=== PATIENT | male | born 1975 | race Caucasian/White ===

== ENCOUNTER → 2022-11-02 08:35 | Outpatient (BNVA) | payer OTHER, SELFPAY | PROVIDERS: PCP Internal Medicine; Referring Provider Internal Medicine; Visit Provider Physician Assistant | DX: Z13.89 Encounter for screening for other disorder (principal) ==

== ENCOUNTER → 2022-11-10 08:25 | Outpatient (BNVA) | payer OTHER, SELFPAY | PROVIDERS: PCP Internal Medicine; Visit Provider Physician Assistant Surgical | DX: E66.9 Obesity, unspecified (principal); D68.2 Hereditary deficiency of other clotting factors; I47.1 Supraventricular tachycardia; Z68.37 Body mass index [BMI] 37.0-37.9, adult | CPT/HCPCS: 99202 ==

== ENCOUNTER 2022-11-12 08:02 | Outpatient (REF) | payer OTHER, SELFPAY ==
--- NOTE | ~2022-11-12 | XR_ITS ---
EXAMINATION: XR CHEST CLINICAL INFORMATION: Obesity. COMPARISON: None TECHNIQUE: 2 views of the chest were obtained. FINDINGS: No significant cardiomediastinal contour abnormality. Atrial loop recorder noted projecting over the left lower cardiomediastinal silhouette. No focal airspace opacity, pleural effusion or pneumothorax. Partially imaged cervical spine fusion hardware. No acute osseous abnormalities. The visualized upper abdomen is within normal limits. XR/XR chest 2V IMPRESSION: 1. No acute cardiopulmonary findings. 2. Atrial loop recorder noted.
--- NOTE | 2022-11-12 08:08 | ECG_ITS ---
Test Reason : obs Blood Pressure : / mmHG Vent. Rate : 059 BPM Atrial Rate : 059 BPM P-R Int : 162 ms QRS Dur : 078 ms QT Int : 396 ms P-R-T Axes : 059 022 043 degrees QTc Int : 392 ms Sinus bradycardia with sinus arrhythmia with occasional Premature ventricular complexes Otherwise normal ECG No previous ECGs available Referred By: Balta Bose Electronically Signed By:Azar Bacon
[2022-11-12 08:20] LABS: MANUAL DIFF FLAG NO
[2022-11-12 08:55] LABS: Basophils Percent Auto 0.6 % (0-2); Eosinophils Absolute Auto 0.2 X10*3/uL (0.0-0.4); Eosinophils Percent Auto 2.6 % (0-4); Hematocrit 44.2 % (42.0-52.0); Hemoglobin 15.1 g/dl (14.0-18.0); Imm Gran Abs Auto 0.02 X10*3/uL (0.00-0.03); Imm Gran Pct Auto 0.3 % (0.0-0.4); Lymphocytes Absolute Auto 2.5 X10*3/uL (1.2-4.9); Lymphocytes Percent Auto 38.1 % (20-40); Mean Corpuscular HGB Conc 34.2 g/dl (31.0-36.0); Mean Corpuscular Hemoglobin 29.3 pg (27.0-33.0); Mean Corpuscular Volume 85.8 fL (80.0-98.0); Mean Platelet Volume 11.3 fL (9.4-12.4); Monocytes Absolute Auto 0.6 X10*3/uL (0.1-1.2); Monocytes Percent Auto 9.8 % (2-11); Neutrophils Absolute Auto 3.2 x10*3/uL (2.0-8.3); Neutrophils Percent Auto 48.6 % (45-73); Platelet Count 256 X10*3/uL (160-400); Red Blood Count 5.15 X10*6/uL (4.60-5.80); Red Cell Distribution Width 11.9 % (11.0-16.0); White Blood Count 6.5 X10*3/uL (4.8-10.8)
[2022-11-12 09:29] LABS: Alanine Aminotransferase 40 U/L (0-40); Albumin Level 4.1 g/dL (3.5-5.0); Alkaline Phosphatase 64 U/L (39-117); Anion Gap 13 (12-20); Aspartate Amino Transferase 35 U/L (5-37); Bilirubin Total 1.1 mg/dL (0.0-1.0); Blood Urea Nitrogen 17 mg/dL (9-16); C Reactive Protein < 0.10 mg/dL (< or = 0.50); Calcium 9.4 mg/dL (8.4-10.2); Carbon Dioxide 25 mmol/L (22-29); Chloride 107 mmol/L (96-108); Cholesterol 228 mg/dL; Estimated Glomerular Filt Rate > 60; Glucose Random 114 mg/dL (60-115); HDL Cholesterol 38 mg/dL; Iron 170 mcg/dL (45-160); LDL Cholesterol Calculated 156 mg/dl; Percent Iron Saturation 58 % (15-50); Potassium 4.1 mmol/L (3.3-5.1); Sodium 141 mmol/L (135-145); Total Iron Binding Capacity 293 mcg/dL (228-428); Total Protein 6.9 g/dL (6.5-8.0); Triglycerides 171 mg/dL; Unsaturated Iron Binding 123 ug/dL
[2022-11-12 10:01] LABS: Ferritin 384 ng/mL (20-250); Folate 11.1 ng/mL (> or = 4.0); Insulin 23 uU/mL (2-29); TSH reflex Free T4 1.49 uIU/mL (0.32-4.0); Vitamin B12 454 pg/mL (200-900)
[2022-11-12 12:02] LABS: Estimated Average Glucose 108 mg/dL; Hemoglobin A1c % 5.4 %
[2022-11-16 14:14] LABS: Calcium (PTHI) 9.1 mg/dL (8.6-10.3); PTHI 41 pg/mL (16-77)
[2022-11-17 00:13] LABS: Zinc 79 mcg/dL (60-130)
[2022-11-18 10:13] LABS: Vitamin A 51 mcg/dL (38-98)
[2022-11-21 17:49] LABS: Vitamin B1 7 nmol/L (8-30)
== END 2022-11-12 08:03 | disposition home or self-care (01) ==
LOC: HO.LAB 08:02
PROVIDERS: PCP Internal Medicine; Visit Provider Physician Assistant Surgical
DX: E66.9 Obesity, unspecified (principal); I10 Essential (primary) hypertension
CPT/HCPCS: 36415; 71046; 80053; 80061; 82306; 82607; 82728; 82746; 83036; 83525; 83540; 83970; 84425; 84443; 84590; 84630; 85025; 86140; 93005

== ENCOUNTER → 2022-11-25 08:47 | Outpatient (BNVA) | payer OTHER, SELFPAY | PROVIDERS: PCP Internal Medicine; Visit Provider Dietitian, Registered | DX: E66.9 Obesity, unspecified (principal); Z68.35 Body mass index [BMI] 35.0-35.9, adult | CPT/HCPCS: 97802 ==

== ENCOUNTER 2022-11-30 13:56 | Outpatient (REF) | payer OTHER, SELFPAY ==
[2022-12-06 12:08] LABS: H Pylori Breath Test Negative (Negative)
== END 2022-11-30 13:57 | disposition home or self-care (01) ==
LOC: HO.LNP 13:56
PROVIDERS: PCP Internal Medicine; Referring Provider Internal Medicine; Visit Provider Physician Assistant Surgical
DX: E66.9 Obesity, unspecified (principal); Z79.01 Long term (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; Z68.37 Body mass index [BMI] 37.0-37.9, adult; Z71.3 Dietary counseling and surveillance; Z79.899 Other long term (current) drug therapy
CPT/HCPCS: 83013; 99211; 99212

== ENCOUNTER → 2022-12-08 11:54 | Outpatient (BNVA) | payer OTHER, SELFPAY | PROVIDERS: PCP Internal Medicine; Referring Provider Physician Assistant Surgical; Visit Provider Counselor Mental Health | DX: F41.0 Panic disorder [episodic paroxysmal anxiety] (principal); I47.1 Supraventricular tachycardia; E66.9 Obesity, unspecified | CPT/HCPCS: 90791 ==

== ENCOUNTER → 2022-12-30 08:22 | Outpatient (BNVA) | payer OTHER, SELFPAY | PROVIDERS: PCP Internal Medicine; Visit Provider Physician Assistant Surgical | DX: E66.9 Obesity, unspecified (principal); Z68.32 Body mass index [BMI] 32.0-32.9, adult | CPT/HCPCS: 99212 ==

== ENCOUNTER → 2023-01-06 14:46 | Outpatient (BNVA) | payer OTHER, SELFPAY | PROVIDERS: PCP Internal Medicine; Visit Provider Counselor Mental Health | DX: E66.9 Obesity, unspecified (principal); F41.0 Panic disorder [episodic paroxysmal anxiety]; I47.1 Supraventricular tachycardia; G47.33 Obstructive sleep apnea (adult) (pediatric); I10 Essential (primary) hypertension; D68.51 Activated protein C resistance; I26.99 Other pulmonary embolism without acute cor pulmonale; Z95.9 Presence of cardiac and vascular implant and graft, unspecified; Z68.32 Body mass index [BMI] 32.0-32.9, adult | CPT/HCPCS: 99212 ==

== ENCOUNTER 2023-01-27 08:59 | Outpatient (REF) | payer OTHER, SELFPAY ==
--- NOTE | ~2023-01-27 | FL_ITS ---
EXAMINATION: XR FLUOROSCOPY UPPER GI WITH AIR CLINICAL INFORMATION: Obesity. COMPARISON: None available. TECHNIQUE: Air-contrast upper GI examination. FINDINGS: Patient swallowed thin and thick barium and half-inch diameter barium tablet without difficulty. There is no evidence of nasopharyngeal reflux or tracheal aspiration. There is normal esophageal motility. No hiatal hernia is identified. No persistent esophageal stricture. No esophageal ulcerations seen. There was spontaneous gastroesophageal reflux to the level of the thoracic inlet, which cleared rapidly. The stomach demonstrates normal distensibility without abnormal mass or ulceration. There was no delay in gastric emptying. The duodenal bulb and sweep appeared unremarkable other than for a small duodenal diverticulum off the third portion of the duodenum. Status post previous cervical spine surgery with hardware present. FLUOROSCOPY TIME: 1.9 minutes. DOSE AREA PRODUCT: 27.480 Gy-cm2 (simental-centimeter squared). FL/FL upper GI w air IMPRESSION: Spontaneous transient and rapidly clearing gastroesophageal reflux to the level of the thoracic inlet without esophageal ulceration identified. Small duodenal diverticulum. Otherwise unremarkable upper GI examination.
== END 2023-01-27 09:00 | disposition home or self-care (01) ==
LOC: HO.XRAY 08:59
PROVIDERS: PCP Internal Medicine; Visit Provider Physician Assistant Surgical
DX: E66.9 Obesity, unspecified (principal); I10 Essential (primary) hypertension
CPT/HCPCS: 74246

== ENCOUNTER 2023-01-28 08:23 | Outpatient (REF) | payer OTHER, SELFPAY ==
--- NOTE | ~2023-01-28 | US_ITS ---
EXAMINATION: US COMPLETE ABDOMEN WITH LIVER ELASTOGRAPHY CLINICAL INFORMATION: Obesity. COMPARISON: None available. TECHNIQUE: Real-time imaging of the abdominal viscera. Noninvasive ultrasound liver fibrosis assessment is performed using Mark ElastPQ point quantification shear wave elastography (2D-SWE) with a C5-2 MHz transducer. Multiple elastography samples are obtained. FINDINGS: PANCREAS: Normal. The visualized pancreatic head and body are normal in appearance. The remainder of the pancreas is obscured from visualization by the overlying bowel gas. ABDOMINAL AORTA: The middle, and distal aortic segments are normal in caliber. INFERIOR VENA CAVA: Visualized portions are normal. LIVER: Normal. The liver demonstrates normal size, contour and echogenicity. No focal lesion or intrahepatic biliary duct dilatation. The right lobe measures 15.6 cm in length. The left lobe measures 7.7 cm in length. Portal flow is hepatopetal. Shear wave liver elastography median stiffness is 1.94 m/s (reference: normal median stiffness is 1.3 m/s or less). IQR/median stiffness to assess sampling precision is 0.15 (reference: good quality data set is IQR/median stiffness of 0.15 or less). GALLBLADDER: Gallbladder wall thickness is 0.2 cm. The gallbladder is physiologically distended without evidence of stones, sludge, polyps, wall thickening or pericholecystic fluid. COMMON BILE DUCT: Normal in caliber measuring 0.5 cm in diameter. RIGHT KIDNEY: Normal. No hydronephrosis. No renal calculi or focal parenchymal lesions. The kidney measures 12.1 cm in maximum dimension. LEFT KIDNEY: There is an anechoic cyst in the midpole measuring 0.7 x 0.5 x 0.7 cm. No hydronephrosis. No renal calculi or focal parenchymal lesions. The kidney measures 12.4 cm in maximum dimension. SPLEEN: Normal. The spleen measures 10.4 cm in maximum dimension. FREE FLUID: None. US/US abdomen comp w elastography IMPRESSION: 1. Anechoic cyst midpole left kidney. Rest of the abdominal ultrasound is unremarkable. 2. Liver elastography: Median liver stiffness measures 1.94 m/s corresponding to cACLD (suggestive). REFERENCE: Society of Radiologists in Ultrasound Liver Stiffness Thresholds (2020): LIVER STIFFNESS THRESHOLDS: *Liver Stiffness equal or less than 1.3 m/s: High probability of being normal. *Liver Stiffness less than 1.7 m/s: In the absence of other known clinical signs, rules out compensated advanced chronic liver disease. *Liver Stiffness 1.7-2.1 m/s: Suggestive of compensated advanced chronic liver disease but need further test for confirmation. *Liver Stiffness over 2.1 m/s: Rules in compensated advanced chronic liver disease. *Liver Stiffness over 2.4 m/s: Suggestive of clinically significant portal hypertension. QUALITY OF DATA SET: *IQR/Median value equal or less than 0.15 implies a quality data set. *IQR/Median value over 0.15 implies a poor quality data set. SIGNIFICANT CHANGE FROM PRIOR EXAM: Significant change if liver stiffness measurement is 10% or greater from prior exam. OTHER CONSIDERATIONS: The stage of liver fibrosis may be overestimated in the setting of acute hepatitis, liver inflammation, elevated liver function tests, hepatic vascular congestion, obstructive cholestasis, non-fasting state, and infiltrative diseases such as amyloidosis and lymphoma. In some patients with NAFLD, the liver stiffness thresholds for compensated advanced chronic liver disease may be lower. In causes other than viral hepatitis and NAFLD, liver stiffness thresholds are not well established.
== END 2023-01-28 08:24 | disposition home or self-care (01) ==
LOC: HO.US 08:23
PROVIDERS: PCP Internal Medicine; Visit Provider Physician Assistant Surgical
DX: Z01.818 Encounter for other preprocedural examination (principal); E66.9 Obesity, unspecified; K21.9 Gastro-esophageal reflux disease without esophagitis; I10 Essential (primary) hypertension
CPT/HCPCS: 76705; 76981

== ENCOUNTER → 2023-02-02 09:48 | Outpatient (BNVA) | payer OTHER, SELFPAY | PROVIDERS: PCP Internal Medicine; Visit Provider Physician Assistant Surgical ==

== ENCOUNTER 2023-02-05 | Outpatient (REF) | payer OTHER, SELFPAY ==
[2023-02-04 11:14] VITALS: BMI 31.3
== END 2023-02-05 00:01 ==
LOC: HO.PAT
PROVIDERS: PCP Internal Medicine; Visit Provider Surgery
DX: Z01.818 Encounter for other preprocedural examination (principal); E66.9 Obesity, unspecified
CPT/HCPCS: 86850; 86900; 86901

== ENCOUNTER 2023-02-05 08:15 | Outpatient (REF) | payer OTHER, SELFPAY ==
[2023-02-05 08:48] LABS: MANUAL DIFF FLAG NO
[2023-02-05 09:19] LABS: Basophils Percent Auto 0.7 % (0-2); Eosinophils Absolute Auto 0.2 X10*3/uL (0.0-0.4); Eosinophils Percent Auto 3.9 % (0-4); Hematocrit 42.3 % (42.0-52.0); Hemoglobin 14.6 g/dl (14.0-18.0); Imm Gran Abs Auto 0.01 X10*3/uL (0.00-0.03); Imm Gran Pct Auto 0.2 % (0.0-0.4); Lymphocytes Absolute Auto 2.1 X10*3/uL (1.2-4.9); Lymphocytes Percent Auto 34.6 % (20-40); Mean Corpuscular HGB Conc 34.5 g/dl (31.0-36.0); Mean Corpuscular Volume 86.9 fL (80.0-98.0); Mean Platelet Volume 11.4 fL (9.4-12.4); Monocytes Absolute Auto 0.7 X10*3/uL (0.1-1.2); Monocytes Percent Auto 11.5 % (2-11); Neutrophils Absolute Auto 2.9 x10*3/uL (2.0-8.3); Neutrophils Percent Auto 49.1 % (45-73); Platelet Count 218 X10*3/uL (160-400); Red Blood Count 4.87 X10*6/uL (4.60-5.80); Red Cell Distribution Width 12.6 % (11.0-16.0); White Blood Count 5.9 X10*3/uL (4.8-10.8)
[2023-02-05 09:27] LABS: INTERNATIONAL NORM RATIO 2.5 (0.9-1.1); Prothrombin Time 30.1 SEC (10.0-13.1)
[2023-02-05 09:30] LABS: Partial Thromboplastin Time 45.7 SEC (26.0-36.4)
[2023-02-05 09:57] LABS: Alanine Aminotransferase 23 U/L (0-40); Albumin Level 4.1 g/dL (3.5-5.0); Alkaline Phosphatase 61 U/L (39-117); Anion Gap 11 (12-20); Aspartate Amino Transferase 27 U/L (5-37); Bilirubin Total 0.8 mg/dL (0.0-1.0); Blood Urea Nitrogen 17 mg/dL (9-16); C Reactive Protein < 0.10 mg/dL (< or = 0.50); Calcium 9.8 mg/dL (8.4-10.2); Carbon Dioxide 30 mmol/L (22-29); Chloride 106 mmol/L (96-108); Cholesterol 170 mg/dL; Estimated Glomerular Filt Rate > 60; Glucose Random 92 mg/dL (60-115); HDL Cholesterol 43 mg/dL; Iron 141 mcg/dL (45-160); LDL Cholesterol Calculated 115 mg/dl; Percent Iron Saturation 51 % (15-50); Potassium 4.6 mmol/L (3.3-5.1); Sodium 142 mmol/L (135-145); Total Iron Binding Capacity 278 mcg/dL (228-428); Total Protein 6.7 g/dL (6.5-8.0); Triglycerides 62 mg/dL; Unsaturated Iron Binding 137 ug/dL
[2023-02-05 10:06] LABS: Estimated Average Glucose 97 mg/dL; Hemoglobin A1C 122.9263 umol/L
[2023-02-05 10:11] LABS: Ferritin 270 ng/mL (20-250); TSH reflex Free T4 1.53 uIU/mL (0.32-4.0); Vitamin B12 476 pg/mL (200-900); Vitamin D 25-OH Total 54.4 ng/mL (>30)
[2023-02-08 11:03] LABS: Calcium (PTHI) 9.6 mg/dL (8.6-10.3); PTHI 28 pg/mL (16-77)
[2023-02-10 16:19] LABS: Zinc 80 mcg/dL (60-130)
[2023-02-11 23:39] LABS: Vitamin A 35 mcg/dL (38-98)
[2023-02-12 13:03] LABS: Vitamin B1 76 nmol/L (8-30)
== END 2023-02-05 08:16 | disposition home or self-care (01) ==
LOC: HO.LAB 08:15
PROVIDERS: PCP Internal Medicine; Visit Provider Surgery
DX: E66.9 Obesity, unspecified (principal); G47.33 Obstructive sleep apnea (adult) (pediatric); I10 Essential (primary) hypertension; I47.1 Supraventricular tachycardia; I26.99 Other pulmonary embolism without acute cor pulmonale; D68.51 Activated protein C resistance; Z98.84 Bariatric surgery status; Z79.899 Other long term (current) drug therapy; Z79.01 Long term (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; Z95.9 Presence of cardiac and vascular implant and graft, unspecified
CPT/HCPCS: 36415; 80053; 80061; 82306; 82607; 82728; 83036; 83540; 83970; 84425; 84443; 84590; 84630; 85025; 85610; 85730; 86140; 99212

== ENCOUNTER → 2023-02-17 14:12 | Outpatient (BNVA) | payer OTHER, SELFPAY | PROVIDERS: PCP Internal Medicine; Referring Provider Internal Medicine; Visit Provider Internal Medicine | DX: Z01.810 Encounter for preprocedural cardiovascular examination (principal); I47.1 Supraventricular tachycardia; R07.2 Precordial pain | CPT/HCPCS: 99202 ==

== ENCOUNTER → 2023-03-17 07:49 | Outpatient (REF) | payer OTHER, SELFPAY ==
--- NOTE | 2023-03-17 07:53 | CA_ITS ---
Transthoracic Echocardiogram Patient (Last, First, Middle): Abdoulaye Suarez, Gender: Male Date of : 1975 Age: 47 Procedure Date: 03/17/2023 Procedure Type: Transthoracic Echocardiogram Location: OP Height: 185.42 cm Weight: 102.97 kg BSA: 2.27 m2 Heart Rate: bpm BP: 124 / 78 mmHg [employer]: Referring MD: Juan Daniel Quijano MD Symptoms: I47.1 - Supraventricular tachycardia Study Quality: Adequate ECG Rhythm: Sinus Conclusions: - The left ventricular systolic function is normal. The calculated ejection fraction is 61% by biplane method. - No obvious valvular pathology seen on this study. Findings Left Ventricle Normal left ventricular cavity size. There is normal left ventricular wall thickness. The left ventricular systolic function is normal. The calculated ejection fraction is 61% by biplane method. There is no evidence of regional wall motion abnormalities. Diastolic function is normal for age. Right Ventricle Normal right ventricular cavity size and systolic function. Atria Both atria are normal in size. Aortic Valve There is a normal trileaflet aortic valve. There is no aortic valve stenosis. There is no aortic valve regurgitation. Mitral Valve The mitral valve appears normal. There is no mitral valve regurgitation. There is no mitral valve stenosis. Pulmonic Valve The pulmonic valve is likely normal. Tricuspid Valve Normal tricuspid valve structure. There is mild tricuspid valve regurgitation. There is no evidence of pulmonary hypertension. Great Vessels The asc aorta is normal in size. Venous The inferior vena cava is normal in size and collapses greater than 50% with inspiration. There is evidence of a dilated coronary sinus. Pericardium/Pleural There is no evidence of pericardial effusion. Prior Study Comparison No prior study available for comparison. Recommendations, Care & Conclusions No obvious valvular pathology seen on this study. Measurements 2D Linear Measurements IVSd: 1.03 0.6-0.9/0.6-1.0 cm LVIDd: 5.12 3.9-5.3/4.2-5.9 cm LVIDd Index: 2.26 2.4-3.2/2.2-3.1 cm/m2 LVIDs: 2.96 2.0-3.6 cm LVPWd: 1.01 0.7-1.1 cm Ao Root: 3.50 2.1-3.5 cm LA Diam: 4.10 2.7-3.8/3.0-4.0 cm LAIDs Index: 1.81 1.5-2.3 cm/m2 LV Mass: 242.16 67-162/88-224 g LV Mass Index: 106.68 43-95/49-115 g/m2 LVOT Diam: 2.40 3.0+(-)1.3 cm 2D Systolic Function EF 4C: 55.80 >55% EF 2C: 65.80 >55% EF BiP: 60.90 >55% Mitral Valve MV Pk E: 0.75 MV PK A: 0.54 MV Decel Time: 196.00 E/A: 1.40 E'Lateral: 14.10 E'Medial: 10.00 E/E' Med: 7.50 E/E' Lat: 5.30 PHT: 58.00 MVA PHT: 3.79 Decel [place]: 3.84 Aortic Valve AoV Pk Micky: 1.39 AoV Mn Micky: 0.99 AoV VTI: 0.41 AoV Pk Grad: 8.00 Aov Mn Grad: 5.00 NED Cont.VTI: 2.54 LVOT LVOT Pk Micky: 1.07 LVOT Mn Micky: 0.67 LVOT VTI: 0.23 LVOT Pk Grad: 5.00 LVOT Mn Grad: 2.00 LVOT Diam: 2.40 LVOT Area: 4.52 Diastolic Function MV Pk E: 0.75 MV Pk A: 0.54 E/A: 1.40 E'Medial: 10.00 E/E' Med: 7.50 E' Laterial: 14.10 E/E' Lat: 5.30 Right Ventricle TAPSE (mm): 25.90 TVS' Micky: 12.30 Tricuspid Valve TR Pk Micky: 2.25 TR Pk Grad: 20.00 RA Press: 3.00 Great Vessels Aorta Ao Root-2D: 3.50 2.0-3.7 cm Ao Asc: 3.20 2.1-3.4 cm Pulmonary Valve PV Pk Micky: 1.05 Peak PV Grad: 4.00 [place] Pk Micky: 1.02 Updated in Other Vendor System with Status of Final Juan Daniel Quijano MD electronically signed on 03/19/2023 2:10:30 PM with status of Final
== END ==
LOC: HO.CARD 07:49
PROVIDERS: PCP Internal Medicine; Visit Provider Internal Medicine
DX: I47.1 Supraventricular tachycardia (principal)
CPT/HCPCS: 93306

== ENCOUNTER 2023-04-04 16:56 | Emergency (ER) | payer OTHER, SELFPAY ==
[2023-04-04 17:46] VITALS: BP 117/66; PULSE 55; RESP 18; TEMP 36.5; O2SAT 98; BMI 29.0
--- NOTE | 2023-04-04 17:56 | ED_ITS ---
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 Pain started after patient was swimming and did exert pain increases on palpation and movement of the right shoulder and taking a deep breath no cough no shortness of breath patient INR was 2.8, 3 days ago saturating 98% at room no fever no chills no cough Related Data Home Medications Medication Instructions Recorded Confirmed CPAP (CPAP Machine/Device) 11/02/22 04/07/23 warfarin 10 mg tablet 10 mg PO DAILY 11/02/22 04/07/23 hydroxyzine HCl 10 mg tablet 10 mg PO Q8-10H PRN Anxiety 02/04/23 04/07/23 lorazepam 1 mg tablet 1 mg PO BEDTIME PRN Sleep 02/04/23 04/07/23 thiamine HCl (vitamin B1) 100 mg 100 mg PO DAILY 04/07/23 04/07/23 tablet Previous Rx's Medication Instructions Recorded polyethylene glycol 3350 17 gram See Rx Instructions PO DAILY #14 02/04/23 oral powder packet (Miralax) packets cholecalciferol (vitamin D3) 125 125 mcg PO DAILY #30 caps 02/15/23 mcg (5,000 unit) capsule rosuvastatin 10 mg tablet 10 mg PO DAILY #90 tabs 04/07/23 Allergies Allergy/AdvReac Type Severity Reaction Status Date / Time codeine Allergy Nausea Verified 04/07/23 08:54 STATINS Allergy Mild HEART Uncoded 04/07/23 08:54 PALPITATIONS Review of Systems Review of Systems: Yes all other systems are reviewed and are negative [facility] Past Medical History Medical History Anxiety Depression Factor V Leiden GERD (gastroesophageal reflux disease) Hereditary deficiency of other clotting factors Hyperlipidemia Obesity Pulmonary embolism Sleep apnea Surgical History History of cardiac radiofrequency ablation Hx of cardiac cath Hx of knee surgery Hx of neck surgery Presence of cardiac and vascular implant and graft Family History Family History Mother Cancer Father Diabetes Hypertension Heart disease Heart attack Sister No problems noted. Brother No problems noted. Sister Factor 5 Leiden mutation, heterozygous Son Factor 5 Leiden mutation, heterozygous Daughter No problems noted. Daughter No problems noted. 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 Oriented X3. No acute distress. Eyes: PERRLA, No Nystagmus ENT: Pharynx normal. Oral Mucosa moist Neck: Normal inspection. Neck supple. CVS: Normal heart rate and rhythm. Pulses normal. Respiratory: No respiratory distress. Equal air entry bilateral, no wheezing/rales/rhonchi, right chest wall tenderness Abdomen: Soft and nontender. Bowel sounds are present, no mass palpable, no CVA tenderness Skin: Skin warm and dry. Normal skin color. Normal skin turgor. Extremities: No lower extremity edema. No calf tenderness Neuro: Oriented X 3. No motor deficit. Course Course Course Narrative: RmE: 47 yold male with pmh of Factor V defiency and PE presents to the ED for right sided chest pain/shoulder pain.He was swimming and starting having pain. patinet states slight pleurisy. patient on coumadin. Sent from urgent Care due to risk of PE. EKG, chest xray, and labs ordered Medications Administered Discontinued Medications Generic Name Dose Route Start Last Admin Trade Name Freq PRN Reason Stop Dose Admin Iohexol 100 ml 04/04/23 21:10 04/04/23 21:10 Iohexol 350 Mg/Ml 100 Ml Infus..Btl IV 04/04/23 21:11 65 ml ONCE ONE Administration Medical Decision Making Medical Decision Making MDM Narrative: Patient's CTA chest negative for PE ,pain is muscular Lab Data [facility] Lab Attestation statement: I reviewed the patient's lab results. 04/04/23 19:01 04/04/23 19:01 Labs: Lab Results 04/04/23 04/04/23 04/04/23 Range/Units 19:01 19:01 19:01 WBC 6.9 (4.8-10.8) X10*3/uL RBC 5.14 (4.60-5.80) X10*6/uL Hgb 15.0 (14.0-18.0) g/dl Hct 45.6 (42.0-52.0) % MCV 88.7 (80.0-98.0) fL MCH 29.2 (27.0-33.0) pg MCHC 32.9 (31.0-36.0) g/dl RDW 12.5 (11.0-16.0) % Plt Count 235 (160-400) X10*3/uL MPV 11.0 (9.4-12.4) fL Immature Gran % (Auto) 0.3 (0.0-0.4) % Neut % (Auto) 51.0 (45-73) % Lymph % (Auto) 36.7 (20-40) % Bladen % (Auto) 9.7 (2-11) % Eos % (Auto) 1.9 (0-4) % Baso % (Auto) 0.4 (0-2) % Lymph # (Auto) 2.5 (1.2-4.9) X10*3/uL Bladen # (Auto) 0.7 (0.1-1.2) X10*3/uL Eos # (Auto) 0.1 (0.0-0.4) X10*3/uL Baso # (Auto) 0.0 (0.0-0.2) X10*3/uL Abs Immat Gran (auto) 0.02 (0.00-0.03) X10*3/uL Absolute Neuts (auto) 3.5 (2.0-8.3) x10*3/uL Absolute Nucleated RBC 0.000 (0.0-0.012) X10*3/uL Nucleated RBC % (auto) 0.0 (0.0-0.2) /100WBC PT (10.0-13.1) SEC INR (0.9-1.1) APTT (26.0-36.4) SEC D-Dimer High Sensitivty < 150 NG/ML Sodium 142 (135-145) mmol/L Potassium 4.9 (3.3-5.1) mmol/L Chloride 105 (96-108) mmol/L Carbon Dioxide 29 (22-29) mmol/L Anion Gap 13 (12-20) BUN 18 H (9-16) mg/dL Creatinine 0.84 (0.5-1.4) mg/dL Estim Creat Clear Calc 132.1 Estimated GFR > 60 Random Glucose 95 (60-115) mg/dL Calcium 10.1 (8.4-10.2) mg/dL Total Bilirubin 0.4 (0.0-1.0) mg/dL AST 25 (5-37) U/L ALT 22 (0-40) U/L Alkaline Phosphatase 61 (39-117) U/L Troponin I High Sens (<3.5-35.0) ng/L Total Protein 7.5 (6.5-8.0) g/dL Albumin 4.2 (3.5-5.0) g/dL Lipase 15 (8-78) U/L 04/04/23 04/04/23 Range/Units 19:01 19:01 WBC (4.8-10.8) X10*3/uL RBC (4.60-5.80) X10*6/uL Hgb (14.0-18.0) g/dl Hct (42.0-52.0) % MCV (80.0-98.0) fL MCH (27.0-33.0) pg MCHC (31.0-36.0) g/dl RDW (11.0-16.0) % Plt Count (160-400) X10*3/uL MPV (9.4-12.4) fL Immature Gran % (Auto) (0.0-0.4) % Neut % (Auto) (45-73) % Lymph % (Auto) (20-40) % Bladen % (Auto) (2-11) % Eos % (Auto) (0-4) % Baso % (Auto) (0-2) % Lymph # (Auto) (1.2-4.9) X10*3/uL Bladen # (Auto) (0.1-1.2) X10*3/uL Eos # (Auto) (0.0-0.4) X10*3/uL Baso # (Auto) (0.0-0.2) X10*3/uL Abs Immat Gran (auto) (0.00-0.03) X10*3/uL Absolute Neuts (auto) (2.0-8.3) x10*3/uL Absolute Nucleated RBC (0.0-0.012) X10*3/uL Nucleated RBC % (auto) (0.0-0.2) /100WBC PT 23.6 H (10.0-13.1) SEC INR 2.0 H (0.9-1.1) APTT 42.5 H (26.0-36.4) SEC D-Dimer High Sensitivty NG/ML Sodium (135-145) mmol/L Potassium (3.3-5.1) mmol/L Chloride (96-108) mmol/L Carbon Dioxide (22-29) mmol/L Anion Gap (12-20) BUN (9-16) mg/dL Creatinine (0.5-1.4) mg/dL Estim Creat Clear Calc Estimated GFR Random Glucose (60-115) mg/dL Calcium (8.4-10.2) mg/dL Total Bilirubin (0.0-1.0) mg/dL AST (5-37) U/L ALT (0-40) U/L Alkaline Phosphatase (39-117) U/L Troponin I High Sens < 2.7 (<3.5-35.0) ng/L Total Protein (6.5-8.0) g/dL Albumin (3.5-5.0) g/dL Lipase (8-78) U/L Discharge Plan Discharge Clinical Impression: Acute chest wall pain Patient Disposition: Home, Self-Care Instructions: Chest Wall Pain (ED) Additional Instructions: The chest pain is likely musculoskeletal take Tylenol for pain No blood clot or internal injury seen Prescriptions: No Action cholecalciferol (vitamin D3) 125 mcg (5,000 unit) capsule 125 mcg PO DAILY Qty: 30 2RF hydroxyzine HCl 10 mg Tablet 10 mg PO Q8-10H PRN (Reason: Anxiety) lorazepam 1 mg Tablet 1 mg PO BEDTIME PRN (Reason: Sleep) (DME) CPAP Machine/Device Device See Rx Instructions .Route Rx Instructions: As directed warfarin 10 mg tablet 10 mg PO DAILY polyethylene glycol 3350 [Miralax] 17 gram powder in packet See Rx Instructions PO DAILY Qty: 14 0RF Rx Instructions: Take 7 packets 2 days before surgery and 7 packets 1 day before surgery. Mix each packet with 8 oz's of water before surgery. thiamine HCl (vitamin B1) 100 mg tablet 100 mg PO DAILY rosuvastatin 10 mg tablet 10 mg PO DAILY Qty: 90 3RF Interventions: ED Discharge Assessment Last Done: 04/04/23 23:55 Discharge Date/Time: 04/04/23 23:55
[2023-04-04 19:45] VITALS: BP 120/69; PULSE 49; RESP 16; TEMP 36.9; O2SAT 97
--- NOTE | 2023-04-04 20:00 | PC.NURSE ---
Pt A&Ox4, reports right sided, dull, non radiating, chest pressure. Denies SOB, palpitations. States it worsens with deep breathing weird feeling . IV line placed, Pt placed on bedside monitor. HR noted to be in the low 40s on EKG, provider Dr. Mcgraw aware.
[2023-04-04 23:01] VITALS: BP 105/62; PULSE 52; RESP 16; O2SAT 98
== END 2023-04-04 23:55 | disposition home or self-care (01) ==
PROVIDERS: Emergency Provider Internal Medicine; PCP Internal Medicine
DX: R07.89 Other chest pain (principal); Z79.899 Other long term (current) drug therapy
CPT/HCPCS: 36415; 71046; 71275; 80053; 83690; 84484; 85025; 85379; 85610; 85730; 93005; 99284; 99285; Q9967

== ENCOUNTER → 2023-04-04 17:53 | Outpatient (BNV) | payer OTHER, SELFPAY | PROVIDERS: Emergency Provider Internal Medicine; PCP Internal Medicine; Visit Provider Internal Medicine Cardiovascular Disease | DX: R07.9 Chest pain, unspecified (principal) | CPT/HCPCS: 93010 ==

== ENCOUNTER → 2023-04-05 23:59 | Outpatient (BNV) | payer OTHER, SELFPAY ==
--- NOTE | 2023-04-06 11:47 | MHC.OFFVIS ---
Intake Intake Visit Reasons: Remote ILR Check- [employer] Allergies codeine Allergy (Verified 04/04/23 17:45) Nausea STATINS Allergy (Mild, Uncoded 02/17/23 14:32) HEART PALPITATIONS PFSH Medical History Anxiety Depression Factor V Leiden GERD (gastroesophageal reflux disease) Hereditary deficiency of other clotting factors Hyperlipidemia Obesity Pulmonary embolism Sleep apnea Surgical History History of cardiac radiofrequency ablation Hx of cardiac cath Hx of knee surgery Hx of neck surgery Presence of cardiac and vascular implant and graft Family History Mother Cancer Father Diabetes Hypertension Heart disease Heart attack Sister No problems noted. Brother No problems noted. Sister Factor 5 Leiden mutation, heterozygous Son Factor 5 Leiden mutation, heterozygous Daughter No problems noted. Daughter No problems noted. Daughter Multiple sclerosis Social History Are you a primary pharmacy care coordinator to a significant other at home: Yes Do you presently have visiting nurse or other home services: No Alcohol intake: never Patient Tobacco Use Status: Never used Tobacco Office Procedures Cardiac Device Check Cardiac Device Check Details: Date of service 04/05/2023; in the current monitoring period, there is no evidence of atrial fibrillation. No atrial fibrilllation during lifetime. No significant bradycardia or pauses. [id number] Cardiac Interrogation, subcut cardiac rhythm monitor Procedure code (CPT) selection complete Assessment & Plan Assessment & Plan (1) SVT (supraventricular tachycardia): Code(s): I47.1 - Supraventricular tachycardia Coding Level of Care Code Procedure Only Diagnoses SVT (supraventricular tachycardia) I47.1 CPT Codes Cardiac Device Check - Cardiac Device 16: [id number] Cardiac Interrogation, subcut cardiac rhythm monitor ([id number])
== END ==
PROVIDERS: PCP Internal Medicine; Visit Provider Internal Medicine
DX: I47.1 Supraventricular tachycardia (principal); Z95.818 Presence of other cardiac implants and grafts
CPT/HCPCS: 93298

== ENCOUNTER 2023-04-07 08:53 | Outpatient (AMB) | payer OTHER, SELFPAY ==
--- NOTE | 2023-04-07 08:53 | MHC.OFFVIS ---
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 Mix each packet with 8 oz's of water before surgery. thiamine HCl (vitamin B1) 100 mg PO DAILY warfarin 10 mg PO DAILY HPI HPI Comments History of Present Illness Details Abdoulaye returns for follow-up. Recently seen in consultation regarding preoperative risk stratification for bariatric surgery. He generally goes to [facility], but would like to switch his cardiac care to us. It seems that he has had a long history of palpitations. It has been previously attributed to anxiety, as he does have significant anxiety as well. Subsequently, it appears that he underwent implantable loop recorder placement. 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 After that, his palpitations are significantly less. Main issue seems to be extreme degrees of anxiety. He states he also goes psychiatric. No specific cardiac symptoms overall. Recently had some musculoskeletal type chest pain, for which he was seen in the ER. Otherwise, he has completed an echocardiogram and coronary CTA. [facility] Medical History Anxiety Depression Factor V Leiden GERD (gastroesophageal reflux disease) Hereditary deficiency of other clotting factors Hyperlipidemia Obesity Pulmonary embolism Sleep apnea Surgical History History of cardiac radiofrequency ablation Hx of cardiac cath Hx of knee surgery Hx of neck surgery Presence of cardiac and vascular implant and graft Family History Mother Cancer Father Diabetes Hypertension Heart disease Heart attack Sister No problems noted. Brother No problems noted. Sister Factor 5 Leiden mutation, heterozygous Son Factor 5 Leiden mutation, heterozygous Daughter No problems noted. Daughter No problems noted. Daughter Multiple sclerosis Social History Are you a primary neonatal intensive care nurse to a significant other at home: Yes Do you presently have visiting nurse or other home services: No Alcohol intake: never Patient Tobacco Use Status: Never used Tobacco Review of Systems Const Denies weakness ENT Denies dizziness Card Denies chest pain, Denies chest pain with activity, Denies syncope, Denies rapid heart rate, Denies pedal edema, Denies edema, Denies leg edema, Denies lightheadedness, Denies palpitations, Denies dyspnea, Denies dyspnea on exertion and Denies orthopnea Resp Denies cough, Denies dyspnea and Denies dyspnea on exertion GI Denies hematochezia and Denies change in stool character Musc Denies abnormal gait, Denies muscle cramps, Denies muscle weakness, Denies numbness, Denies radiating pain into limb and Denies tingling Neuro Denies abnormal gait, Denies dizziness, Denies syncope, Denies numbness, Denies tingling and Denies weakness Endo Denies palpitations Physical Exam Vital Signs: Last Vital Signs Pulse 49 L 04/07/23 08:54 BP 90/62 04/07/23 08:54 BMI result Body Mass Index 30.1 Const General: comfortable and no acute distress Orientation/consciousness: patient oriented x3 HEENT Other: Unremarkable Head: Yes normal to inspection Neck Neck: Yes normal visual inspection Chest Chest palpation & inspection: normal inspection of the chest Resp Auscultation: clear to auscultation bilaterally Cardio Palpation: normal PMI Heart sounds: S1 normal heart sound present, S2 normal heart sound present, no gallops, no murmurs and no rubs GI Palpation (GI): Soft to palpation Back/Spine/Pelvis Other: unremarkable Skin General skin exam: no rashes or lesions noted Neuro General: patient oriented x3 Extrem General: Yes normal to inspection Psych Mental Status: mental status grossly normal Assessment & Plan Assessment & Plan (1) Preoperative cardiovascular examination: Code(s): Z01.810 - Encounter for preprocedural cardiovascular examination (2) SVT (supraventricular tachycardia): Code(s): I47.1 - Supraventricular tachycardia (3) Atherosclerotic cardiovascular disease: Code(s): I25.10 - Atherosclerotic heart disease of [place] coronary artery without angina pectoris Plan Cardiac studies reviewed. Echocardiogram with LVEF of 61%. No wall motion abnormalities. Normal diastolic function. Otherwise unremarkable. Coronary CTA shows only mild coronary disease. Nothing hemodynamically significant. Records from prior editor trade journal reviewed. Ablation records also reviewed. 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 Findings discussed with patient and significant other. Mainly reassured him a lot. With regard to the implantable loop recorder, he would like to still keep it till the battery runs out. That is acceptable and then we can remove it. He already has baseline bradycardia and hence will not use any beta-blockers or calcium channel blockers. Hopefully there are no more AVNRT events. For the CAD diagnosis, start small dose of statin. Lipids in a few weeks. Otherwise, we will see him in about 6 months time. He will call us with concerns. Total time spent including review of data, counseling, documentation, coordination of care-32 minutes. Orders: Orders Lipid Panel 3 Months E78.5 - Hyperlipidemia, unspecified, I25.10 - Atherosclerotic heart disease of [place] coronary artery without angina pectoris Liver Panel 3 Months I25.10 - Atherosclerotic heart disease of [place] coronary artery without angina pectoris Medications: New rosuvastatin 10 mg PO DAILY 90 tabs 3RF I25.10 - Atherosclerotic heart disease of [place] coronary artery without angina pectoris Changed From thiamine HCl (vitamin B1) 100 mg PO DAILY 30 tabs 2RF To thiamine HCl (vitamin B1) 100 mg PO DAILY Coding Level of Care Code Est Pt Level 3 (16361) Diagnoses Preoperative cardiovascular examination Z01.810 SVT (supraventricular tachycardia) I47.1 Atherosclerotic cardiovascular disease I25.10
[2023-04-07 08:54] VITALS: BP 90/62; PULSE 49; BMI 30.1
== END 2023-04-07 09:19 | disposition home or self-care (01) ==
PROVIDERS: PCP Internal Medicine; Visit Provider Internal Medicine
DX: Z01.810 Encounter for preprocedural cardiovascular examination (principal); I47.1 Supraventricular tachycardia; I25.10 Atherosclerotic heart disease of native coronary artery without angina pectoris
CPT/HCPCS: 99213

== ENCOUNTER → 2023-04-07 08:53 | Outpatient (BNVA) | payer OTHER, SELFPAY | PROVIDERS: PCP Internal Medicine; Visit Provider Internal Medicine | DX: Z01.810 Encounter for preprocedural cardiovascular examination (principal); I47.1 Supraventricular tachycardia; I25.10 Atherosclerotic heart disease of native coronary artery without angina pectoris; I10 Essential (primary) hypertension; E78.5 Hyperlipidemia, unspecified; Z95.810 Presence of automatic (implantable) cardiac defibrillator; Z99.89 Dependence on other enabling machines and devices; Z79.01 Long term (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 | CPT/HCPCS: 99212 ==

== ENCOUNTER → 2023-06-07 23:59 | Outpatient (BNV) | payer OTHER, SELFPAY ==
--- NOTE | 2023-06-12 14:05 | A.OFFVIS_ITS ---
Intake Intake Visit Reasons: Remote ILR Check- [employer] Allergies codeine Allergy (Verified 04/07/23 08:54) Nausea STATINS Allergy (Mild, Uncoded 04/07/23 08:54) HEART PALPITATIONS PFSH Medical History Anxiety Depression Factor V Leiden GERD (gastroesophageal reflux disease) Hereditary deficiency of other clotting factors Hyperlipidemia Obesity Pulmonary embolism Sleep apnea Surgical History History of cardiac radiofrequency ablation Hx of cardiac cath Hx of knee surgery Hx of neck surgery Presence of cardiac and vascular implant and graft Family History Mother Cancer Father Diabetes Hypertension Heart disease Heart attack Sister No problems noted. Brother No problems noted. Sister Factor 5 Leiden mutation, heterozygous Son Factor 5 Leiden mutation, heterozygous Daughter No problems noted. Daughter No problems noted. Daughter Multiple sclerosis Social History Are you a primary healthcare administrative assistant to a significant other at home: Yes Do you presently have visiting nurse or other home services: No Alcohol intake: never Patient Tobacco Use Status: Never used Tobacco Office Procedures Cardiac Device Check Cardiac Device Check Details: Date of service 06/07/2023; in the current monitoring period, there is no evidence of atrial fibrillation. [id number] Cardiac Interrogation, subcut cardiac rhythm monitor Procedure code (CPT) selection complete Assessment & Plan Assessment & Plan (1) SVT (supraventricular tachycardia): Code(s): I47.1 - Supraventricular tachycardia Coding Level of Care Code Procedure Only Diagnoses SVT (supraventricular tachycardia) I47.1 CPT Codes Cardiac Device Check - Cardiac Device 16: [id number] Cardiac Interrogation, subcut cardiac rhythm monitor ([id number])
== END ==
PROVIDERS: PCP Internal Medicine; Visit Provider Internal Medicine
DX: I47.1 Supraventricular tachycardia (principal); Z95.818 Presence of other cardiac implants and grafts
CPT/HCPCS: 93298

== ENCOUNTER → 2023-08-06 23:59 | Outpatient (BNV) | payer OTHER, SELFPAY ==
--- NOTE | 2023-08-06 15:08 | MHC.OFFVIS ---
Intake Intake Visit Reasons: Remote ILR Check- [employer] Allergies codeine Allergy (Verified 04/07/23 08:54) Nausea STATINS Allergy (Mild, Uncoded 04/07/23 08:54) HEART PALPITATIONS PFSH Medical History Anxiety Depression Factor V Leiden GERD (gastroesophageal reflux disease) Hereditary deficiency of other clotting factors Hyperlipidemia Obesity Pulmonary embolism Sleep apnea Surgical History History of cardiac radiofrequency ablation Hx of cardiac cath Hx of knee surgery Hx of neck surgery Presence of cardiac and vascular implant and graft Family History Mother Cancer Father Diabetes Hypertension Heart disease Heart attack Sister No problems noted. Brother No problems noted. Sister Factor 5 Leiden mutation, heterozygous Son Factor 5 Leiden mutation, heterozygous Daughter No problems noted. Daughter No problems noted. Daughter Multiple sclerosis Social History Are you a primary healthcare administrative assistant to a significant other at home: Yes Do you presently have visiting nurse or other home services: No Alcohol intake: never Patient Tobacco Use Status: Never used Tobacco Office Procedures Cardiac Device Check Cardiac Device Check Details: Date of service 08/06/2023; in the current monitoring period, there is no evidence of atrial fibrillation. No atrial fibrilllation during lifetime. During patient activated episodes, 1 area shows PVCs but otherwise sinus rhythm. [id number] Cardiac Interrogation, subcut cardiac rhythm monitor Procedure code (CPT) selection complete Assessment & Plan Assessment & Plan (1) SVT (supraventricular tachycardia): Code(s): I47.1 - Supraventricular tachycardia Coding Level of Care Code Procedure Only Diagnoses SVT (supraventricular tachycardia) I47.1 CPT Codes Cardiac Device Check - Cardiac Device 16: [id number] Cardiac Interrogation, subcut cardiac rhythm monitor ([id number])
== END ==
PROVIDERS: PCP Internal Medicine; Visit Provider Internal Medicine
DX: I47.10 Supraventricular tachycardia, unspecified (principal)
CPT/HCPCS: 93298

== ENCOUNTER → 2023-09-10 23:59 | Outpatient (BNV) | payer OTHER, SELFPAY ==
--- NOTE | 2023-09-14 11:53 | MHC.OFFVIS ---
Intake Intake Visit Reasons: Remote ILR Check- [employer] Allergies codeine Allergy (Verified 04/07/23 08:54) Nausea STATINS Allergy (Mild, Uncoded 04/07/23 08:54) HEART PALPITATIONS PFSH Medical History Anxiety Depression Factor V Leiden GERD (gastroesophageal reflux disease) Hereditary deficiency of other clotting factors Hyperlipidemia Obesity Pulmonary embolism Sleep apnea Surgical History History of cardiac radiofrequency ablation Hx of cardiac cath Hx of knee surgery Hx of neck surgery Presence of cardiac and vascular implant and graft Family History Mother Cancer Father Diabetes Hypertension Heart disease Heart attack Sister No problems noted. Brother No problems noted. Sister Factor 5 Leiden mutation, heterozygous Son Factor 5 Leiden mutation, heterozygous Daughter No problems noted. Daughter No problems noted. Daughter Multiple sclerosis Social History Are you a primary ambulatory care coordinator to a significant other at home: Yes Do you presently have visiting nurse or other home services: No Alcohol intake: never Patient Tobacco Use Status: Never used Tobacco Office Procedures Cardiac Device Check Cardiac Device Check Details: Date of service 09/10/2023; in the current monitoring period, there is no evidence of atrial fibrillation. [id number] Cardiac Interrogation, subcut cardiac rhythm monitor Procedure code (CPT) selection complete Assessment & Plan Assessment & Plan (1) SVT (supraventricular tachycardia): Code(s): I47.1 - Supraventricular tachycardia Plan x Coding Level of Care Code Procedure Only Diagnoses SVT (supraventricular tachycardia) I47.1 CPT Codes Cardiac Device Check - Cardiac Device 16: [id number] Cardiac Interrogation, subcut cardiac rhythm monitor ([id number])
== END ==
PROVIDERS: PCP Internal Medicine; Visit Provider Internal Medicine
DX: I47.10 Supraventricular tachycardia, unspecified (principal)
CPT/HCPCS: 93298

== ENCOUNTER 2023-10-07 08:59 | Outpatient (AMB) | payer OTHER, SELFPAY ==
--- NOTE | 2023-10-07 09:09 | MHC.OFFVIS ---
Intake Vital Signs 10/07/23 09:10 Height 6 ft 1 in Weight 233 lb 11.04 oz BMI 30.8 BP 94/66 Blood Pressure Location Lt brachial Position Sitting Pulse 56 Intake Visit Reasons: 6 mth f/up Intake Note: 6 month follow up Director Of National Sales Required: No Accompanied by: Self / Same As Patient Allergies codeine Allergy (Verified 10/07/23 09:10) Nausea STATINS Allergy (Mild, Uncoded 10/07/23 09:10) HEART PALPITATIONS Medication List - Last Reconciled 10/07/23 by Juan Daniel Quijano MD CPAP (CPAP Machine/Device) As directed hydroxyzine HCl 10 mg PO Q8-10H PRN lorazepam 1 mg PO BEDTIME PRN warfarin 10 mg PO DAILY HPI HPI Comments History of Present Illness Details Abdoulaye returns for follow-up. Previously, patient of [facility], but would like to switch his cardiac care to us. It seems that he has had a long history of palpitations. It has been previously attributed to anxiety, as he does have significant anxiety as well. Subsequently, he underwent implantable loop recorder placement. This had shown SVT episodes and he underwent ablation of AVNRT in 2022. After that, his palpitations are significantly less. He does have a lot of anxiety at baseline. More recently, he was having lot of dizziness and fainting type episodes. Then sent for tilt-table testing and that showed orthostatic hypertension. Could be all related to weight loss as he has lost significant amount of weight recently. [facility] Medical History Orthostatic hypotension Hereditary deficiency of other clotting factors Depression GERD (gastroesophageal reflux disease) Anxiety Obesity Hyperlipidemia Sleep apnea Pulmonary embolism Factor V Leiden Surgical History History of cardiac radiofrequency ablation Hx of cardiac cath Hx of knee surgery Presence of cardiac and vascular implant and graft Hx of neck surgery Family History Mother Cancer Father Diabetes Hypertension Heart disease Heart attack Sister No problems noted. Brother No problems noted. Sister Factor 5 Leiden mutation, heterozygous Son Factor 5 Leiden mutation, heterozygous Daughter No problems noted. Daughter No problems noted. Daughter Multiple sclerosis Social History Are you a primary home health care case manager to a significant other at home: Yes Do you presently have visiting nurse or other home services: No Alcohol intake: never Patient Tobacco Use Status: Never used Tobacco Review of Systems Const Denies weakness ENT Denies dizziness Card Denies chest pain, Denies chest pain with activity, Denies syncope, Denies rapid heart rate, Denies pedal edema, Denies edema, Denies leg edema, Denies lightheadedness, Denies palpitations, Denies dyspnea, Denies dyspnea on exertion and Denies orthopnea Resp Denies cough, Denies dyspnea and Denies dyspnea on exertion GI Denies hematochezia and Denies change in stool character Musc Denies abnormal gait, Denies muscle cramps, Denies muscle weakness, Denies numbness, Denies radiating pain into limb and Denies tingling Neuro Denies abnormal gait, Denies dizziness, Denies syncope, Denies numbness, Denies tingling and Denies weakness Endo Denies palpitations Physical Exam Vital Signs: Last Vital Signs Pulse 56 10/07/23 09:10 BP 94/66 10/07/23 09:10 BMI result Body Mass Index 30.8 Const General: comfortable and no acute distress Orientation/consciousness: patient oriented x3 HEENT Other: Unremarkable Head: Yes normal to inspection Neck Neck: Yes normal visual inspection Chest Chest palpation & inspection: normal inspection of the chest Resp Auscultation: clear to auscultation bilaterally Cardio Palpation: normal PMI Heart sounds: S1 normal heart sound present, S2 normal heart sound present, no gallops, no murmurs and no rubs GI Palpation (GI): Soft to palpation Back/Spine/Pelvis Other: unremarkable Skin General skin exam: no rashes or lesions noted Neuro General: patient oriented x3 Extrem General: Yes normal to inspection Psych Mental Status: mental status grossly normal Assessment & Plan Assessment & Plan (1) SVT (supraventricular tachycardia): Code(s): I47.1 - Supraventricular tachycardia (2) Atherosclerotic cardiovascular disease: Code(s): I25.10 - Atherosclerotic heart disease of [place] coronary artery without angina pectoris (3) Orthostatic hypotension: Code(s): I95.1 - Orthostatic hypotension Plan Cardiac studies reviewed. Echocardiogram with LVEF of 61%. No wall motion abnormalities. Normal diastolic function. Otherwise unremarkable. Coronary CTA shows only mild coronary disease. Nothing hemodynamically significant. Tilt-table study positive orthostatic hypotension. Status post AVNRT ablation. Overall, he is generally stable. Orthostatic hypotension could be because of significant weight loss as he has lost almost 50+ lb. Hence advised adequate fluid/liberal salt intake on regular basis. He states he is already feeling better from that end. If necessary, we can consider midodrine in the future. With regard to the implantable loop recorder, he would still like to keep it and get regularly monitored. Otherwise, he already has baseline bradycardia and hence will not use any beta-blockers or calcium channel blockers. Hopefully there are no more AVNRT events. Because of anxiety, he has not started statins. Recheck lipids as he has lost lot of weight. Then we can reconsider. Total time spent including review of data, counseling, documentation, coordination of care-31 minutes. Coding Level of Care Code Est Pt Level 4 (08271) Diagnoses SVT (supraventricular tachycardia) I47.1 Atherosclerotic cardiovascular disease I25.10 Orthostatic hypotension I95.1
[2023-10-07 09:10] VITALS: BP 94/66; PULSE 56; BMI 30.8
== END 2023-10-07 09:27 | disposition home or self-care (01) ==
PROVIDERS: PCP Internal Medicine; Visit Provider Internal Medicine
DX: I47.10 Supraventricular tachycardia, unspecified (principal); I25.10 Atherosclerotic heart disease of native coronary artery without angina pectoris; I95.1 Orthostatic hypotension
CPT/HCPCS: 99214

== ENCOUNTER → 2023-10-07 08:59 | Outpatient (BNVA) | payer OTHER, SELFPAY | PROVIDERS: PCP Internal Medicine; Visit Provider Internal Medicine | DX: I47.10 Supraventricular tachycardia, unspecified (principal); I25.10 Atherosclerotic heart disease of native coronary artery without angina pectoris; I95.1 Orthostatic hypotension | CPT/HCPCS: 99212 ==

== ENCOUNTER → 2023-10-15 23:59 | Outpatient (BNV) | payer OTHER, SELFPAY ==
--- NOTE | 2023-10-19 11:56 | A.OFFVIS_ITS ---
Intake Intake Visit Reasons: Remote ILR Check- [employer] Allergies codeine Allergy (Verified 10/07/23 09:10) Nausea STATINS Allergy (Mild, Uncoded 10/07/23 09:10) HEART PALPITATIONS PFSH Medical History Orthostatic hypotension Hereditary deficiency of other clotting factors Depression GERD (gastroesophageal reflux disease) Anxiety Obesity Hyperlipidemia Sleep apnea Pulmonary embolism Factor V Leiden Surgical History History of cardiac radiofrequency ablation Hx of cardiac cath Hx of knee surgery Presence of cardiac and vascular implant and graft Hx of neck surgery Family History Mother Cancer Father Diabetes Hypertension Heart disease Heart attack Sister No problems noted. Brother No problems noted. Sister Factor 5 Leiden mutation, heterozygous Son Factor 5 Leiden mutation, heterozygous Daughter No problems noted. Daughter No problems noted. Daughter Multiple sclerosis Social History Are you a primary health care / medical job titles to a significant other at home: Yes Do you presently have visiting nurse or other home services: No Alcohol intake: never Patient Tobacco Use Status: Never used Tobacco Office Procedures Cardiac Device Check Cardiac Device Check Details: Date of service 10/15/2023; in the current monitoring period, there is no significant finding of tachyarrhythmia or bradycardia or pauses. [id number] Cardiac Interrogation, subcut cardiac rhythm monitor Procedure code (CPT) selection complete Assessment & Plan Assessment & Plan (1) SVT (supraventricular tachycardia): Code(s): I47.1 - Supraventricular tachycardia Plan x Coding Level of Care Code Procedure Only Diagnoses SVT (supraventricular tachycardia) I47.1 CPT Codes Cardiac Device Check - Cardiac Device 16: [id number] Cardiac Interrogation, subcut cardiac rhythm monitor ([id number])
== END ==
PROVIDERS: PCP Internal Medicine; Visit Provider Internal Medicine
DX: I47.10 Supraventricular tachycardia, unspecified (principal); Z95.818 Presence of other cardiac implants and grafts
CPT/HCPCS: 93298

== ENCOUNTER → 2023-11-19 23:59 | Outpatient (BNV) | payer OTHER, SELFPAY ==
--- NOTE | 2023-11-22 19:51 | A.OFFVIS_ITS ---
Intake Intake Visit Reasons: Remote ILR Check- [employer] Allergies codeine Allergy (Verified 10/07/23 09:10) Nausea STATINS Allergy (Mild, Uncoded 10/07/23 09:10) HEART PALPITATIONS PFSH Medical History Orthostatic hypotension Hereditary deficiency of other clotting factors Depression GERD (gastroesophageal reflux disease) Anxiety Obesity Hyperlipidemia Sleep apnea Pulmonary embolism Factor V Leiden Surgical History History of cardiac radiofrequency ablation Hx of cardiac cath Hx of knee surgery Presence of cardiac and vascular implant and graft Hx of neck surgery Family History Mother Cancer Father Diabetes Hypertension Heart disease Heart attack Sister No problems noted. Brother No problems noted. Sister Factor 5 Leiden mutation, heterozygous Son Factor 5 Leiden mutation, heterozygous Daughter No problems noted. Daughter No problems noted. Daughter Multiple sclerosis Social History Are you a primary career information specialist to a significant other at home: Yes Do you presently have visiting nurse or other home services: No Alcohol intake: never Patient Tobacco Use Status: Never used Tobacco Office Procedures Cardiac Device Check Cardiac Device Check Details: Date of service 11/19/2023; in the current monitoring period, there is no evidence of atrial fibrillation. [id number] Cardiac Interrogation, subcut cardiac rhythm monitor Procedure code (CPT) selection complete Assessment & Plan Assessment & Plan (1) SVT (supraventricular tachycardia): Code(s): I47.1 - Supraventricular tachycardia Plan x Coding Level of Care Code Procedure Only Diagnoses SVT (supraventricular tachycardia) I47.1 CPT Codes Cardiac Device Check - Cardiac Device 16: [id number] Cardiac Interrogation, subcut cardiac rhythm monitor ([id number])
== END ==
PROVIDERS: PCP Internal Medicine; Visit Provider Internal Medicine
DX: I47.10 Supraventricular tachycardia, unspecified (principal); Z95.818 Presence of other cardiac implants and grafts
CPT/HCPCS: 93298

== ENCOUNTER → 2023-12-24 23:59 | Outpatient (BNV) | payer OTHER, SELFPAY ==
--- NOTE | 2023-12-28 12:18 | A.OFFVIS_ITS ---
Intake Intake Visit Reasons: Remote ILR Check- [employer] Allergies codeine Allergy (Verified 10/07/23 09:10) Nausea STATINS Allergy (Mild, Uncoded 10/07/23 09:10) HEART PALPITATIONS PFSH Medical History Orthostatic hypotension Hereditary deficiency of other clotting factors Depression GERD (gastroesophageal reflux disease) Anxiety Obesity Hyperlipidemia Sleep apnea Pulmonary embolism Factor V Leiden Surgical History History of cardiac radiofrequency ablation Hx of cardiac cath Hx of knee surgery Presence of cardiac and vascular implant and graft Hx of neck surgery Family History Mother Cancer Father Diabetes Hypertension Heart disease Heart attack Sister No problems noted. Brother No problems noted. Sister Factor 5 Leiden mutation, heterozygous Son Factor 5 Leiden mutation, heterozygous Daughter No problems noted. Daughter No problems noted. Daughter Multiple sclerosis Social History Are you a primary healthcare science specialist to a significant other at home: Yes Do you presently have visiting nurse or other home services: No Alcohol intake: never Patient Tobacco Use Status: Never used Tobacco Office Procedures Cardiac Device Check Cardiac Device Check Details: Date of service 12/24/2023; in the current monitoring period, there are no significant arrhythmias. [id number] Cardiac Interrogation, subcut cardiac rhythm monitor Procedure code (CPT) selection complete Assessment & Plan Assessment & Plan (1) SVT (supraventricular tachycardia): Code(s): I47.1 - Supraventricular tachycardia Plan x Coding Level of Care Code Procedure Only Diagnoses SVT (supraventricular tachycardia) I47.1 CPT Codes Cardiac Device Check - Cardiac Device 16: [id number] Cardiac Interrogation, subcut cardiac rhythm monitor ([id number])
== END ==
PROVIDERS: PCP Internal Medicine; Visit Provider Internal Medicine
DX: I47.10 Supraventricular tachycardia, unspecified (principal); Z95.818 Presence of other cardiac implants and grafts
CPT/HCPCS: 93298

== ENCOUNTER → 2024-01-28 23:59 | Outpatient (BNV) | payer OTHER, SELFPAY ==
--- NOTE | 2024-02-22 19:52 | A.OFFVIS_ITS ---
Intake Visit Reasons: [employer]mote ILR- [employer] Allergies codeine Allergy (Verified 10/07/23 09:10) Nausea STATINS Allergy (Mild, Uncoded 10/07/23 09:10) HEART PALPITATIONS PFSH Medical History Orthostatic hypotension Hereditary deficiency of other clotting factors Depression GERD (gastroesophageal reflux disease) Anxiety Obesity Hyperlipidemia Sleep apnea Pulmonary embolism Factor V Leiden Surgical History History of cardiac radiofrequency ablation Hx of cardiac cath Hx of knee surgery Presence of cardiac and vascular implant and graft Hx of neck surgery Family History Mother Cancer Father Diabetes Hypertension Heart disease Heart attack Sister No problems noted. Brother No problems noted. Sister Factor 5 Leiden mutation, heterozygous Son Factor 5 Leiden mutation, heterozygous Daughter No problems noted. Daughter No problems noted. Daughter Multiple sclerosis Social History Are you a primary personal care worker to a significant other at home: Yes Do you presently have visiting nurse or other home services: No Alcohol intake: never Patient Tobacco Use Status: Never used Tobacco Office Procedures Cardiac Device Check Cardiac Device Check Details: Date of service 01/28/2024; in the current monitoring period, there is no evidence of atrial fibrillation. No significant pauses. [id number] Cardiac Interrogation, subcut cardiac rhythm monitor Procedure code (CPT) selection complete Assessment & Plan Assessment & Plan (1) SVT (supraventricular tachycardia): Code(s): I47.1 - Supraventricular tachycardia Category: Medical Plan x Coding Level of Care Code Procedure Only Diagnoses SVT (supraventricular tachycardia) I47.1 CPT Codes Cardiac Device Check - Cardiac Device 16: [id number] Cardiac Interrogation, subcut cardiac rhythm monitor ([id number])
== END ==
PROVIDERS: PCP Internal Medicine; Visit Provider Internal Medicine
DX: I47.10 Supraventricular tachycardia, unspecified (principal); Z95.818 Presence of other cardiac implants and grafts
CPT/HCPCS: 93298

== ENCOUNTER → 2024-03-03 23:59 | Outpatient (BNV) | payer OTHER, SELFPAY ==
--- NOTE | 2024-04-02 11:02 | A.OFFVIS_ITS ---
Intake Visit Reasons: Remote ILR Check- [employer] Allergies codeine Allergy (Verified 10/07/23 09:10) Nausea STATINS Allergy (Mild, Uncoded 10/07/23 09:10) HEART PALPITATIONS PFSH Medical History Orthostatic hypotension Hereditary deficiency of other clotting factors Depression GERD (gastroesophageal reflux disease) Anxiety Obesity Hyperlipidemia Sleep apnea Pulmonary embolism Factor V Leiden Surgical History History of cardiac radiofrequency ablation Hx of cardiac cath Hx of knee surgery Presence of cardiac and vascular implant and graft Hx of neck surgery Family History Mother Cancer Father Diabetes Hypertension Heart disease Heart attack Sister No problems noted. Brother No problems noted. Sister Factor 5 Leiden mutation, heterozygous Son Factor 5 Leiden mutation, heterozygous Daughter No problems noted. Daughter No problems noted. Daughter Multiple sclerosis Social History Are you a primary hospice patient care secretary to a significant other at home: Yes Do you presently have visiting nurse or other home services: No Alcohol intake: never Patient Tobacco Use Status: Never used Tobacco Office Procedures Cardiac Device Check Cardiac Device Check Details: Date of service 03/03/2024; in the current monitoring period, there is no evidence of atrial fibrillation or other significant findings. [id number] Cardiac Interrogation, subcut cardiac rhythm monitor Procedure code (CPT) selection complete Assessment & Plan Assessment & Plan (1) SVT (supraventricular tachycardia): Code(s): I47.1 - Supraventricular tachycardia Category: Medical Plan x Coding Level of Care Code Procedure Only Diagnoses SVT (supraventricular tachycardia) I47.1 CPT Codes Cardiac Device Check - Cardiac Device 16: [id number] Cardiac Interrogation, subcut cardiac rhythm monitor ([id number])
== END ==
PROVIDERS: PCP Internal Medicine; Visit Provider Internal Medicine
DX: I47.10 Supraventricular tachycardia, unspecified (principal); Z95.818 Presence of other cardiac implants and grafts
CPT/HCPCS: 93298

== ENCOUNTER 2024-04-06 08:39 | Outpatient (AMB) | payer OTHER, SELFPAY ==
[2024-04-06 08:44] VITALS: BP 90/58; PULSE 51; BMI 30.5
--- NOTE | 2024-04-06 08:44 | MHC.OFFVIS ---
Vital Signs 04/06/24 08:44 Height 6 ft 1 in Weight 231 lb 7.766 oz BMI 30.5 BP 90/58 L Blood Pressure Location Lt brachial Position Sitting Pulse 51 Intake Visit Reasons: 6 month follow-up [employer] Preflight Required: No Accompanied by: Self / Same As Patient Allergies codeine Allergy (Verified 10/07/23 09:10) Nausea STATINS Allergy (Mild, Uncoded 10/07/23 09:10) HEART PALPITATIONS Medication List - Last Reconciled 04/06/24 by Juan Daniel Quijano MD CPAP (CPAP Machine/Device) As directed hydroxyzine HCl 10 mg PO Q8-10H PRN lorazepam 1 mg PO BEDTIME PRN warfarin 10 mg PO DAILY HPI Comments Details: Abdoulaye returns for follow-up. History of SVT episodes following which, he had AVNRT ablation 2022. Otherwise, has significant anxiety at baseline. He was having other symptoms like dizziness/presyncope. Tilt-table testing showed orthostatic hypotension. He did lose a lot of weight and probably the etiology. That seems to have stabilized. He does get some random chest pains but that does not sound cardiac in nature. Coronary CTA does not show any significant CAD. [facility] Medical History Orthostatic hypotension Hereditary deficiency of other clotting factors Depression GERD (gastroesophageal reflux disease) Anxiety Obesity Hyperlipidemia Sleep apnea Pulmonary embolism Factor V Leiden Surgical History History of cardiac radiofrequency ablation Hx of cardiac cath Hx of knee surgery Presence of cardiac and vascular implant and graft Hx of neck surgery Family History Mother Cancer Father Diabetes Hypertension Heart disease Heart attack Sister No problems noted. Brother No problems noted. Sister Factor 5 Leiden mutation, heterozygous Son Factor 5 Leiden mutation, heterozygous Daughter No problems noted. Daughter No problems noted. Daughter Multiple sclerosis Social History Are you a primary foster care therapist to a significant other at home: Yes Do you presently have visiting nurse or other home services: No Alcohol intake: never Patient Tobacco Use Status: Never used Tobacco Review of Systems Const Denies chills, Denies fatigue, Denies fever(s), Denies weight gain and Denies weight loss ENT Denies dizziness Card Denies chest pain, Denies leg edema, Denies lightheadedness, Denies palpitations, Denies dyspnea on exertion, Denies orthopnea and Denies other Resp Denies cough and Denies dyspnea on exertion GI Denies hematochezia and Denies change in stool character Musc Denies abnormal gait, Denies muscle weakness, Denies numbness, Denies radiating pain into limb and Denies tingling Neuro Denies abnormal gait, Denies dizziness, Denies numbness and Denies tingling Endo Denies fatigue and Denies palpitations Physical Exam Vital Signs: Last Vital Signs Pulse 51 04/06/24 08:44 BP 90/58 L 04/06/24 08:44 BMI result Body Mass Index 30.5 Const General: comfortable and no acute distress Orientation/consciousness: patient oriented x3 HEENT Other: Unremarkable Head: Yes normal to inspection Neck Neck: Yes normal visual inspection Chest Chest palpation & inspection: normal inspection of the chest Resp Auscultation: clear to auscultation bilaterally Cardio Palpation: normal PMI Heart sounds: S1 normal heart sound present, S2 normal heart sound present, no gallops, no murmurs and no rubs GI Palpation (GI): Soft to palpation Back/Spine/Pelvis Other: unremarkable Skin General skin exam: no rashes or lesions noted Neuro General: patient oriented x3 Extrem General: Yes normal to inspection Psych Mental Status: mental status grossly normal Office Procedures EKG Details: EKG with sinus bradycardia at 51/Min; no significant ST-T changes; [place]. [id number], Complete Assessment & Plan Assessment & Plan (1) SVT (supraventricular tachycardia): Code(s): I47.1 - Supraventricular tachycardia Category: Medical (2) Sinus bradycardia: Code(s): R00.1 - Bradycardia, unspecified Category: Medical (3) Atherosclerotic cardiovascular disease: Code(s): I25.10 - Atherosclerotic heart disease of [place] coronary artery without angina pectoris Category: Medical (4) Orthostatic hypotension: Code(s): I95.1 - Orthostatic hypotension Category: Medical Plan Cardiac studies reviewed. Echocardiogram with LVEF of 61%. No wall motion abnormalities. Normal diastolic function. Otherwise unremarkable. Coronary CTA shows only mild coronary disease. Nothing hemodynamically significant. Tilt-table study positive orthostatic hypotension. Status post AVNRT ablation. With regard to the AVNRT, seems resolved at this time. With regard to the orthostatic hypotension -could be because of weight loss. Liberalize fluid/salt intake and he states he is actually feeling better. With regard to the sinus bradycardia, no specific management. He has not on any rate slowing agents. With regard to mild CAD, check lipids. Hopefully with weight loss it has improved. With regard to the ILR, he would like to still keep it. When he is ready, we can remove it. Coding Level of Care Code Est Pt Level 4 (12811) Diagnoses SVT (supraventricular tachycardia) I47.1 Sinus bradycardia R00.1 Atherosclerotic cardiovascular disease I25.10 Orthostatic hypotension I95.1 CPT Codes EKG - CPT: 70082-Zqoztpriplitrsymg, Complete ([id number])
== END 2024-04-06 09:10 | disposition home or self-care (01) ==
PROVIDERS: PCP Internal Medicine; Visit Provider Internal Medicine
DX: I47.10 Supraventricular tachycardia, unspecified (principal); R00.1 Bradycardia, unspecified; I25.10 Atherosclerotic heart disease of native coronary artery without angina pectoris; I95.1 Orthostatic hypotension
CPT/HCPCS: 93010; 99214

== ENCOUNTER → 2024-04-06 08:39 | Outpatient (BNVA) | payer OTHER, SELFPAY | PROVIDERS: PCP Internal Medicine; Visit Provider Internal Medicine | DX: I47.10 Supraventricular tachycardia, unspecified (principal); I25.10 Atherosclerotic heart disease of native coronary artery without angina pectoris; I95.1 Orthostatic hypotension; R00.1 Bradycardia, unspecified | CPT/HCPCS: 93005; 99212 ==

== ENCOUNTER → 2024-05-12 23:59 | Outpatient (BNV) | payer OTHER, SELFPAY ==
--- NOTE | 2024-05-23 09:08 | MHC.OFFVIS ---
Intake Visit Reasons: Remote ILR check- [employer] Allergies codeine Allergy (Verified 10/07/23 09:10) Nausea STATINS Allergy (Mild, Uncoded 10/07/23 09:10) HEART PALPITATIONS PFSH Medical History Orthostatic hypotension Hereditary deficiency of other clotting factors Depression GERD (gastroesophageal reflux disease) Anxiety Obesity Hyperlipidemia Sleep apnea Pulmonary embolism Factor V Leiden Surgical History History of cardiac radiofrequency ablation Hx of cardiac cath Hx of knee surgery Presence of cardiac and vascular implant and graft Hx of neck surgery Family History Mother Cancer Father Diabetes Hypertension Heart disease Heart attack Sister No problems noted. Brother No problems noted. Sister Factor 5 Leiden mutation, heterozygous Son Factor 5 Leiden mutation, heterozygous Daughter No problems noted. Daughter No problems noted. Daughter Multiple sclerosis Social History Are you a primary regular senior care provider to a significant other at home: Yes Do you presently have visiting nurse or other home services: No Alcohol intake: never Patient Tobacco Use Status: Never used Tobacco Office Procedures Cardiac Device Check Cardiac Device Check Details: Date of service 05/12/2024; in the current monitoring period, there is no evidence of atrial fibrillation. [id number] Cardiac Interrogation, subcut cardiac rhythm monitor Procedure code (CPT) selection complete Assessment & Plan Assessment & Plan (1) SVT (supraventricular tachycardia): Code(s): I47.1 - Supraventricular tachycardia Category: Medical Plan x Coding Level of Care Code Procedure Only Diagnoses SVT (supraventricular tachycardia) I47.1 CPT Codes Cardiac Device Check - Cardiac Device 16: [id number] Cardiac Interrogation, subcut cardiac rhythm monitor ([id number])
== END ==
PROVIDERS: PCP Internal Medicine; Visit Provider Internal Medicine
DX: I47.10 Supraventricular tachycardia, unspecified (principal); Z95.818 Presence of other cardiac implants and grafts
CPT/HCPCS: 93298

== ENCOUNTER → 2024-06-16 23:59 | Outpatient (BNV) | payer OTHER, SELFPAY ==
--- NOTE | 2024-06-25 13:05 | MHC.OFFVIS ---
Intake Visit Reasons: Remote ILR- [employer] Allergies codeine Allergy (Verified 10/07/23 09:10) Nausea STATINS Allergy (Mild, Uncoded 10/07/23 09:10) HEART PALPITATIONS PFSH Medical History Orthostatic hypotension Hereditary deficiency of other clotting factors Depression GERD (gastroesophageal reflux disease) Anxiety Obesity Hyperlipidemia Sleep apnea Pulmonary embolism Factor V Leiden Surgical History History of cardiac radiofrequency ablation Hx of cardiac cath Hx of knee surgery Presence of cardiac and vascular implant and graft Hx of neck surgery Family History Mother Cancer Father Diabetes Hypertension Heart disease Heart attack Sister No problems noted. Brother No problems noted. Sister Factor 5 Leiden mutation, heterozygous Son Factor 5 Leiden mutation, heterozygous Daughter No problems noted. Daughter No problems noted. Daughter Multiple sclerosis Social History Are you a primary urgent care physician to a significant other at home: Yes Do you presently have visiting nurse or other home services: No Alcohol intake: never Patient Tobacco Use Status: Never used Tobacco Office Procedures Cardiac Device Check Cardiac Device Check Details: Date of service 06/19/2024; in the current monitoring period, there is no evidence of atrial fibrillation. During patient activation, sinus rhythm. [id number] Cardiac Interrogation, subcut cardiac rhythm monitor Procedure code (CPT) selection complete Assessment & Plan Assessment & Plan (1) Implantable loop recorder present: Code(s): Z95.818 - Presence of other cardiac implants and grafts Category: Medical (2) SVT (supraventricular tachycardia): Code(s): I47.1 - Supraventricular tachycardia Category: Medical Plan x Coding Level of Care Code Procedure Only Diagnoses Implantable loop recorder present Z95.818 SVT (supraventricular tachycardia) I47.1 CPT Codes Cardiac Device Check - Cardiac Device 16: [id number] Cardiac Interrogation, subcut cardiac rhythm monitor ([id number])
== END ==
PROVIDERS: PCP Internal Medicine; Visit Provider Internal Medicine
DX: I47.10 Supraventricular tachycardia, unspecified (principal); Z95.818 Presence of other cardiac implants and grafts
CPT/HCPCS: 93298

== ENCOUNTER → 2024-07-21 23:59 | Outpatient (BNV) | payer OTHER, SELFPAY ==
--- NOTE | 2024-08-06 10:33 | A.OFFVIS_ITS ---
Intake Visit Reasons: Remote ILR- [employer] Allergies codeine Allergy (Verified 10/07/23 09:10) Nausea STATINS Allergy (Mild, Uncoded 10/07/23 09:10) HEART PALPITATIONS PFSH Medical History Orthostatic hypotension Hereditary deficiency of other clotting factors Depression GERD (gastroesophageal reflux disease) Anxiety Obesity Hyperlipidemia Sleep apnea Pulmonary embolism Factor V Leiden Surgical History History of cardiac radiofrequency ablation Hx of cardiac cath Hx of knee surgery Presence of cardiac and vascular implant and graft Hx of neck surgery Family History Mother Cancer Father Diabetes Hypertension Heart disease Heart attack Sister No problems noted. Brother No problems noted. Sister Factor 5 Leiden mutation, heterozygous Son Factor 5 Leiden mutation, heterozygous Daughter No problems noted. Daughter No problems noted. Daughter Multiple sclerosis Social History Are you a primary customer care assistant to a significant other at home: Yes Do you presently have visiting nurse or other home services: No Alcohol intake: never Patient Tobacco Use Status: Never used Tobacco Office Procedures Cardiac Device Check Cardiac Device Check Details: Date of service 07/21/2024; in the current monitoring period, there is no evidence of atrial fibrillation. 58054-Lvqcgb Cardiac Interrogation, subcut cardiac rhythm monitor Procedure code (CPT) selection complete Assessment & Plan Assessment & Plan (1) Implantable loop recorder present: Code(s): Z95.818 - Presence of other cardiac implants and grafts Category: Medical (2) SVT (supraventricular tachycardia): Code(s): I47.1 - Supraventricular tachycardia Category: Medical Plan x Coding Level of Care Code Procedure Only Diagnoses Implantable loop recorder present Z95.818 SVT (supraventricular tachycardia) I47.1 CPT Codes Cardiac Device Check - Cardiac Device 16: [id number] Cardiac Interrogation, subcut cardiac rhythm monitor ([id number])
== END ==
PROVIDERS: PCP Internal Medicine; Visit Provider Internal Medicine
DX: I47.10 Supraventricular tachycardia, unspecified (principal); Z95.818 Presence of other cardiac implants and grafts
CPT/HCPCS: 93298

== ENCOUNTER → 2024-08-25 23:59 | Outpatient (BNV) | payer OTHER, SELFPAY ==
--- NOTE | 2024-09-05 13:19 | MHC.OFFVIS ---
Intake Visit Reasons: Remote ILR check- [employer] Allergies codeine Allergy (Verified 10/07/23 09:10) Nausea STATINS Allergy (Mild, Uncoded 10/07/23 09:10) HEART PALPITATIONS PFSH Medical History Orthostatic hypotension Hereditary deficiency of other clotting factors Depression GERD (gastroesophageal reflux disease) Anxiety Obesity Hyperlipidemia Sleep apnea Pulmonary embolism Factor V Leiden Surgical History History of cardiac radiofrequency ablation Hx of cardiac cath Hx of knee surgery Presence of cardiac and vascular implant and graft Hx of neck surgery Family History Mother Cancer Father Diabetes Hypertension Heart disease Heart attack Sister No problems noted. Brother No problems noted. Sister Factor 5 Leiden mutation, heterozygous Son Factor 5 Leiden mutation, heterozygous Daughter No problems noted. Daughter No problems noted. Daughter Multiple sclerosis Social History Are you a primary pharmacy customer care specialist to a significant other at home: Yes Do you presently have visiting nurse or other home services: No Alcohol intake: never Patient Tobacco Use Status: Never used Tobacco Office Procedures Cardiac Device Check Cardiac Device Check Details: Date of service 08/25/2024; in the current monitoring period, there is no evidence of atrial fibrillation. 52081-Xbfouk Cardiac Interrogation, subcut cardiac rhythm monitor Procedure code (CPT) selection complete Assessment & Plan Assessment & Plan (1) Implantable loop recorder present: Code(s): Z95.818 - Presence of other cardiac implants and grafts Category: Medical (2) SVT (supraventricular tachycardia): Code(s): I47.1 - Supraventricular tachycardia Category: Medical Plan x Coding Level of Care Code Procedure Only Diagnoses Implantable loop recorder present Z95.818 SVT (supraventricular tachycardia) I47.1 CPT Codes Cardiac Device Check - Cardiac Device 16: 44565-Iuneyx Cardiac Interrogation, subcut cardiac rhythm monitor ([id number])
== END ==
PROVIDERS: PCP Internal Medicine; Visit Provider Internal Medicine
DX: I47.10 Supraventricular tachycardia, unspecified (principal); Z95.818 Presence of other cardiac implants and grafts
CPT/HCPCS: 93298

== ENCOUNTER → 2024-09-29 23:59 | Outpatient (BNV) | payer OTHER, SELFPAY ==
--- NOTE | 2024-10-08 14:37 | MHC.OFFVIS ---
Intake Visit Reasons: Remote ILR check- [employer] Allergies codeine Allergy (Verified 10/07/23 09:10) Nausea STATINS Allergy (Mild, Uncoded 10/07/23 09:10) HEART PALPITATIONS PFSH Medical History Orthostatic hypotension Hereditary deficiency of other clotting factors Depression GERD (gastroesophageal reflux disease) Anxiety Obesity Hyperlipidemia Sleep apnea Pulmonary embolism Factor V Leiden Surgical History History of cardiac radiofrequency ablation Hx of cardiac cath Hx of knee surgery Presence of cardiac and vascular implant and graft Hx of neck surgery Family History Mother Cancer Father Diabetes Hypertension Heart disease Heart attack Sister No problems noted. Brother No problems noted. Sister Factor 5 Leiden mutation, heterozygous Son Factor 5 Leiden mutation, heterozygous Daughter No problems noted. Daughter No problems noted. Daughter Multiple sclerosis Social History Are you a primary healthcare technician to a significant other at home: Yes Do you presently have visiting nurse or other home services: No Alcohol intake: never Patient Tobacco Use Status: Never used Tobacco Office Procedures Cardiac Device Check Cardiac Device Check Details: Date of service 09/29/2024; in the current monitoring period, there is no clear arrhythmias. [id number]-Fvtrti Cardiac Interrogation, subcut cardiac rhythm monitor Procedure code (CPT) selection complete Assessment & Plan Assessment & Plan (1) Implantable loop recorder present: Code(s): Z95.818 - Presence of other cardiac implants and grafts Category: Medical (2) SVT (supraventricular tachycardia): Code(s): I47.1 - Supraventricular tachycardia Category: Medical Plan x Coding Level of Care Code Procedure Only Diagnoses Implantable loop recorder present Z95.818 SVT (supraventricular tachycardia) I47.1 CPT Codes Cardiac Device Check - Cardiac Device 16: [id number] Cardiac Interrogation, subcut cardiac rhythm monitor ([id number])
== END ==
PROVIDERS: PCP Internal Medicine; Visit Provider Internal Medicine
DX: I47.10 Supraventricular tachycardia, unspecified (principal); Z95.818 Presence of other cardiac implants and grafts
CPT/HCPCS: 93298

== ENCOUNTER → 2024-11-03 23:59 | Outpatient (BNV) | payer OTHER, SELFPAY ==
--- NOTE | 2024-11-06 09:22 | A.OFFVIS_ITS ---
Intake Visit Reasons: Remote ILR check- [employer] Allergies codeine Allergy (Verified 10/07/23 09:10) Nausea STATINS Allergy (Mild, Uncoded 10/07/23 09:10) HEART PALPITATIONS PFSH Medical History Orthostatic hypotension Hereditary deficiency of other clotting factors Depression GERD (gastroesophageal reflux disease) Anxiety Obesity Hyperlipidemia Sleep apnea Pulmonary embolism Factor V Leiden Surgical History History of cardiac radiofrequency ablation Hx of cardiac cath Hx of knee surgery Presence of cardiac and vascular implant and graft Hx of neck surgery Family History Mother Cancer Father Diabetes Hypertension Heart disease Heart attack Sister No problems noted. Brother No problems noted. Sister Factor 5 Leiden mutation, heterozygous Son Factor 5 Leiden mutation, heterozygous Daughter No problems noted. Daughter No problems noted. Daughter Multiple sclerosis Social History Are you a primary career technical education instructor to a significant other at home: Yes Do you presently have visiting nurse or other home services: No Alcohol intake: never Patient Tobacco Use Status: Never used Tobacco Office Procedures Cardiac Device Check Cardiac Device Check Details: Date of service 11/03/2024; battery at [employer] since 09/28/2024. Otherwise, no new observations. 55070-Jryjdn Cardiac Interrogation, subcut cardiac rhythm monitor Procedure code (CPT) selection complete Assessment & Plan Assessment & Plan (1) Implantable loop recorder present: Code(s): Z95.818 - Presence of other cardiac implants and grafts Category: Medical (2) SVT (supraventricular tachycardia): Code(s): I47.1 - Supraventricular tachycardia Category: Medical Plan x Coding Level of Care Code Procedure Only Diagnoses Implantable loop recorder present Z95.818 SVT (supraventricular tachycardia) I47.1 CPT Codes Cardiac Device Check - Cardiac Device 16: [id number] Cardiac Interrogation, subcut cardiac rhythm monitor ([id number])
== END ==
PROVIDERS: PCP Internal Medicine; Visit Provider Internal Medicine
DX: I47.10 Supraventricular tachycardia, unspecified (principal); Z95.818 Presence of other cardiac implants and grafts
CPT/HCPCS: 93298

== ENCOUNTER 2024-11-21 14:20 | Outpatient (AMB) | payer OTHER, SELFPAY ==
--- NOTE | 2024-11-21 14:24 | MHC.OFFVIS ---
Vital Signs 11/21/24 14:26 Height 6 ft 1 in Weight 238 lb 15.697 oz BMI 31.5 BP 100/62 Blood Pressure Location Rt brachial Position Sitting Pulse 49 L Pulse Source Monitor Intake Visit Reasons: 6m follow up Loss Prevention Auditor Required: No Accompanied by: Spouse Allergies codeine Allergy (Verified 10/07/23 09:10) Nausea STATINS Allergy (Mild, Uncoded 10/07/23 09:10) HEART PALPITATIONS Medication List - Last Reconciled 11/21/24 by Juan Daniel Quijano MD hydroxyzine HCl 10 mg PO Q8-10H PRN lorazepam 1 mg PO BEDTIME PRN warfarin 10 mg PO DAILY HPI Comments Details: Abdoulaye returns for follow-up. History of SVT episodes following which, he had AVNRT ablation 2022. Otherwise, has significant anxiety at baseline. He was having other symptoms like dizziness/presyncope. Tilt-table testing showed orthostatic hypotension. He did lose a lot of weight and that might have probably the etiology for low blood pressure. He seems that he has gained some weight back and the blood pressure seems to have stabilized but still on the lower side. Random chest pains that is most likely noncardiac, could be musculoskeletal. Coronary CTA does not show any significant CAD. Otherwise, no new concerns. [facility] Medical History (Updated 11/21/24 @ 14:53 by Juan Daniel Quijano MD) Orthostatic hypotension Hereditary deficiency of other clotting factors Depression GERD (gastroesophageal reflux disease) Anxiety Obesity Hyperlipidemia Sleep apnea Pulmonary embolism Factor V Leiden Surgical History History of cardiac radiofrequency ablation Hx of cardiac cath Hx of knee surgery Presence of cardiac and vascular implant and graft Hx of neck surgery Family History Mother Cancer Father Diabetes Hypertension Heart disease Heart attack Sister No problems noted. Brother No problems noted. Sister Factor 5 Leiden mutation, heterozygous Son Factor 5 Leiden mutation, heterozygous Daughter No problems noted. Daughter No problems noted. Daughter Multiple sclerosis Social History Are you a primary career information specialist to a significant other at home: Yes Do you presently have visiting nurse or other home services: No Alcohol intake: never Patient Tobacco Use Status: Never used Tobacco Review of Systems Const Denies chills, Denies fatigue, Denies fever(s), Denies frequent falls, Denies weakness, Denies weight gain and Denies weight loss ENT Denies dizziness Card Reports chest pain, Denies leg edema, Denies lightheadedness, Denies palpitations, Reports dyspnea and Reports dyspnea on exertion Resp Denies cough, Reports dyspnea and Reports dyspnea on exertion GI Denies hematochezia Musc Denies abnormal gait, Denies muscle weakness, Denies numbness, Denies radiating pain into limb and Denies tingling Neuro Denies abnormal gait, Denies dizziness, Denies frequent falls, Denies numbness, Denies tingling and Denies weakness Endo Denies fatigue and Denies palpitations Physical Exam Vital Signs: Last Vital Signs Pulse 49 L 11/21/24 14:26 BP 100/62 11/21/24 14:26 BMI result Body Mass Index 31.5 Const General: comfortable and no acute distress Orientation/consciousness: patient oriented x3 HEENT Other: Unremarkable Head: Yes normal to inspection Neck Neck: Yes normal visual inspection Chest Chest palpation & inspection: normal inspection of the chest Resp Auscultation: clear to auscultation bilaterally Cardio Palpation: normal PMI Heart sounds: S1 normal heart sound present, S2 normal heart sound present, no gallops, no murmurs and no rubs GI Palpation (GI): Soft to palpation Back/Spine/Pelvis Other: unremarkable Skin General skin exam: no rashes or lesions noted Neuro General: patient oriented x3 Extrem General: Yes normal to inspection Psych Mental Status: mental status grossly normal Office Procedures EKG Details: EKG shows sinus bradycardia at 49/Min; no significant ST-T changes; [place] [address]-[id number], Complete Assessment & Plan Assessment & Plan (1) SVT (supraventricular tachycardia): Code(s): I47.1 - Supraventricular tachycardia Category: Medical (2) Sinus bradycardia: Code(s): R00.1 - Bradycardia, unspecified Category: Medical (3) Atherosclerotic cardiovascular disease: Code(s): I25.10 - Atherosclerotic heart disease of galena coronary artery without angina pectoris Category: Medical (4) Orthostatic hypotension: Code(s): I95.1 - Orthostatic hypotension Category: Medical (5) Implantable loop recorder present: Code(s): Z95.818 - Presence of other cardiac implants and grafts Category: Medical Plan Cardiac studies reviewed. Echocardiogram with LVEF of 61%. No wall motion abnormalities. Normal diastolic function. Otherwise unremarkable. Coronary CTA shows only mild coronary disease. Nothing hemodynamically significant. Tilt-table study positive orthostatic hypotension. Status post AVNRT ablation. With regard to the AVNRT, seems resolved at this time. With regard to the orthostatic hypotension -could be because of weight loss. Seems to have stabilized. Avoid losing excessive weight as that may again precipitate hypotension. With regard to the sinus bradycardia, no specific management. Not on rate slowing drugs. With regard to mild CAD, obtain lipids from PCP. He states that he cannot takes statins as he has had many side effects. With regard to the ILR, plan for removal. 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 Discussed with significant other. Coding Level of Care Code Est Pt Level 4 (07647) Complex EM visit Add On G2211 Diagnoses SVT (supraventricular tachycardia) I47.1 Sinus bradycardia R00.1 Atherosclerotic cardiovascular disease I25.10 Orthostatic hypotension I95.1 Implantable loop recorder present Z95.818 CPT Codes EKG - CPT: 20220-[id number], Complete ([id number])
[2024-11-21 14:26] VITALS: BP 100/62; PULSE 49; BMI 31.5
--- OUTSIDE RECORDS SUMMARY | 2024-11-21 17:59 | XMS_ITS | Encounter Summary ---
Author Organization [facility] Address [address] [place] [address] Care Team Providers Care Quality Measurement Specialist Name Role Phone Fannie Faye DO Primary Care Pro vider Unavailable Pramod Lord MD Primary Care Provider [phone] Fannie Faye DO Primary Care Pro vider Unavailable Pramod Lord MD Primary Care Provider [phone] Eron Small Primary Care Provider Eva vailable Pramod Lord MD Primary Care Provider [phone] Fannie Faye DO Primary Care Pro vider Unavailable Jose Juan Rodriguez DO Primary Care Provider Eva vailable Alexys Baumann MD Primary Care Provider [phone] Encounter Details Date Type Department Care Team Description 08/27/2013 Hospital Medical Records [address] [place] [address] Nicolasa Goyal PA-C Social History Tobacco Use Types Packs/Day Years Used Date Smoking Tobacco: Never Smokeless Tobacco: Never Alcohol Use Standard Drinks/Week Comments Not Currently 0 (1 standard drink = 0.6 oz pure alcohol) SOCIAL; less than one per week Sex Assigned at Date Recorded Not on file Job Start Date Occupation Industry Not on file Not on file Not on file documented as of this encounter Plan of Treatment Not on file documented as of this encounter Visit Diagnoses Not on filedocumented in this encounter Care Teams Quality Measurement Specialist Relationship Specialty Start Date End Date Fannie Faye DO PCP - General Internal Medicine 12/06/14 05/26/15 Pramod Lord MD [address] [place] [address] [id number] PCP - General Internal Medicine 05/27/15 08/15/15 Fannie Faye DO PCP - General Internal Medicine 08/16/15 09/03/15 Pramod Lord MD [address] [place] [address] 61847 PCP - General Internal Medicine 09/04/15 12/17/17 Eron Small [address] [place] [address] 63194 PCP - General Pulmonology 12/18/17 04/05/18 Pramod Lord MD [address] [place] [address] 42748 PCP - General Internal Medicine 04/06/18 01/28/21 Fannie Faye DO PCP - General 08/27/13 12/05/14 Jose Juan Rodriguez DO [address] [place] [address] 00884 PCP - General Internal Medicine 01/29/21 07/21/21 Alexys Baumann MD [address] [place] [address] 68805 PCP - General Internal Medicine 07/22/21 documented as of this encounter
--- OUTSIDE RECORDS SUMMARY | 2024-11-21 17:59 | XMS_ITS | Encounter Summary ---
Author Organization [facility] Address [address] [place] [address] Care Team Providers Care Merchandising Stock Associate Name Role Phone Fannie Faye DO Primary Care Pro vider Unavailable Pramod Lord MD Primary Care Provider [phone] Fannie Faye DO Primary Care Pro vider Unavailable Pramod Lord MD Primary Care Provider [phone] Eron Small Primary Care Provider Eva vailable Pramod Lord MD Primary Care Provider [phone] Fannie Faye DO Primary Care Pro vider Unavailable Jose Juan Rodriguez DO Primary Care Provider Eva vailable Alexys Baumann MD Primary Care Provider [phone] Encounter Details Date Type Department Care Team Description 06/01/2014 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 Driver'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 Driver Report Medical Records [address] [place] [address] Stephan Diego MD Social History Tobacco Use Types Packs/Day Years Used Date Smoking Tobacco: Never Smokeless Tobacco: Never Alcohol Use Standard Drinks/Week Comments Not Asked 0 (1 standard drink = 0.6 oz pur e alcohol) SOCIAL Sex Assigned at Date Recorded Not on file Job Start Date Occupation Industry Not on file Not on file Not on file documented as of this encounter Plan of Treatment Not on file documented as of this encounter Visit Diagnoses Not on filedocumented in this encounter Care Teams Merchandising Stock Associate Relationship Specialty Start Date End Date Fannie Faye DO PCP - General Internal Medicine 12/06/14 05/26/15 Pramod Lord MD [address] [place] [address] [phone] PCP - General Internal Medicine 05/27/15 08/15/15 Fannie Faye DO PCP - General Internal Medicine 08/16/15 09/03/15 Pramod Lord MD [address] [place] [address] [phone] PCP - General Internal Medicine 09/04/15 12/17/17 Eron Small [address] [place] [address] [id number] PCP - General Pulmonology 12/18/17 04/05/18 Pramod Lord MD [address] [place] [address] [phone] PCP - General Internal Medicine 04/06/18 01/28/21 Fannie Faye DO PCP - General 08/27/13 12/05/14 Jose Juan Rodriguez DO [address] [place] [address] [phone] PCP - General Internal Medicine 01/29/21 07/21/21 Alexys Baumann MD [address] [place] [address] [phone] PCP - General Internal Medicine 07/22/21 documented as of this encounter
--- OUTSIDE RECORDS SUMMARY | 2024-11-21 17:59 | XMS_ITS | Encounter Summary ---
Author Organization [facility] Address [address] [place] [address] Care Team Providers Care Animal Trainer Supervisor Name Role Phone Alexys Baumann MD Primary Care Provider [phone] Encounter Details Date Type Department Care Team Description 12/02/2021 DOT Physical Forms Medical Records [address] [id number] Taras Jacome MD [facility] [place] [address] Social History Tobacco Use Types Packs/Day Years Used Date Smoking Tobacco: Never Smokeless Tobacco: Never Alcohol Use Standard Drinks/Week Comments Yes 0 (1 standard drink = 0.6 oz pur e alcohol) SOCIAL; less than one per week Sex Assigned at Date Recorded Not on file Job Start Date Occupation Industry Not on file Not on file Not on file COVID-19 Exposure Response Date Recorded In the last month, have you been in contact with someone who was confirmed or suspected to have Coronavirus / COVID-19? No / Unsure 12/04/2021 10:27 AM EST documented as of this encounter Plan of Treatment Not on file documented as of this encounter Visit Diagnoses Not on filedocumented in this encounter Care Teams Animal Trainer Supervisor Relationship Specialty Start Date End Date Alexys Baumann MD [address] [place] [address] PCP - General Internal Medicine 07/22/21 documented as of this encounter
--- OUTSIDE RECORDS SUMMARY | 2024-11-21 17:59 | XMS_ITS | Encounter Summary ---
Author Organization [facility] Address [address] [place] [address] Care Team Providers Care Employment Specialist/Program Manager Name Role Phone Alexys Baumann MD Primary Care Provider [phone] Encounter Details Date Type Department Care Team Description 10/30/2021 Mold Repair Technician Report Medical Records [address] [place] [address] Jenise Salazar MD Social History Tobacco Use Types Packs/Day [...] or suspected to have Coronavirus / COVID-19? Yes 10/28/2021 8:00 AM EST documented as of this encounter Plan of Treatment Not on file documented as of this encounter Visit Diagnoses Not on filedocumented in this encounter Care Teams Employment Specialist/Program Manager Relationship Specialty Start Date End Date Alexys Baumann MD [address] [place] [address] PCP - General Internal Medicine 07/22/21 documented as of this encounter
--- OUTSIDE RECORDS SUMMARY | 2024-11-21 17:59 | XMS_ITS | Encounter Summary ---
Author Organization [facility] Address [address] [place] [address] Care Team Providers Care Systems Support Specialist Name Role Phone Fannie Faye DO Primary Care Pro vider Unavailable Pramod Lord MD Primary Care Provider [phone] Fannie Faye DO Primary Care Pro vider Unavailable Pramod Lord MD Primary Care Provider [phone] Eron Small Primary Care Provider Eva vailable Pramod Lord MD Primary Care Provider [phone] Fannie Faye DO Primary Care Pro vider Unavailable Jose Juan Rodriguez DO Primary Care Provider Eva vailable Alexys Baumann MD Primary Care Provider [phone] Encounter Details Date Type Department Care Team Description 05/22/2014 Release of Information Medical Records [address] [place] [id number] Abstract, Provider Social History Tobacco Use Types Packs/Day Years [...] on filedocumented in this encounter Care Teams Systems Support Specialist Relationship Specialty Start Date End Date Fannie Faye DO PCP - General Internal Medicine 12/06/14 05/26/15 Pramod Lord MD [address] [place] [phone] PCP - General Internal Medicine 05/27/15 08/15/15 Fannie Faye DO PCP - General Internal Medicine 08/16/15 09/03/15 Pramod Lord MD [address] [place] [address] 95574 PCP - General Internal Medicine 09/04/15 12/17/17 Eron Small [address] [place] [address] 58971 PCP - General Pulmonology 12/18/17 04/05/18 Pramod Lord MD [address] [place] [address] 70467 PCP - General Internal Medicine 04/06/18 01/28/21 Fannie Faye DO PCP - General 08/27/13 12/05/14 Jose Juan Rodriguez DO [address] [place] [address] 71983 PCP - General Internal Medicine 01/29/21 07/21/21 Alexys Baumann MD [address] [place] [address] 87417 PCP - General Internal Medicine 07/22/21 documented as of this encounter
--- OUTSIDE RECORDS SUMMARY | 2024-11-21 17:59 | XMS_ITS | Encounter Summary ---
Author Organization [facility] Address [id number] [place] [id number] Care Team Providers Care Principal Software Architect Name Role Phone Alexys Baumann MD Primary Care Provider [phone] Encounter Details Date Type Department Care Team (Latest Contact Info) Description 10/18/2024 8:20 AM EST Anticoagulation - Warfarin Visit Coumadin [address] [phone] Heterozygous factor V Leiden mutation (CMS/HCC) (Primary Dx); Pulmonary embolism, unspecified chronicity, unspecified pulmonary embolism type, unspecified whether acute cor pulmonale present (CMS/HCC); correction (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 Social History Tobacco Use Types Packs/Day Years Used Date Smoking Tobacco: Never Smokeless Tobacco: Never Alcohol Use Standard Drinks/Week Comments Not Currently 0 (1 standard drink = 0.6 oz pur e alcohol) Sex and Gender Information Value Date Recorded Sex Assigned at Not on file Legal Sex Male 3:40 PM EST Gender Identity Not on file Sexual Orientation Not on file documented as of this encounter Plan of Treatment Upcoming Encounters Date Type Department Care Team (Latest Contact Info) Description 11/28/2024 8:10 AM EST Anticoagulation - Warfarin Visit Coumadin [address] [phone] 12/01/2024 8:00 AM EST Anticoagulation - Warfarin Visit Coumadin [address] [phone] documented as of this encounter Procedures Procedure Name Priority Date/Time Associated Diagnosis Comments POC PROTIME INR BLOOD Routine 10/18/2024 Heterozygous factor V Leiden mutation (CMS/HCC) Pulmonary embolism, unspecified chronicity, unspecified pulmonary embolism type, unspecified whether acute cor pulmonale present (CMS/HCC) intermodal customer service (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 documented in this encounter Results * POC Protime INR Blood (10/18/2024) Lot Number INR POC 1.2 Prothrombin Time POC Exp Date Blood 10/18/2024 Shravan Garcia MD POINT OF CARE TEST ENTER/EDIT ORDERABLES Edited Result - Final documented in this encounter Visit Diagnoses Diagnosis Heterozygous factor V Leiden mutation (CMS/HCC)- Primary Primary hypercoagulable state Pulmonary embolism, unspecified chronicity, unspecified pulmonary embolism type, unspecified whether acute cor pulmonale present (CMS/HCC) intermodal customer service (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 Long-term (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 documented in this encounter Care Teams Principal Software Architect Relationship Specialty Start Date End Date Alexys Baumann MD [address] [place] [address] PCP - General Internal Medicine 08/15/24 documented as of this encounter
--- OUTSIDE RECORDS SUMMARY | 2024-11-21 17:59 | XMS_ITS | Encounter Summary ---
Author Organization [facility] Address [address] [place] [address] Care Team Providers Care Demand Planning Manager Name Role Phone Fannie Faye DO Primary Care Pro vider Unavailable Pramod Lord MD Primary Care Provider [phone] Fannie Faye DO Primary Care Pro vider Unavailable Pramod Lord MD Primary Care Provider [phone] Eron Small Primary Care Provider Eva vailable Pramod Lord MD Primary Care Provider [phone] Fannie Faye DO Primary Care Pro vider Unavailable Jose Juan Rodriguez DO Primary Care Provider Eva vailable Alexys Baumann MD Primary Care Provider [phone] Encounter Details Date Type Department Care Team Description 05/22/2014 HEDGE FUND TRADER/MassPat Report Medical Records [address] [place] [address] Abstract, Provider Social History Tobacco Use Types [...] on filedocumented in this encounter Care Teams Demand Planning Manager Relationship Specialty Start Date End Date KraFannie Gonzalez DO PCP - General Internal Medicine 12/06/14 05/26/15 Pramod Lord MD [address] [place] [phone] PCP - General Internal Medicine 05/27/15 08/15/15 Fannie Faye DO PCP - General Internal Medicine 08/16/15 09/03/15 Pramod Lord MD [address] [place] [address] 60426 PCP - General Internal Medicine 09/04/15 12/17/17 Eron Small [address] [place] [address] 29019 PCP - General Pulmonology 12/18/17 04/05/18 Pramod Lord MD [address] [place] [address] 51735 PCP - General Internal Medicine 04/06/18 01/28/21 Fannie Faye DO PCP - General 08/27/13 12/05/14 Jose Juan Rodriguez DO [address] [place] [address] 11777 PCP - General Internal Medicine 01/29/21 07/21/21 Alexys Baumann MD [address] [place] [address] 40079 PCP - General Internal Medicine 07/22/21 documented as of this encounter
--- OUTSIDE RECORDS SUMMARY | 2024-11-21 17:59 | XMS_ITS | Encounter Summary ---
Author Organization [facility] Address [address] [place] [address] Care Team Providers Care Wheat Grower Name Role Phone Alexys Baumann MD Primary Care Provider [phone] Encounter Details Date Type Department Care Team Description 04/09/2022 Hospital Medical Records [address] [place] [address] Tano Peraza MD [address] [facility] [address] [place] [address] Social History Tobacco Use Types Packs/Day Years [...] Exposure Response Date Recorded In the last 10 days, have yo u been in contact with someone who was confirmed or suspected to have Coronavirus/COVID-19? No / Unsure 04/08/2022 1:31 PM EDT documented as of this encounter Plan of Treatment Not on file documented as of this encounter Visit Diagnoses Not on filedocumented in this encounter Care Teams Wheat Grower Relationship Specialty Start Date End Date Alexys Baumann MD [address] [place] [address] PCP - General Internal Medicine 07/22/21 documented as of this encounter
--- OUTSIDE RECORDS SUMMARY | 2024-11-21 17:59 | XMS_ITS | Encounter Summary ---
Author Organization [facility] Address [address] [place] [address] Care Team Providers Care Lacemaker Name Role Phone Alexys Baumann MD Primary Care Provider [phone] Reason for Visit * Reason Comments E-prescribe Rx Request Encounter Details Date Type Department Care Team Description 04/03/2022 Refill Adult Medicine [facility] [address] [place] [address] [phone] Alexys Baumann MD [address] [place] [address] [phone] E-prescribe Rx Request Social History Tobacco Use Types Packs/Day Years [...] suspected to have Coronavirus/COVID-19? No / Unsure 04/01/2022 8:09 AM EDT documented as of this encounter Miscellaneous Notes * Telephone Encounter - Jeremie Rios M.A. - 04/15/2022 10:30 AM EDT Lab Results Component Value Date NA 139 12/04/2021 K 4.2 12/04/2021 CO2 29 12/04/2021 CL 106 12/04/2021 BUN UNABLE TO REPORT 12/04/2021 CREAT 0.96 12/04/2021 GLU 91 12/04/2021 CA 9.4 12/04/2021 GFR > 60 12/04/2021 IMELDA 02/24/2022 w/Elisha Maya IMELDA w/PCP not on file Next OV 04/17/2022 w/Dr. Milan Next OV w/PCP 04/23/2022 * Telephone Encounter - Bisi Ferris - 04/15/2022 9:59 AM EDT L/m for pt call back make future appt. 3rd attmept pt needs to select new provider Alexys Baumann panel is close, never seen Alexys Baumann Letter mailed to patient * Telephone Encounter - Bisi Ferris - 04/13/2022 2:22 PM EDT L/m for pt call back make future appt. 2nd attempt pt needs to select new provider Alexys Baumann panel is close, never seen Alexys Baumann * Telephone Encounter - Bisi Ferris - 04/06/2022 3:52 PM EDT Patient would like script to be: E-PRESCRIBED/FAXED TO PHARMACY WHEN WAS THE PATIENT'S LAST APPOINTMENT IN ADULT MEDICINE? 02/24/22 WHEN WAS THE LAST TIME THE PATIENT SAW THEIR PCP? Never seen pcp Does patient have an upcoming appointment? No-unable to reach left [facility] to call for appointment due to refill request. Appt due (THE MEDICATION REQUESTED IS ON THE MED LIST ABOVE) All of the medications requested were on the CURRENT MEDS list Did you check the Pharmacy information above?: YES Patient wants: 90 -day supply Is this a mail order prescription request ? NO If the refill is from a FAXED refill request what is the RX # listed on the fax? N/A Patients current insurance carrier is: Payor: [employer] / Plan: [employer] INSURANCE / Product Type: OTHER documented in this encounter Plan of Treatment Not on file documented as of this encounter Visit Diagnoses Not on filedocumented in this encounter Care Teams Lacemaker Relationship Specialty Start Date End Date Alexys Baumann MD [address] [place] [id number] PCP - General Internal Medicine 07/22/21 documented as of this encounter
--- OUTSIDE RECORDS SUMMARY | 2024-11-21 17:59 | XMS_ITS | Encounter Summary ---
Author Organization [facility] Address [address] [place] [address] Care Team Providers Care Parts Person Name Role Phone David Sanchez MD Primary Care Provider Eva vailable Fannie Faye DO Primary Care Pro vider Unavailable Pramod Lord MD Primary Care Provider [phone] Fannie Faye DO Primary Care Pro vider Unavailable Pramod Lord MD Primary Care Provider [phone] Eron Small Primary Care Provider Eva vailable Pramod Lord MD Primary Care Provider [phone] Fannie Faye DO Primary Care Pro vider Unavailable Jose Juan Rodriguez DO Primary Care Provider Eva vailable Alexys Baumann MD Primary Care Provider [phone] Encounter Details Date Type Department Care Team Description 03/13/2010 Controlled Substance Plan Medical Records [address] [place] [address] Abstract, Provider Social History Tobacco Use Types Packs/Day Years Used Date Smoking Tobacco: Never Alcohol Use Standard Drinks/Week Comments Not Asked 0 (1 standard drink = 0.6 oz pur e alcohol) Sex Assigned at Date Recorded Not on file Job Start Date Occupation Industry Not on file Not on file Not on file documented as of this encounter Plan of Treatment Not on file documented as of this encounter Visit Diagnoses Not on filedocumented in this encounter Care Teams Parts Person Relationship Specialty Start Date End Date David Sanchez MD PCP - General 08/14/08 08/26/13 Fannie Faye, PCP - General Internal Medicine 12/06/14 05/26/15 Pramod Lord MD [address] [place] [address] PCP - General Internal Medicine 05/27/15 08/15/15 Fannie Faye, PCP - General Internal Medicine 08/16/15 09/03/15 Pramod Lord MD [address] [place] [address] 78047 PCP - General Internal Medicine 09/04/15 12/17/17 Eron Small [address] [place] [address] 45743 PCP - General Pulmonology 12/18/17 04/05/18 Pramod Lord MD [address] [place] [address] 93256 PCP - General Internal Medicine 04/06/18 01/28/21 Fannie Faye, PCP - General 08/27/13 12/05/14 Jose Juan Rodriguez DO [address] [place] [address] 01372 PCP - General Internal Medicine 01/29/21 07/21/21 Alexys Baumann MD [address] [place] [address] 99805 PCP - General Internal Medicine 07/22/21 documented as of this encounter
--- OUTSIDE RECORDS SUMMARY | 2024-11-21 17:59 | XMS_ITS | Encounter Summary ---
Author Organization [facility] Address [address] [place] [address] Care Team Providers Care Manager Client Service Name Role Phone Alexys Baumann MD Primary Care Provider [phone] Reason for Visit * Reason Comments E-prescribe Rx Request Encounter Details Date Type Department Care Team Description 08/28/2021 Refill Adult Medicine [facility] [address] [place] [address] Pramod Lord MD [address] [place] [address] 72767 E-prescribe Rx Request Social History Tobacco Use [...] have Coronavirus / COVID-19? No / Unsure 08/26/2021 7:55 AM EST documented as of this encounter Miscellaneous Notes * Telephone Encounter - Anand Mejia - 09/03/2021 9:20 AM EST Rx D/C per pt. * Telephone Encounter - Eleonora Reyes M.A. - 08/28/2021 2:32 PM EST Lab Results Component Value Date NA 140 12/13/2018 K 4.1 12/13/2018 CO2 27 12/13/2018 CL 106 12/13/2018 BUN 15 12/13/2018 CREAT 0.88 12/13/2018 GLU 129 12/13/2018 CA 8.6 12/13/2018 GFR > 60 12/13/2018 IMELDA 10/10/19 LRF's 08/26/20 for #30 with 3 refills, please refuse pharmacy refill request if NOT appropriate. NEW to PCP *Appears patient is on Lexapro, see outside medications. * Telephone Encounter - Ramona Mitra - 08/28/2021 7:38 AM EST Patient would like script to be: E-PRESCRIBED/FAXED TO PHARMACY WHEN WAS THE PATIENT'S LAST APPOINTMENT IN ADULT MEDICINE? 10/10/19 WHEN WAS THE LAST TIME THE PATIENT SAW THEIR PCP? Has not seen PCP Does patient have an upcoming appointment? No-unable to reach left [facility] to call for appointment due to refill [...] N/A Patients current insurance carrier is: Payor: [facility] / Plan: [facility] INSURANCE / Product Type: OTHER documented in this encounter Plan of Treatment Not on file documented as of this encounter Visit Diagnoses Not on filedocumented in this encounter Care Teams Manager Client Service Relationship Specialty Start Date End Date Alexys Baumann MD [address] [place] [address] 77[address] PCP - General Internal Medicine 07/22/21 documented as of this encounter
--- OUTSIDE RECORDS SUMMARY | 2024-11-21 17:59 | XMS_ITS | Encounter Summary ---
Author Organization [facility] Address [address] [place] [address] Care Team Providers Care Exploration Engineer Name Role Phone Pramod Lord MD Primary Care Provider [phone] Jose Juan Rodriguez DO Primary Care Provider Eva vailable Alexys Baumann MD Primary Care Provider [phone] Encounter Details Date Type Department Care Team Description 08/25/2018 Windows Consultant Report Medical Records [address] [place] [address] Jenise Salazar MD Social History Tobacco Use [...] on filedocumented in this encounter Care Teams Exploration Engineer Relationship Specialty Start Date End Date Pramod Lord MD [address] [place] [address] 05348 PCP - General Internal Medicine 04/06/18 01/28/21 Jose Juan Rodriguez DO [address] [place] [address] 58[address] PCP - General Internal Medicine 01/29/21 07/21/21 Alexys Baumann MD [address] [place] [address] [phone] PCP - General Internal Medicine 07/22/21 documented as of this encounter
--- OUTSIDE RECORDS SUMMARY | 2024-11-21 17:59 | XMS_ITS | Encounter Summary ---
Author Organization [facility] Address [address] [place] [address] Care Team Providers Care Heavy Equipment Operator/Paver Name Role Phone Pramod Lord MD Primary Care Provider [phone] Jose Juan Rodriguez DO Primary Care Provider Eva vailable Alexys Baumann MD Primary Care Provider [phone] Encounter Details Date Type Department Care Team Description 04/28/2018 Saw Offbearer Report Medical Records [address] [place] [address] Jenise Salazar MD Social History Tobacco Use [...] on filedocumented in this encounter Care Teams Heavy Equipment Operator/Paver Relationship Specialty Start Date End Date Pramod Lord MD [address] [place] [address] 90622 PCP - General Internal Medicine 04/06/18 01/28/21 Jose Juan Rodriguez DO [address] [place] [address] 11530 PCP - General Internal Medicine 01/29/21 07/21/21 Alexys Baumann MD [address] [place] [address] [phone] PCP - General Internal Medicine 07/22/21 documented as of this encounter
--- OUTSIDE RECORDS SUMMARY | 2024-11-21 17:59 | XMS_ITS | Encounter Summary ---
Author Organization [facility] Address [address] [place] [address] Care Team Providers Care Automotive Consultant Name Role Phone Alexys Baumann MD Primary Care Provider [phone] Encounter Details Date Type Department Care Team Description 03/23/2022 Orders Only Gastroenterology - [place] [address] [place] [id number] Tano Peraza MD [address] [place] [address] Oropharyngeal dysphagia Social History Tobacco Use Types Packs/Day Years [...] suspected to have Coronavirus/COVID-19? No / Unsure 03/04/2022 3:15 PM EDT documented as of this encounter Plan of Treatment Not on file documented as of this encounter Procedures Procedure Name Priority Date/Time Associated Diagnosis Comments CHG RADIOLOGIC EXAM ESOPHAGU S SINGLE CONTRAST STUDY Routine 03/23/2022 Oropharyngeal dysphagia documented in this encounter Results * RADIOLOGIC EXAM ESOPHAGUS SINGLE CONTRAST STUDY (03/23/2022) Tano Peraza MD RADIOLOGY documented in this encounter Visit Diagnoses Diagnosis Oropharyngeal dysphagia Dysphagia, oropharyngeal phase documented in this encounter Care Teams Automotive Consultant Relationship Specialty Start Date End Date Alexys Baumann MD [address] [place] [address] PCP - General Internal Medicine 07/22/21 documented as of this encounter
--- OUTSIDE RECORDS SUMMARY | 2024-11-21 17:59 | XMS_ITS | Encounter Summary ---
Author Organization [facility] Address [address] [place] [address] Care Team Providers Care Musical Instrument Maker Name Role Phone Eron Small Primary Care Provider Eva Pramod Miller MD Primary Care Provider + [phone] Jose Juan Rodriguez DO Primary Care Provider Eva Alexys Wright MD Primary Care Provider [phone] Encounter Details Date Type Department Care Team Description 01/23/2018 Hospital Medical Records [address] [place] [address] Naga Carnes Social History Tobacco Use Types Packs/Day Years [...] on filedocumented in this encounter Care Teams Musical Instrument Maker Relationship Specialty Start Date End Date Eron Small PCP - General Pulmonology 12/18/17 04/05/18 Pramod Lord MD [address] [place] [address] 80952 PCP - General Internal Medicine 04/06/18 01/28/21 Jose Juan Rodriguez DO [address] [place] [address] 76763 PCP - General Internal Medicine 01/29/21 07/21/21 Alexys Baumann MD [address] [place] [address] PCP - General Internal Medicine 07/22/21 documented as of this encounter
--- OUTSIDE RECORDS SUMMARY | 2024-11-21 17:59 | XMS_ITS | Encounter Summary ---
Author Organization [facility] Address [address] [place] [address] Care Team Providers Care Rn First Assistant Name Role Phone Fannie Faye DO Primary Care Pro vider Unavailable Pramod Lord MD Primary Care Provider + [phone] Fannie Faye DO Primary Care Pro vider Unavailable Pramod Lord MD Primary Care Provider + [phone] Eron Small Primary Care Provider Eva vailable Pramod Lord MD Primary Care Provider [phone] Fannie Faye DO Primary Care Pro vider Unavailable Jose Juan Rodriguez DO Primary Care Provider Eva vailable Alexys Baumann MD Primary Care Provider [phone] Encounter Details Date Type Department Care Team Description 08/28/2013 Hospital Medical Records [address] [place] [address] Disha Kruger, [facility] [address] [place] [address] Social History Tobacco Use Types Packs/Day Years [...] on filedocumented in this encounter Care Teams Rn First Assistant Relationship Specialty Start Date End Date Fannie Faye DO PCP - General Internal Medicine 12/06/14 05/26/15 Pramod Lord MD [address] [place] [address] PCP - General Internal Medicine 05/27/15 08/15/15 Fannie Faye DO PCP - General Internal Medicine 08/16/15 09/03/15 Pramod Lord MD [address] [place] [address] 66565 PCP - General Internal Medicine 09/04/15 12/17/17 Eron Small [address] [place] [address] 01284 PCP - General Pulmonology 12/18/17 04/05/18 Pramod Lord MD [address] [place] [address] 29567 PCP - General Internal Medicine 04/06/18 01/28/21 Fannie Faye DO PCP - General 08/27/13 12/05/14 Jose Juan Rodriguez DO [address] [place] [address] 69267 PCP - General Internal Medicine 01/29/21 07/21/21 Alexys Baumann MD [address] [place] [address] 99204 PCP - General Internal Medicine 07/22/21 documented as of this encounter
--- OUTSIDE RECORDS SUMMARY | 2024-11-21 17:59 | XMS_ITS | Encounter Summary ---
Author Organization [facility] Address [address] [place] [address] Care Team Providers Care Auto Rental Supervisor Name Role Phone Fannie Faye DO Primary Care Pro vider Unavailable Pramod Lord MD Primary Care Provider + [phone] Fannie Faye DO Primary Care Pro vider Unavailable Pramod Lord MD Primary Care Provider + [phone] Eron Small Primary Care Provider Eva vailable Pramod Lord MD Primary Care Provider + [phone] Fannie Faye DO Primary Care Pro vider Unavailable Jose Juan Rodriguez DO Primary Care Provider Eva vailable Alexys Baumann MD Primary Care Provider [phone] Reason for Visit * Reason Onset Date Comments Back Pain 05/16/2014 Encounter Details Date Type Department Care Team Description 05/16/2014 Telephone Adult Medicine [address] [address] David Khanna MD Back Pain Social History Tobacco Use Types Packs/Day Years Used Date Smoking Tobacco: Never Smokeless Tobacco: Never Alcohol Use Standard Drinks/Week Comments Not Asked 0 (1 standard drink = 0.6 oz pur e alcohol) SOCIAL Sex Assigned at Date Recorded Not on file Job Start Date Occupation Industry Not on file Not on file Not on file documented as of this encounter Miscellaneous Notes * Telephone Encounter - David Khanna MD - 05/17/2014 3:51 PM EDT Sent * Telephone Encounter - Bindu Avelar R.N. - 05/17/2014 3:[address] Khanna Plan of care note on 05/14/14 Cervical radiculopathy, patient will start prednisone if no improvement over the next week consider repeat MRI and referral to physiatry . No Prednisone prescription was every generated. Request forwarded to Dr. Khanna for consideration. * Telephone Encounter - David Khanna MD - 05/16/2014 9:28 PM EDT Unfortunately he has a control substance violation * Telephone Encounter - Iesha Patel R.N. - 05/16/2014 5:10 PM EDT [phone].cell number. He is not at work and this was his house and work . Gave him the message.He is not happy with the disci son that he cant get the narcotic. 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 He has gerardo don urine testing. And he has been fine. He knows he should not take the NSAID buthe is hurting. In your note from when you saw him, you were going to give him Prednisone and there is not script anywhere or pharmacy. ? Can You give him something for the pain, if no narcotic what cn he take? Should he have the Prednsone? * Telephone Encounter - Balta Vega PA-C - 05/16/2014 4:49 PM EDT Please advise patient I cannot prescribe narcotic pain medications, because of his history of controlled substance contract violation. She should not be taking NSAIDs because of his anticoagulation with Coumadin. Muscle relaxers would be reasonable. Balta Vega PA-C * Telephone Encounter - Katie Galicia R.N. - 05/16/2014 1:25 PM EDT [phone] (home) [phone] (work) was given vicodin in the hospital he does not have a prednisone taper, no script was given althoughDr Laura note stated he is on it, will need a script if to continue He continues to c/o neck pain, using heat no relief was seen 05/13/[address] [facility], i called the pharmacy he did get dexamethasone4 mg to take 2 tabs yesterday and today he did take but did not know what med was for , he also has robaxin please advise i did tell him he was in violation of med contract from 2012 * Telephone Encounter - Alysia Patel - 05/16/2014 10:44 AM EDT Symptoms patient is presenting: the pt saw Dr Khanna on 05/14/2014 dx back pain and wants to know if pain meds can be ordered How long has patient had these symptoms?: PCP: David Khanna Payor: Xipin / Plan: Xipin $0 [id number] / Product Type: MEDICAID [id number] documented in this encounter Plan of Treatment Not on file documented as of this encounter Visit Diagnoses Not on filedocumented in this encounter Care Teams Auto Rental Supervisor Relationship Specialty Start Date End Date Fannie Faye DO PCP - General Internal Medicine 12/06/14 05/26/15 Pramod Lord MD [address] [place] [address] 95158 PCP - General Internal Medicine 05/27/15 08/15/15 Fannie Faye DO PCP - General Internal Medicine 08/16/15 09/03/15 Pramod Lord MD [address] [place] [address] 61103 PCP - General Internal Medicine 09/04/15 12/17/17 Eron Small [address] [place] [address] 84732 PCP - General Pulmonology 12/18/17 04/05/18 Pramod Lord MD [address] [place] [address] 51210 PCP - General Internal Medicine 04/06/18 01/28/21 Fannie Faye DO PCP - General 08/27/13 12/05/14 Jose Juan Rodriguez DO [address] [place] [address] 49866 PCP - General Internal Medicine 01/29/21 07/21/21 Alexys Baumann MD [address] [place] [address] 73115 PCP - General Internal Medicine 07/22/21 documented as of this encounter
--- OUTSIDE RECORDS SUMMARY | 2024-11-21 17:59 | XMS_ITS | Encounter Summary ---
Author Organization [facility] Address [address] [place] [address] Care Team Providers Care Merchandise Supervisor Name Role Phone Fannie Faye DO Primary Care Pro vider Unavailable Pramod Lord MD Primary Care Provider [phone] Fannie Faye DO Primary Care Pro vider Unavailable Pramod Lord MD Primary Care Provider [phone] Eron Small Primary Care Provider Eva vailable Pramod Lord MD Primary Care Provider [phone] Fannie Faye DO Primary Care Pro vider Unavailable Jose Juan Rodriguez DO Primary Care Provider Eva vailable Alexys Baumann MD Primary Care Provider [phone] Encounter Details Date Type Department Care Team Description 06/22/2014 Hospital Medical Records [address] [place] [address] Stephan Diego MD Social History Tobacco Use [...] on filedocumented in this encounter Care Teams Merchandise Supervisor Relationship Specialty Start Date End Date Fannie Faye DO PCP - General Internal Medicine 12/06/14 05/26/15 Pramod Lord MD [address] [place] [address] 46743 PCP - General Internal Medicine 05/27/15 08/15/15 Fannie Faye DO PCP - General Internal Medicine 08/16/15 09/03/15 Pramod Lord MD [address] [place] [address] 25196 PCP - General Internal Medicine 09/04/15 12/17/17 Eron Small [address] [place] [address] 25082 PCP - General Pulmonology 12/18/17 04/05/18 Pramod Lord MD [address] [place] [address] 58263 PCP - General Internal Medicine 04/06/18 01/28/21 Fannie Faye DO PCP - General 08/27/13 12/05/14 Jose Juan Rodriguez DO [address] [place] [address] 37286 PCP - General Internal Medicine 01/29/21 07/21/21 Alexys Baumann MD [address] [place] [address] 54078 PCP - General Internal Medicine 07/22/21 documented as of this encounter
--- OUTSIDE RECORDS SUMMARY | 2024-11-21 17:59 | XMS_ITS | Encounter Summary ---
Author Organization [facility] Address [address] [place] [address] Care Team Providers Care Hearing Aid Fitter Name Role Phone David Sanchez MD Primary Care Provider Eva vailable Fannie Faye DO Primary Care Pro vider Unavailable Pramod Lord MD Primary Care Provider [phone] Fannie Faye DO Primary Care Pro vider Unavailable Pramod Lord MD Primary Care Provider [phone] Eron Small Primary Care Provider Eva vailable Pramod Lord MD Primary Care Provider [phone] Fannie Faye DO Primary Care Pro vider Unavailable Jose Juan Rodriguez DO Primary Care Provider Eva vailable Alexys Baumann MD Primary Care Provider [phone] Encounter Details Date Type Department Care Team Description 01/29/2011 DOT Physical Forms Medical Records [address] [place] [address] Abstract, Provider Social History Tobacco Use Types [...] on filedocumented in this encounter Care Teams Hearing Aid Fitter Relationship Specialty Start Date End Date David Sanchez MD PCP - General 08/14/08 08/26/13 Fannie Faye, PCP - General Internal Medicine 12/06/14 05/26/15 Pramod Lord MD [address] [place] [address] 94603 PCP - General Internal Medicine 05/27/15 08/15/15 Fannie Faye, PCP - General Internal Medicine 08/16/15 09/03/15 Pramod Lord MD [address] [place] [address] 44432 PCP - General Internal Medicine 09/04/15 12/17/17 Eron Small [address] [place] [address] 33908 PCP - General Pulmonology 12/18/17 04/05/18 Pramod Lord MD [address] [place] [address] 66562 PCP - General Internal Medicine 04/06/18 01/28/21 Fannie Faye, PCP - General 08/27/13 12/05/14 Jose Juan Rodriguez DO [address] [place] [address] 61702 PCP - General Internal Medicine 01/29/21 07/21/21 Alexys Bamuann MD [address] [place] [address] 38153 PCP - General Internal Medicine 07/22/21 documented as of this encounter
--- OUTSIDE RECORDS SUMMARY | 2024-11-21 17:59 | XMS_ITS | Encounter Summary ---
Author Organization [facility] Address [address] [place] [address] Care Team Providers Care Supervisor Statement Clerks Name Role Phone Alexys Baumann MD Primary Care Provider Encounter Details Date Type Department Care Team (Latest Contact Info) Description 11/17/2024 1:50 PM EST Anticoagulation - Warfarin Visit Coumadin [address] [phone] Heterozygous factor V Leiden mutation (CMS/HCC) (Primary Dx); Pulmonary embolism, unspecified chronicity, unspecified pulmonary embolism type, unspecified whether acute cor pulmonale present (CMS/HCC); residential (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 Social History Tobacco [...] AM EST Anticoagulation - Warfarin Visit Coumadin [address] [phone] 12/01/2024 8:00 AM EST Anticoagulation - Warfarin Visit Coumadin [address] [phone] documented as of this encounter Procedures Procedure Name Priority Date/Time Associated Diagnosis Comments POC PROTIME INR BLOOD Routine 11/17/2024 Heterozygous factor V Leiden mutation (CMS/HCC) Pulmonary embolism, unspecified chronicity, unspecified pulmonary embolism type, unspecified whether acute cor pulmonale present (CMS/HCC) meterman (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 documented in this encounter Results * POC Protime INR Blood (11/17/2024) Lot Number INR POC 2.9 Prothrombin Time POC Exp Date Blood 11/17/2024 Alexys Baumann MD POINT OF CARE TEST ENTER/EDIT O RDERABLES Final Result documented in this encounter Visit Diagnoses Diagnosis Heterozygous factor V Leiden mutation (CMS/HCC)- Primary Primary hypercoagulable state Pulmonary embolism, unspecified chronicity, unspecified pulmonary embolism type, unspecified whether acute cor pulmonale present (CMS/HCC) residential (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 Long-term (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 documented in this encounter Care Teams Supervisor Statement Clerks Relationship Specialty Start Date End Date Alexys Baumann MD [address] [place] [address] PCP - General Internal Medicine 08/15/24 documented as of this encounter
--- OUTSIDE RECORDS SUMMARY | 2024-11-21 17:59 | XMS_ITS | Clinical Summary ---
Author Organization [facility] Address [address] [place] [phone] Phone Care Team Providers Care Scrapper Name Role Phone Alexys Baumann MD Primary Care Provider [phone] Allergies Active Allergy Reactions Criticality Noted Date Comments Acetaminophen-Codeine Nausea And Vomiting Medium 09/24 Tylenol W/codeine [acetaminophen-codei ne] Caused nausea and vimiting Pravastatin 06/24/2016 Myalgias Medications ASCORBIC ACID, VITAMIN C, ORAL Take 1 Tablet by mouth daily. Active hydrOXYzine HCL (ATARAX) 50 mg tablet TAKE 1 TABLET BY MOUTH FOUR TIMES A DAY 4 Active LORazepam (ATIVAN) 0.5 mg tablet TAKE 1 TABLET BY MOUTH EVERY DAY NEEDED FOR ANXIETY 2 Active scopolamine (TRANSDERM-SCO P) 1 mg over 3 days patch [address] 1 Patch onto the skin every [address] 4 hours prior to embarkation and change every 3 days until final disembarkation 4 Active THIAMINE HCL, VITAMIN B1, ORAL Take 1 Tablet by mouth daily. Active warfarin (COUMADIN) 5 mg tablet Take 1-3 Tablets by mouth daily. May cause heavy bleeding. Take at same time every day. Do not change dietary habits. 4 Active enoxaparin (LOVENOX) 100 mg/mL syringe Inject 1 mL (100 mg total) under the skin every 12 (twelve) hours. 10 each 1 5 Active Active Problems Problem Noted Date Diagnosed Date Heterozygous factor V Leiden mutation 08/29/2024 Pulmonary embolus 08/29/2024 residential (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 2023 Right lower quadrant abdominal mass 07/29/2022 Globus sensation 07/11/2019 DDD (degenerative disc disease), lumbar 01/10/20 19 Lumbar radiculopathy 01/09/2019 SVT (supraventricular tachycardia) 11/26/2017 Elevated glucose 11/09/2017 Elevated blood pressure reading 10/12/2017 TOMMIE (obstructive sleep apnea) 02/22/2014 Overview (09/15/2024): Last Assessment & Plan: I explained Mr. Stanford that we will need to do the followin. New sleep study to determine if with the weight loss his symptoms have decreased. In that case we will do a sleep study to see if he needs new parameters for the CPAP 2. We gave him the phone number from [employer] to call them to review the machine 3. I will see him back after the studies have been done. 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 Overview (09/15/2024): Testing pending however a strong family history, Sister sudden age 35,Multiple family members with factor V deficiency, patient with recent hospitalization for pulmonary embolism Encounters Date Type Department Care Team Description 11/17/2024 1:50 PM EST Anticoagulation - Warfarin Visit Coumadin [address] [phone] Heterozygous factor V Leiden mutation (CMS/HCC) (Primary Dx); Pulmonary embolism, unspecified chronicity, unspecified pulmonary embolism type, unspecified whether acute cor pulmonale present (CMS/HCC); residential (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 10/27/2024 2:10 PM EST Anticoagulation - Warfarin Visit Coumadin [address] [phone] Heterozygous factor V Leiden mutation (CMS/HCC) (Primary Dx); Pulmonary embolism, unspecified chronicity, unspecified pulmonary embolism type, unspecified whether acute cor pulmonale present (CMS/HCC); residential (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 10/20/2024 1:30 PM EST Anticoagulation - Warfarin Visit Coumadin [address] [phone] Heterozygous factor V Leiden mutation (CMS/HCC) (Primary Dx); Pulmonary embolism, unspecified chronicity, unspecified pulmonary embolism type, unspecified whether acute cor pulmonale present (CMS/HCC); residential (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 10/18/2024 8:20 AM EST Anticoagulation - Warfarin Visit [address] [phone] Heterozygous factor V Leiden mutation (CMS/HCC) (Primary Dx); Pulmonary embolism, unspecified chronicity, unspecified pulmonary embolism type, unspecified whether acute cor pulmonale present (CMS/HCC); residential (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 10/18/[address] [phone] Natalya Marina, WATER TREATMENT PLANT ENGINEER Medication Problem 10/04/2024 8:40 AM EST Anticoagulation - Warfarin Visit [address] [phone] Heterozygous factor V Leiden mutation (CMS/HCC) (Primary Dx); Pulmonary embolism, unspecified chronicity, unspecified pulmonary embolism type, unspecified whether acute cor pulmonale present (CMS/HCC); residential (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 08/29/2024 8:20 AM EST [facility] [address] [phone] Heterozygous factor V Leiden mutation (CMS/HCC) (Primary Dx); Pulmonary embolism, unspecified chronicity, unspecified pulmonary embolism type, unspecified whether acute cor pulmonale present (CMS/HCC); residential (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 from Last 3 Months Immunizations Name Administration Dates Next Due H1N1 Inj Preservative Free 09/16/2009 Influenza Quadravalent, MDCK , 0.5ml, preservative free (Flucelvax) 6mo and older 12/04/2021 Influenza Quadravalent, MDCK , 0.5ml, with preservative (Flucelvax) 6mo and older 08/03/2017 Influenza trivalent, with preservative (Fluzone; Afluria) 6mo and older 08/02/2013,06/02/2012,08/24/2011,2009 Tdap Tetanus diptheria acell ular pertussis (Boostrix; Adacel) 7yo and older 01/12/2012 Surgical History Surgery Date Site/Laterality Comments OTHER SURGICAL HISTORY 05/2014 PROCEDURE: NE ARTHRD ANT INTERBODY MIN DSC CRV BELOW C2; COMMENT: dr chen Medical History Medical History Date Comments Depression DX:Depression Anxiety DX:Anxiety Panic DX:Panic Factor V deficiency (CMS/HCC) DX :Factor V deficiency (HCC) PE (pulmonary embolism) DX:PE (p ulmonary embolism) Obesity DX:Obesity Historical Medical DX 01/13/2013 DX:Hyperli pidemia LDL goal < 130 TOMMIE (obstructive sleep apnea) 01/13/2013 DX :TOMMIE (obstructive sleep apnea); COMMENT: 02/07/2014 Poly AHI 17/RDI20 Multiple pulmonary nodules 01/13/2013 DX:Mu ltiple pulmonary nodules Noncompliance DX:Noncompliance Impaired fasting glucose 04/20/2017 DX:Impa ired fasting glucose Family History Medical History Relation Name Comments Coronary artery disease Father Diabetes Father Other: Other Father EMPHYSEMA, THRO AT CANCER. lung ca Other: aneurysm, brain Father Other cancer Mother LEUKEMIA Diabetes Paternal Grandfather Other: pulmonary embolism Sister 1 di ed 33 Relation Name Status Comments Brother Alive Father Alive heart Mother Alive leukemia Paternal Grandfather Sister 1 Sister 2 FACTOR 5 DEF, Sister 3 Alive also some 1/2 s ibs Social History Tobacco Use Types Packs/Day Years Used Date Smoking Tobacco: Never Smokeless Tobacco: Never Alcohol Use Standard Drinks/Week Comments Not Currently 0 (1 standard drink = 0.6 oz pur e alcohol) Sex and Gender Information Value Date Recorded Sex Assigned at Not on file Legal Sex Male 3:40 PM EST Gender Identity Not on file Sexual Orientation Not on file Obstetrics History Last Filed Vital Signs Vital Sign Reading Time Taken Comments Blood Pressure 112/60 01/12/2024 11:50 AM EDT Pulse 68 01/12/2024 11:50 AM EDT Temperature - - Respiratory Rate - - Oxygen Saturation - - Inhaled Oxygen Concentration - - Weight 108 kg (237 lb 11.2 oz) 01/12/2024 11:50 AM EDT Height 185.4 cm (6' 1 ) 01/12/2024 11:50 AM EDT Body Mass Index 31.36 01/12/2024 11:50 AM EDT Plan of Treatment Upcoming Encounters Date Type Department Care Team (Latest Contact Info) Description 11/28/2024 8:10 AM EST Anticoagulation - Warfarin Visit [facility] - [address] [phone] 12/01/2024 8:00 AM EST Anticoagulation - Warfarin Visit Coumadin [facility] - [address] [phone] Health Maintenance Due Date Last Done Comments Hepatitis B Vaccines (1 of 3 - 19+ 3-dose series) 1992 DTaP,Tdap,and Td Vaccines (2 - Td or Tdap) 01/11/2022 01/12/2012 Colorectal Cancer Screening: Colonoscopy 09/04/2022 Depression Screening 09/04/2022 Social Influencers of Health Screening 09/04/2022 Pneumococcal Vaccine: 50+ Years (1 of 1 - PCV) 2023 Zoster Vaccines (1 of 2) 2023 COVID-19 Vaccine (4 - season) 2024 02/20/2022, 01/23/2021, 01/02/2021 Influenza Vaccine (#1) 2024 , 08/03/2017, 08/02/2013, Additional history exists Cholesterol Screening (Lipid Panel) 08/30/2028 08/30/2023 HIV Screening Completed 12/13/2018 Hepatitis C Screening Completed 12/13/2018 HIB Vaccines Aged Out No longer eligi ble based on patient's age to complete this topic HPV Vaccines Aged Out No longer eligi ble based on patient's age to complete this topic Hepatitis A Vaccines Aged Out No long er eligible based on patient's age to complete this topic IPV Vaccines Aged Out No longer eligi ble based on patient's age to complete this topic MMR Vaccines Aged Out No longer eligi ble based on patient's age to complete this topic Meningococcal ACWY Vaccine Aged Out N o longer eligible based on patient's age to complete this topic Meningococcal B Vacine Aged Out No lo nger eligible based on patient's age to complete this topic Pneumococcal Vaccine: Pediatrics (0 to 5 Years) and At-Risk Patients (6 to 64 Years) Aged Out No longer eligible based on patient's age to complete this topic RSV Immunization Patients Under 20 months Aged Out No longer eligible based on patient's age to complete this topic Varicella Vaccines Aged Out No longer eligible based on patient's age to complete this topic Procedures Procedure Name Priority Date/Time Associated Diagnosis Comments POC PROTIME INR BLOOD Routine 11/17/2024 Heterozygous factor V Leiden mutation (CMS/HCC) Pulmonary embolism, unspecified chronicity, unspecified pulmonary embolism type, unspecified whether acute cor pulmonale present (CMS/HCC) residential (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 POC PROTIME INR BLOOD Routine 10/27/2024 Heterozygous factor V Leiden mutation (CMS/HCC) Pulmonary embolism, unspecified chronicity, unspecified pulmonary embolism type, unspecified whether acute cor pulmonale present (CMS/HCC) residential (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 POC PROTIME INR BLOOD Routine 10/20/2024 Heterozygous factor V Leiden mutation (CMS/HCC) Pulmonary embolism, unspecified chronicity, unspecified pulmonary embolism type, unspecified whether acute cor pulmonale present (CMS/HCC) 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 POC PROTIME INR BLOOD Routine 10/18/2024 Heterozygous factor V Leiden mutation (CMS/HCC) Pulmonary embolism, unspecified chronicity, unspecified pulmonary embolism type, unspecified whether acute cor pulmonale present (CMS/HCC) residential (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 POC PROTIME INR BLOOD Routine 10/04/2024 Heterozygous factor V Leiden mutation (CMS/HCC) Pulmonary embolism, unspecified chronicity, unspecified pulmonary embolism type, unspecified whether acute cor pulmonale present (CMS/HCC) 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 Pathologist [facility] Lot Number INR POC 2.9 Prothrombin Time POC Exp Date Blood 11/17/2024 Alexys Baumann MD POINT OF CARE TEST ENTER/EDIT O RDERABLES Final Result * (ABNORMAL) Lipid panel (08/30/2023) Pathologist [facility] LDL/HDL Ratio 5(A) 0 - 4 Triglycerides 327(A) 0 - 150 mg/dL Cholesterol 225(A) 0 - 200 mg/dL HDL 45 >=40 mg/dL LDL Cholesterol 115(A) 0 - 100 mg/dL Blood Venous blood specimen / Unknown Historical Provider LAB BLOOD ORDERABLES Aileen l Result * HIV Screening (12/13/2018) Pathologist [facility] HIV Screening Abstracted Historical Daphney [facility] Final Result * Hepatitis C Screening (12/13/2018) Pathologist [facility] Hepatitis C Screening Abstracted Historical Provider HEALTH MAINTENANCE Final Result from Last 3 Months or Most Recently Relevant to Health Maintenance Insurance [facility] Care Teams Scrapper Relationship Specialty Start Date End Date Alexys Baumann MD [address] [place] [id number] PCP - General Internal Medicine 08/15/24
--- OUTSIDE RECORDS SUMMARY | 2024-11-21 17:59 | XMS_ITS | Encounter Summary ---
Author Organization [facility] Address [address] [place] [phone] Care Team Providers Care Head Doffer Name Role Phone Alexys Baumann MD Primary Care Provider Encounter Details Date Type Department Care Team (Latest Contact Info) Description 10/20/2024 1:30 PM EST Anticoagulation - Warfarin Visit Coumadin [address] [phone] Heterozygous factor V Leiden mutation (CMS/HCC) (Primary Dx); Pulmonary embolism, unspecified chronicity, unspecified pulmonary embolism type, unspecified whether acute cor pulmonale present (CMS/HCC); alf (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 Social History Tobacco [...] AM EST Anticoagulation - Warfarin Visit Coumadin [address] [phone] 12/01/2024 8:00 AM EST Anticoagulation - Warfarin Visit Coumadin [address] [phone] documented as of this encounter Procedures Procedure Name Priority Date/Time Associated Diagnosis Comments POC PROTIME INR BLOOD Routine 10/20/2024 Heterozygous factor V Leiden mutation (CMS/HCC) Pulmonary embolism, unspecified chronicity, unspecified pulmonary embolism type, unspecified whether acute cor pulmonale present (CMS/HCC) termination clerk (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 documented in this encounter Results * POC Protime INR Blood (10/20/2024) Lot Number INR POC 2.1 Prothrombin Time POC Exp Date Blood 10/20/2024 Alexys Baumann MD POINT OF CARE TEST ENTER/EDIT O RDERABLES Edited Result - Final documented in this encounter Visit Diagnoses Diagnosis Heterozygous factor V Leiden mutation (CMS/[facility])- Primary Primary hypercoagulable state Pulmonary embolism, unspecified chronicity, unspecified pulmonary embolism type, unspecified whether acute cor pulmonale present (CMS/HCC) termination clerk (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 Long-term (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 documented in this encounter Care Teams Head Doffer Relationship Specialty Start Date End Date Alexys Baumann MD [address] [place] [phone] PCP - General Internal Medicine 08/15/24 documented as of this encounter
--- OUTSIDE RECORDS SUMMARY | 2024-11-21 17:59 | XMS_ITS | Encounter Summary ---
Author Organization [facility] Address [address] [place] [phone] Care Team Providers Care Global Marketing Manager Name Role Phone Alexys Baumann MD Primary Care Provider Encounter Details Date Type Department Care Team (Latest Contact Info) Description 10/27/2024 2:10 PM EST Anticoagulation - Warfarin Visit Coumadin [address] [phone] Heterozygous factor V Leiden mutation (CMS/HCC) (Primary Dx); Pulmonary embolism, unspecified chronicity, unspecified pulmonary embolism type, unspecified whether acute cor pulmonale present (CMS/HCC); USP (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 Social History Tobacco [...] AM EST Anticoagulation - Warfarin Visit Coumadin [address] [phone] 12/01/2024 8:00 AM EST Anticoagulation - Warfarin Visit Coumadin [address] [phone] documented as of this encounter Procedures Procedure Name Priority Date/Time Associated Diagnosis Comments POC PROTIME INR BLOOD Routine 10/27/2024 Heterozygous factor V Leiden mutation (CMS/HCC) Pulmonary embolism, unspecified chronicity, unspecified pulmonary embolism type, unspecified whether acute cor pulmonale present (CMS/HCC) 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 documented in this encounter Results * POC Protime INR Blood (10/27/2024) Lot Number INR POC 3.4 Prothrombin Time POC Exp Date Blood 10/27/2024 Alexys Baumann MD POINT OF CARE TEST ENTER/EDIT O RDERABLES Final Result documented in this encounter Visit Diagnoses Diagnosis Heterozygous factor V Leiden mutation (CMS/HCC)- Primary Primary hypercoagulable state Pulmonary embolism, unspecified chronicity, unspecified pulmonary embolism type, unspecified whether acute cor pulmonale present (CMS/HCC) USP (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 Long-term (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 documented in this encounter Care Teams Global Marketing Manager Relationship Specialty Start Date End Date Alexys Baumann MD [address] [place] [phone] PCP - General Internal Medicine 08/15/24 documented as of this encounter
--- OUTSIDE RECORDS SUMMARY | 2024-11-21 18:00 | XMS_ITS | Encounter Summary ---
Author Organization [facility] Address [address] [place] [address] Care Team Providers Care Spool Winder Name Role Phone Pramod Lord MD Primary Care Provider [phone] Jose Juan Rodriguez DO Primary Care Provider Eva Alexys Wright MD Primary Care Provider [phone] Encounter Details Date Type Department Care Team Description 07/04/2020 Heavy Mobile Equipment Repairer Report Medical Records [address] [place] [phone] Jenise Salazar MD Social History Tobacco Use [...] have Coronavirus / COVID-19? No / Unsure 06/24/2020 7:48 AM EDT documented as of this encounter Plan of Treatment Not on file documented as of this encounter Visit Diagnoses Not on filedocumented in this encounter Care Teams Spool Winder Relationship Specialty Start Date End Date Pramod Lord MD [address] [place] [phone] PCP - General Internal Medicine 04/06/18 01/28/21 Jose Juan Rodriguez DO [address] [place] [address] PCP - General Internal Medicine 01/29/21 07/21/21 Alexys Baumann MD [address] [place] [phone] PCP - General Internal Medicine 07/22/21 documented as of this encounter
--- OUTSIDE RECORDS SUMMARY | 2024-11-21 18:00 | XMS_ITS | Encounter Summary ---
Author Organization [facility] Address [address] [place] [address] Care Team Providers Care Merchandising Director Name Role Phone David Sanchez MD Primary Care Provider Eva vailable Gerry Fayeabela DO Primary Care Pro vider Unavailable Pramod Lord MD Primary Care Provider + [phone] Fannie Faye DO Primary Care Pro vider Unavailable Pramod Lord MD Primary Care Provider + [phone] Eron Small Primary Care Provider Eva vailable Pramod Lord MD Primary Care Provider + [phone] Elma Yan Fannie DO Primary Care Pro vider Unavailable Jose Juan Rodriguez DO Primary Care Provider Eva vailable Alexys Baumann MD Primary Care Provider [phone] Reason for Visit * Reason Onset Date Comments REFERRAL 2012 Encounter Details Date Type Department Care Team Description 2012 Telephone Adult Medicine [address] [address] David Sanchez MD REFERRAL Social History Tobacco Use Types Packs/Day Years [...] encounter Miscellaneous Notes * Telephone Encounter - Flaquita Medina - 2012 3:37 PM EDT Pt was put on the Orthopedic referrals report for joint pain right shoulder; pt was called and a letter was sent; pt has not responded. documented in this encounter Plan of Treatment Not on file documented as of this encounter Visit Diagnoses Not on filedocumented in this encounter Care Teams Merchandising Director Relationship Specialty Start Date End Date David Sanchez MD PCP - General 08/14/08 08/26/13 Fannie Faye DO PCP - General Internal Medicine 12/06/14 05/26/15 Pramod Lord MD [address] [place] [phone] PCP - General Internal Medicine 05/27/15 08/15/15 Fannie Faye DO PCP - General Internal Medicine 08/16/15 09/03/15 Pramod Lord MD [address] [place] [phone] PCP - General Internal Medicine 09/04/15 12/17/17 Eron Small [address] [place] [phone] PCP - General Pulmonology 12/18/17 04/05/18 Pramod Lord MD [address] [place] [phone] PCP - General Internal Medicine 04/06/18 01/28/21 Fannie Faye, PCP - General 08/27/13 12/05/14 Jose Juan Rodriguez DO [address] [place] [phone] PCP - General Internal Medicine 01/29/21 07/21/21 Alexys Baumann MD [address] [place] [address] PCP - General Internal Medicine 07/22/21 documented as of this encounter
--- OUTSIDE RECORDS SUMMARY | 2024-11-21 18:00 | XMS_ITS | Encounter Summary ---
Author Organization [facility] Address [address] [place] [address] Care Team Providers Care Tablet Machine Operator Name Role Phone Alexys Baumann MD Primary Care Provider [phone] Encounter Details Date Type Department Care Team Description 12/24/2023 Rest Room Matron Report Medical Records [address] [place] [address] Juan Daniel Quijano MD Social History Tobacco Use Types Packs/Day [...] on filedocumented in this encounter Care Teams Tablet Machine Operator Relationship Specialty Start Date End Date Alexys Baumann MD [address] [place], [place] [phone] PCP - General Internal Medicine 07/22/21 documented as of this encounter
--- OUTSIDE RECORDS SUMMARY | 2024-11-21 18:00 | XMS_ITS | Encounter Summary ---
Author Organization [facility] Address [address] [place] [address] Care Team Providers Care Regional Education Manager Name Role Phone Pramod Lord MD Primary Care Provider + [phone] Eron Small Primary Care Provider Eva vailable Pramod Lord MD Primary Care Provider + [phone] Jose Juan Rodriguez DO Primary Care Provider Eva vailable Alexys Baumann MD Primary Care Provider [phone] Encounter Details Date Type Department Care Team Description 08/13/2016 Editor In Chief Report Medical Records [address] [place] [id number] Jenise Salazar MD Social History Tobacco Use [...] on filedocumented in this encounter Care Teams Regional Education Manager Relationship Specialty Start Date End Date Pramod Lord MD [address] [place] [address] [phone] PCP - General Internal Medicine 09/04/15 12/17/17 Eron Small [address] [place] [phone] PCP - General Pulmonology 12/18/17 04/05/18 Pramod Lord MD [address] [place] [phone] PCP - General Internal Medicine 04/06/18 01/28/21 Jose Juan Rordiguez DO [address] [place] [phone] PCP - General Internal Medicine 01/29/21 07/21/21 Alexys Baumann MD [address] [place] [phone] PCP - General Internal Medicine 07/22/21 documented as of this encounter
--- OUTSIDE RECORDS SUMMARY | 2024-11-21 18:00 | XMS_ITS | Clinical Summary ---
Author Organization [facility] Address [address] [place] [address] Care Team Providers Care Utilization Review Nurse Name Role Phone Alexys Baumann MD Primary Care Provider [phone] Allergies Active Allergy Reactions Severity Noted Date Comments Pravastatin 06/24/2016 Myalgias Acetaminophen-Codeine Nausea and Vomiting Medium 09/24 Caused nausea and vimiting Medications Medication Sig Dispensed Refills Start Date End Date Status lorazepam (ATIVAN) 0.5 MG tablet TAKE 1 TABLET BY MOUTH EVERY DAY NEEDED FOR ANXIETY 0 2 Active Thiamine HCl (B-1 OR)Indications: TOMMIE (obstructive sleep apnea) Take 1 Tablet by mouth daily. 0 Active Ascorbic Acid (VITAMIN C OR) Take 1 Tablet by mouth daily. 0 Active diazepam (Valium) 2 MG tablet Take 1 Tablet by mouth every 8 hours as needed for Anxiety for up to 10 days. 60 Tablet 0 3 Active warfarin (COUMADIN) 5 MG tablet Take 1-3 Tablets by mouth daily. May cause heavy bleeding. Take at same time every day. Do not change dietary habits. 270 Tablet 1 4 Active Scopolamine 1 MG/3DAYS PATCH [address] 1 Patch onto the skin every [address] 4 hours prior to embarkation and change every 3 days until final disembarkation 10 Patch 0 4 Active hydrOXYzine (ATARAX) 50 MG tablet TAKE 1 TABLET BY MOUTH FOUR TIMES A DAY 360 Tablet 1 4 Active Enoxaparin Sodium (Lovenox) 100 MG/ML Solution Prefilled Syringe Inject 100 mg as directed 2 times daily. 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 Stanford that we will need to do the followin. New sleep study to determine if with the weight loss his symptoms have decreased. In that case we will do a sleep study to see if he needs new parameters for the CPAP 2. We gave him the phone number from [employer] to call them to review the machine 3. I will see him back after the studies have been done. 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 Overview: Testing pending however a strong family history, Sister sudden age 35,Multiple family members with factor V deficiency, patient with recent hospitalization for pulmonary embolism Resolved Problems Problem Noted Date Resolved Date SVT (supraventricular tachyc ardia) ([facility] 11/22/17 CHEMICALLY CARDIVERTED 11/26/2017 11/26/2017 Impaired fasting glucose 04/20/2017 018 Hyperlipidemia LDL goal < 130 01/13/2013 Overview: IMO update TOMMIE (obstructive sleep apnea) 01/13/2013 Immunizations Name Administration Dates Next Due COVID-19 (Pfizer) 01/23/2021,01/02/2021 Influenza (> 6 Months) 08/02/2013,2011,08/24/2011, 010 Influenza H1N1 Pandemic Flu Vaccine 09/16/2009 Influenza Vaccine-preservati ve Free-quadrivalent 4 Years 12/04/2021 Influenza Vaccine-quadrivale nt 4 Years Plus 08/03/2017 Tdap 01/12/2012 Family History Medical History Relation Name Comments CAD Father Diabetes Father Other Father EMPHYSEMA, THRO AT CANCER. lung ca aneurysm, brain Father Cancer, Other Mother LEUKEMIA Diabetes Paternal Grandfather pulmonary embolism Sister 3 33 Relation Name Status Comments Brother Alive Father Alive heart Mother Alive leukemia Paternal Grandfather Sister 1 FACTOR 5 DEF, Sister 2 Alive also some 1/2 s ibs Sister 3 Social History Tobacco Use Types Packs/Day Years Used Date Smoking Tobacco: Never Smokeless Tobacco: Never Tobacco Cessation:Counseling Given: Not Answered Alcohol Use Standard Drinks/Week Comments Not Currently 0 (1 standard drink = 0.6 oz pure alcohol) SOCIAL; less than one per week Sex Assigned at Date Recorded Not on file Job Start Date Occupation Industry Not on file Not on file Not on file Last Filed Vital Signs Vital Sign Reading Time Taken Comments Blood Pressure 112/60 01/12/2024 11:50 AM EDT Pulse 68 01/12/2024 11:50 AM EDT Temperature 35.7 ??C (96.3 ??F) 01/12/2024 1 1:50 AM EDT Respiratory Rate 12 01/12/2024 11:5 0 AM EDT Oxygen Saturation 98% 09/07/2023 2:58 PM EST Inhaled Oxygen Concentration - - Weight 107.8 kg (237 lb 11.2 oz) 2023 11:50 AM EDT Height 185.4 cm (6' 1 ) 01/12/2024 11:5 0 AM EDT Body Mass Index 31.36 01/12/2024 11:50 AM EDT Plan of Treatment Health Maintenance Due Date Last Done Comments BASELINE HEALTH EXAM 40-64 2013 04/26/2012, DTAP/TDAP/TD (2 - Td or Tdap) 01/11/2022 01/12/2012 COLON CANCER SCREENING 2023 SHINGLES VACCINE (1 of 2) 2023 Covid-19 Vaccine (3 - 2022-2 4 season) 2024 01/23/2021, 01/02/2021 INFLUENZA (#1) 2024 12/04/2021, 11/03/2017, 08/02/2013, Additional history exists BMI CHECK/ADVISE 09/27/2024 01/20/2023, 10/2022, 12/04/2021, Additional history exists DEPRESSION SCREENING/FOLLOWUP 09/27/2024, 08/26/2020, 04/26/2020, Additional history exists SOCIAL NEEDS SCREENING 09/27/2024 CHOLESTEROL SCREENING 08/30/2028 08/30/2023 , 12/04/2021, 12/13/2018, Additional history exists PNEUMOCOCCAL VACCINE FOR HIG H RISK PATIENTS (#1) 2038 Care Teams Utilization Review Nurse Relationship Specialty Start Date End Date Alexys Baumann MD [address] [place] [address] PCP - General Internal Medicine 07/22/21
--- OUTSIDE RECORDS SUMMARY | 2024-11-21 18:00 | XMS_ITS | Encounter Summary ---
Author Organization [facility] Address [address] [place] [address] Care Team Providers Care Administrative Operations Coordinator Name Role Phone Pramod Lord MD Primary Care Provider [phone] Jose Juan Rodriguez DO Primary Care Provider Eva Alexys Wright MD Primary Care Provider [phone] Reason for Visit * Reason Onset Date Comments Provider Call Back 03/20/2019 Encounter Details Date Type Department Care Team Description 03/20/2019 Telephone Adult Medicine [facility] [address] [place] [address] Theo Arreola FNP [address] [place], [place] [phone] Provider Call Back Social History Tobacco Use Types Packs/Day Years [...] encounter Miscellaneous Notes * Telephone Encounter - Katy Jackson M.A. - 03/20/2019 10:00 AM EDT Called pt to asked what was his concern and said he is only going to speak with Theo LE and hang up, please call pt * Telephone Encounter - Jessica Oh - 03/20/2019 9:46 AM EDT Caller requesting call back from provider: Is the caller the patient? YES If caller is not the patient, what is the callers name? N/A Callers relationship to patient? N/A If person calling is not the patient themselves, is there a verbal release in FYI or permanent comments for this person: NO Reason for call back: Patient would like Nga to call him back. States this is regarding a letter about his recent test results. Caller offered to speak with the nurse for assistance: Yes Response: Patient offered to speak with nurse to assist them: refused offer documented in this encounter Plan of Treatment Not on file documented as of this encounter Visit Diagnoses Not on filedocumented in this encounter Care Teams Administrative Operations Coordinator Relationship Specialty Start Date End Date Pramod Lord MD [address] [place] [address] PCP - General Internal Medicine 04/06/18 01/28/21 Jose Juan Rodriguez DO [address] [place] [address] PCP - General Internal Medicine 01/29/21 07/21/21 Alexys Baumann MD [address] [place] [address] PCP - General Internal Medicine 07/22/21 documented as of this encounter
--- OUTSIDE RECORDS SUMMARY | 2024-11-21 18:00 | XMS_ITS | Encounter Summary ---
Author Organization [facility] Address [address] [place] [address] Care Team Providers Care Cabinet Mounter Name Role Phone Alexys Baumann MD Primary Care Provider [phone] Encounter Details Date Type Department Care Team Description 05/13/2022 Supervisor Park Workers Report Medical Records [address] [place] [id number] Abstract, Provider Social History Tobacco Use Types [...] suspected to have Coronavirus/COVID-19? No / Unsure 05/07/2022 8:12 AM EDT documented as of this encounter Plan of Treatment Not on file documented as of this encounter Visit Diagnoses Not on filedocumented in this encounter Care Teams Cabinet Mounter Relationship Specialty Start Date End Date Alexys Baumann MD [address] [place] [phone] PCP - General Internal Medicine 07/22/21 documented as of this encounter
--- OUTSIDE RECORDS SUMMARY | 2024-11-21 18:00 | XMS_ITS | Encounter Summary ---
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 of 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 therapy Preoperative examination Pulmonary embolism and infarction (HCC) Primary hypercoagulable state (HCC) 20 Occurrences starting 02/04/2023 until 05/05/2023 [place] COLLECTION CAPILLARY BLOOD SPECIMEN Lab Routine half-way current use of 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 therapy Preoperative examination Pulmonary embolism and infarction (HCC) Primary hypercoagulable state (HCC) 8 Occurrences starting 02/04/2023 until 02/18/2023 CHG PROTHROMBIN TIME Lab Routine 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 of 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 therapy Preoperative examination Pulmonary embolism and infarction (HCC) Primary hypercoagulable state (HCC) 8 Occurrences starting 02/04/2023 until 02/18/2023 documented as of this encounter Visit Diagnoses Diagnosis half-way current use of 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 therapy Preoperative examination Preoperative examination, unspecified Pulmonary embolism and infarction (HCC) Other pulmonary embolism and infarction Primary hypercoagulable state (HCC) Primary hypercoagulable state documented in this encounter Care Teams It Security Consultant Relationship Specialty Start Date End Date Alexys Baumann MD [address] [place] [address] PCP - General Internal Medicine 07/22/21 documented as of this encounter
--- OUTSIDE RECORDS SUMMARY | 2024-11-21 18:00 | XMS_ITS | Encounter Summary ---
Author Organization [facility] Address [address] [place] [address] Care Team Providers Care Audit Associate Name Role Phone David Khanna MD Primary Care Provider Eva vailable Elma Yan Fannie DO Primary Care Pro vider Unavailable Pramod Lord MD Primary Care Provider [phone] Gerry Fayeabela DO Primary Care Pro vider Unavailable Pramod Lord MD Primary Care Provider [phone] Eron Small Primary Care Provider Eva vailable Pramod Lord MD Primary Care Provider [phone] Elma Yan Fannie DO Primary Care Pro vider Unavailable Jose Juan Rodriguez DO Primary Care Provider Eva vailable Alexys Baumann MD Primary Care Provider [phone] Reason for Visit * Reason Onset Date Comments Walk In 06/15/2011 Encounter Details Date Type Department Care Team Description 06/15/2011 Telephone Adult Medicine [address] [address] David Khanna MD Walk In Social History Tobacco Use Types Packs/Day Years Used Date Smoking Tobacco: Never Alcohol Use Standard Drinks/Week Comments Not Asked 0 (1 standard drink = 0.6 oz pur e alcohol) Sex Assigned at Date Recorded Not on file Job Start Date Occupation Industry Not on file Not on file Not on file documented as of this encounter Miscellaneous Notes * Telephone Encounter - Ligia Tafoya R.N. - 06/15/2011 11:59 AM EDT Pt has had cough for 5 Days C/O chest wall pain with deep breath and cough, denies SOB, able to speak in full sentences and hasno audible wheezing, cough is productive for yellow Sputum, denies fever (has not taken temp) able to take PO with no difficulty, denies N/V/D, Advised homecare following the cough Protocol. RN reinforced telephone consultation and advice. Reviewed with the patient the signs and symptoms to watch for that would require immediate attention. If symptoms change, worsen or increase in intensity, to call back immediately. Appointment now with dr khanna [phone]/67 * Telephone Encounter - Ligia Tafoya R.N. - 06/15/2011 11:25 AM EDT Pt to clinic, eran [facility]ie[facility] on retrun * Telephone Encounter - Valarie Gabriel - 06/15/2011 10:58 AM EDT Symptoms patient is presenting: Patient is stating when he lays down he feels like he has fluid in his lungs. Patient is in the waiting area. How long has patient had these symptoms?: Since last wed PCP: David Khanna MD Payor: [employer] HEALTH Plan: DrAvailable $0 [id number] [id number] Product Type: MEDICAID [id number] documented in this encounter Plan of Treatment Not on file documented as of this encounter Visit Diagnoses Not on filedocumented in this encounter Care Teams Audit Associate Relationship Specialty Start Date End Date David Khanna MD PCP - General 08/14/08 08/26/13 Fannie Faye DO PCP - General Internal Medicine 12/06/14 05/26/15 Pramod Lord MD [address] [place] [address] PCP - General Internal Medicine 05/27/15 08/15/15 Fannie Faye, PCP - General Internal Medicine 08/16/15 09/03/15 Pramod Lord MD [address] [place] [phone] PCP - General Internal Medicine 09/04/15 12/17/17 Eron Small [address] [place] [address] PCP - General Pulmonology 12/18/17 04/05/18 Pramod Lord MD [address] [place] [address] PCP - General Internal Medicine 04/06/18 01/28/21 Fannie Faye, PCP - General 08/27/13 12/05/14 Jose Juan Rodriguez DO [address] [place] [address] PCP - General Internal Medicine 01/29/21 07/21/21 Alexys Baumann MD [address] [place] [address] PCP - General Internal Medicine 07/22/21 documented as of this encounter
--- OUTSIDE RECORDS SUMMARY | 2024-11-21 18:00 | XMS_ITS | Encounter Summary ---
Author Organization [facility] Address [address] [place] [address] Care Team Providers Care Tube And Rod Straightener Name Role Phone Alexys Baumann MD Primary Care Provider [phone] Reason for Referral * Radiology Services (Routine) - Authorized/Booked Specialty Diagnoses / Procedures Referred By Sirisha jc Referred To Contact Radiology Diagnoses Neck pain Displacement of cervical intervertebral disc without myelopathy Procedures MRI OF CERVICAL SPINE NO CONTRAST Alexys Baumann MD [address] [place] [address] [facility]/[address] [address] Referral ID Status Reason Start Date Expiration Date V isits Requested Visits Authorized [id number] Authorized/B ooked 10/09/2021 04/07/2023 1 1 Reason for Visit * Reason Onset Date Comments Junior Architect Feedback 10/08/2022 MRI Encounter Details Date Type Department Care Team Description 10/08/2022 Telephone Adult Medicine [address] [phone] Alexys Baumann MD [address] [place] [phone] Junior Architect Feedback (MRI) Social History Tobacco Use Types Packs/Day Years [...] suspected to have Coronavirus/COVID-19? No / Unsure 10/05/2022 8:02 AM EST documented as of this encounter Miscellaneous Notes * Telephone Encounter - Alexys Baumann MD - 10/08/2022 6:17 PM EST I [address] place the order for the mri again once it is completed hopefully we will be able to get the referral approved * Telephone Encounter - Larisa John - 10/08/2022 10:10 AM EST Cristhianrjennifer, I am trying to get pt an appointment with Stephan Diego MD for his neurosurgery referral back in january. I have talked to [facility], pt needs to have a MRI done in order to get scheduled. I do see one was ordered but its a future order and does not look like He has an appointment scheduled for it yet. Please Advise. Thank You Larisa. documented in this encounter Plan of Treatment Not on file documented as of this encounter Results * MRI OF CERVICAL SPINE NO CONTRAST (10/16/2022) Alexys Baumann MD MRI Performing Organization Address City/State/[facility] Co de Phone Number [facility] [address] documented in this encounter Visit Diagnoses Diagnosis Neck pain- Primary Cervicalgia Displacement of cervical intervertebral disc without myelopathy documented in this encounter Care Teams Tube And Rod Straightener Relationship Specialty Start Date End Date Alexys Baumann MD [address] [place] [phone] PCP - General Internal Medicine 07/22/21 documented as of this encounter
--- OUTSIDE RECORDS SUMMARY | 2024-11-21 18:00 | XMS_ITS | Encounter Summary ---
Author Organization [facility] Address [address] [place] [address] Care Team Providers Care Reinforcing Steel Placer Name Role Phone David Sanchez MD Primary Care Provider Eva vailable Fannie Faye DO Primary Care Pro vider Unavailable Pramod Lord MD Primary Care Provider [phone] Fannie Faye DO Primary Care Pro vider Unavailable Pramod Lord MD Primary Care Provider [phone] Eron Small Primary Care Provider Eva vailable Pramod Lord MD Primary Care Provider [phone] Fannie Faye DO Primary Care Pro vider Unavailable Jose Juan Rodriguez DO Primary Care Provider Eva vailable Alexys Baumann MD Primary Care Provider [phone] Reason for Visit * Reason Onset Date Comments REFERRAL 01/20/2013 Encounter Details Date Type Department Care Team Description 01/20/2013 Telephone [facility] [address] [place] [address] Rhys Kamara MD REFERRAL Social History Tobacco Use Types [...] encounter Miscellaneous Notes * Telephone Encounter - Opal Pak - 01/20/2013 9:16 AM EDT FYI ONLY. Called pt 12/20/12, 12/27/12, and sent letter 01/03/13 with no response. I am removing this pt's order from the sleep study schedule. Order expires 12/19/13,[facility]/ AUTHORIZATION REQUIRED. documented in this encounter Plan of Treatment Not on file documented as of this encounter Visit Diagnoses Not on filedocumented in this encounter Care Teams Reinforcing Steel Placer Relationship Specialty Start Date End Date David Sanchez MD PCP - General 08/14/08 08/26/13 Fannie Faye DO PCP - General Internal Medicine 12/06/14 05/26/15 Pramod Lord MD [address] [place] [address] PCP - General Internal Medicine 05/27/15 08/15/15 Fannie Faye DO PCP - General Internal Medicine 08/16/15 09/03/15 Pramod Lord MD [address] [place] [address] PCP - General Internal Medicine 09/04/15 12/17/17 Eron Small [address] [place] [address] PCP - General Pulmonology 12/18/17 04/05/18 Pramod Lord MD [address] [place] [address] PCP - General Internal Medicine 04/06/18 01/28/21 Fannie Faye DO PCP - General 08/27/13 12/05/14 Jose Juan Rodriguez DO [address] [place] [address] PCP - General Internal Medicine 01/29/21 07/21/21 Alexys Baumann MD [address] [place], [place] [address] [address] PCP - General Internal Medicine 07/22/21 documented as of this encounter
--- OUTSIDE RECORDS SUMMARY | 2024-11-21 18:00 | XMS_ITS | Encounter Summary ---
Author Organization [facility] Address [address] [place] [address] Care Team Providers Care Public Accountant Name Role Phone Alexys Baumann MD Primary Care Provider [phone] Encounter Details Date Type Department Care Team Description 04/05/2023 Real Estate Consultant Report Medical Records [address] [place] [address] Juan Daniel Quijano MD Social History Tobacco [...] suspected to have Coronavirus/COVID-19? No / Unsure 03/25/2023 7:50 AM EDT documented as of this encounter Plan of Treatment Not on file documented as of this encounter Visit Diagnoses Not on filedocumented in this encounter Care Teams Public Accountant Relationship Specialty Start Date End Date Alexys Baumann MD [address] [place] [address] PCP - General Internal Medicine 07/22/21 documented as of this encounter
--- OUTSIDE RECORDS SUMMARY | 2024-11-21 18:00 | XMS_ITS | Encounter Summary ---
Author Organization [facility] Address [address] [place] [address] Care Team Providers Care Assembler Engine Name Role Phone Alexys Baumann MD Primary Care Provider [phone] Reason for Visit * Reason Onset Date Comments DME Request 01/20/2023 Encounter Details Date Type Department Care Team Description 01/20/2023 Telephone Pulmonology - [address] [place] [address] Alexandr Escalante MD DME Request Social History Tobacco Use Types Packs/Day [...] suspected to have Coronavirus/COVID-19? No / Unsure 01/20/2023 9:58 AM EDT documented as of this encounter Miscellaneous Notes * Telephone Encounter - Bessy Kearney - 01/20/2023 11:34 AM EDT Pressure order sent to [facility], confirmation received documented in this encounter Plan of Treatment Not on file documented as of this encounter Visit Diagnoses Not on filedocumented in this encounter Care Teams Assembler Engine Relationship Specialty Start Date End Date Alexys Baumann MD [address] [place] [address] [phone] PCP - General Internal Medicine 07/22/21 documented as of this encounter
--- OUTSIDE RECORDS SUMMARY | 2024-11-21 18:00 | XMS_ITS | Encounter Summary ---
Author Organization [facility] Address [address] [place] [address] Care Team Providers Care Oral Surgeon Name Role Phone Alexys Baumann MD Primary Care Provider [phone] Encounter Details Date Type Department Care Team Description 10/15/2023 Utility Worker Driver Report Medical Records [address] [place] [address] Juan Daniel Quijano MD Social History Tobacco [...] on filedocumented in this encounter Care Teams Oral Surgeon Relationship Specialty Start Date End Date Alexys Baumann MD [address] [place], [place] [phone] PCP - General Internal Medicine 07/22/21 documented as of this encounter
--- OUTSIDE RECORDS SUMMARY | 2024-11-21 18:00 | XMS_ITS | Encounter Summary ---
Author Organization [facility] Address [address] [place] [address] Care Team Providers Care Assembler Bonding Name Role Phone Fannie Faye DO Primary Care Pro vider Unavailable Pramod Lord MD Primary Care Provider + [phone] Fannie Faye DO Primary Care Pro vider Unavailable Pramod Lord MD Primary Care Provider + [phone] Eron Small Primary Care Provider Eva vailable Pramod Lord MD Primary Care Provider + [phone] Jose Juan Rodriguez DO Primary Care Provider Eva vailable Alexys Baumann MD Primary Care Provider [phone] Reason for Visit * Reason Onset Date Comments Stress Test 03/28/2015 Encounter Details Date Type Department Care Team Description 03/28/2015 Telephone Cardiology - [address] [phone] Fannie Faye DO Stress Test Social History Tobacco Use Types Packs/Day Years [...] encounter Miscellaneous Notes * Telephone Encounter - Ирина Nguyen - 03/28/2015 2:06 PM EDT Abdoulaye Suarez has not responded to the telephone calls that were made on 03/12/15 and 03/18/15 as well as the letter that was sent on 03/20/15 to schedule a Stress Test; therefore we are removing the test from our Scheduled Orders Report. Please note that this test must be reordered if required in the future. documented in this encounter Plan of Treatment Not on file documented as of this encounter Visit Diagnoses Not on filedocumented in this encounter Care Teams Assembler Bonding Relationship Specialty Start Date End Date Fannie Faye DO PCP - General Internal Medicine 12/06/14 05/26/15 Pramod Lord MD [address] [place] [address] 5[address]32 PCP - General Internal Medicine 05/27/15 08/15/15 Fannie Faye DO PCP - General Internal Medicine 08/16/15 09/03/15 Pramod Lord MD [address] [place] [address] 03591 PCP - General Internal Medicine 09/04/15 12/17/17 Eron Small [address] [place] [address] 13225 PCP - General Pulmonology 12/18/17 04/05/18 Pramod Lord MD [address] [place] [address] 30838 PCP - General Internal Medicine 04/06/18 01/28/21 Jose Juan Rodriguez DO [address] [place] [address] 39528 PCP - General Internal Medicine 01/29/21 07/21/21 Alexys Baumann MD [address] [place] [address] 52436 PCP - General Internal Medicine 07/22/21 documented as of this encounter
--- OUTSIDE RECORDS SUMMARY | 2024-11-21 18:00 | XMS_ITS | Encounter Summary ---
Author Organization [facility] Address [address] [place] [address] Care Team Providers Care Certified Adapted Physical Educator Name Role Phone Alexys Baumann MD Primary Care Provider [phone] Encounter Details Date Type Department Care Team Description 05/12/2024 Street Light Lamp Cleaner Report Medical Records [address] [place] [address] Juan Daniel Quijano MD Social History Tobacco [...] on filedocumented in this encounter Care Teams Certified Adapted Physical Educator Relationship Specialty Start Date End Date Alexys Baumann MD [address] [place], [place] [phone] PCP - General Internal Medicine 07/22/21 documented as of this encounter
--- OUTSIDE RECORDS SUMMARY | 2024-11-21 18:00 | XMS_ITS | Encounter Summary ---
Author Organization [facility] Address [address] [place] [address] Care Team Providers Care Hand Assembler For Puller Over Name Role Phone Pramod Lord MD Primary Care Provider [phone] Jose Juan Rodriguez DO Primary Care Provider Eva Alexys Wright MD Primary Care Provider [phone] Reason for Visit * Reason Comments E-prescribe Rx Request Encounter Details Date Type Department Care Team Description 10/03/2020 Refill Adult Medicine [facility] [address] [place] [address] [phone] Pramod Lord MD [address] [place] [address] [phone] E-prescribe Rx Request Social History Tobacco Use [...] or suspected to have Coronavirus / COVID-19? Unable to assess 09/17/2020 8:01 AM EST documented as of this encounter Miscellaneous Notes * Telephone Encounter - Flaquita Arboleda - 10/03/2020 4:40 PM EST Patient would like script to be: E-PRESCRIBED/FAXED TO PHARMACY WHEN WAS THE PATIENT'S LAST APPOINTMENT IN ADULT MEDICINE? 04/24/2020 WHEN WAS THE LAST TIME THE PATIENT SAW THEIR PCP? 12/08/2018 Does patient have an upcoming appointment? No-unable to reach left voicemaill to call for appointment due to refill request. Appt due (THE MEDICATION REQUESTED IS ON THE MED LIST ABOVE) All of the medications requested were on the CURRENT MEDS list Did you check the Pharmacy information above?: YES Patient wants: 30 -day supply Is this a mail order prescription request ? NO If the refill is from a FAXED refill request what is the RX # listed on the fax? N/A Patients current insurance carrier is: Payor: [employer] / Plan: [employer] INSURANCE / Product Type: OTHER documented in this encounter Plan of Treatment Not on file documented as of this encounter Visit Diagnoses Not on filedocumented in this encounter Care Teams Hand Assembler For Puller Over Relationship Specialty Start Date End Date Pramod Lord MD [address] [place], [place] [phone] PCP - General Internal Medicine 04/06/18 01/28/21 Jose Juan Rodriguez DO [address] [place] [address] PCP - General Internal Medicine 01/29/21 07/21/21 Alexys Baumann MD [address] [place] [address]16 PCP - General Internal Medicine 07/22/21 documented as of this encounter
--- OUTSIDE RECORDS SUMMARY | 2024-11-21 18:00 | XMS_ITS | Encounter Summary ---
Author Organization [facility] Address [address] [place] [address] Care Team Providers Care Manager Of Case Management Name Role Phone Pramod Lord MD Primary Care Provider + [phone] Jose Juan Rodriguez DO Primary Care Provider Eva vailable Alexys Baumann MD Primary Care Provider [phone] Encounter Details Date Type Department Care Team Description 04/25/2020 Forming Department End Finder Report Medical Records [address] [place] [address] Jenise Salazar MD Social History Tobacco Use [...] filedocumented in this encounter Care Teams Manager Of Case Management Relationship Specialty Start Date End Date rPamod Lord MD [address] [place] [address] PCP - General Internal Medicine 04/06/18 01/28/21 Jose Juan Rodriguez DO [address] [place] [address] 5[address] PCP - General Internal Medicine 01/29/21 07/21/21 Alexys Baumann MD [address] [place] [address] [phone] PCP - General Internal Medicine 07/22/21 documented as of this encounter
--- OUTSIDE RECORDS SUMMARY | 2024-11-21 18:00 | XMS_ITS | Encounter Summary ---
Author Organization [facility] Address [address] [place] [address] Care Team Providers Care Home Care Attendant Name Role Phone Pramod Lord MD Primary Care Provider [phone] Jose Juan Rodriguez DO Primary Care Provider Eva shawnilaAlexys Grider MD Primary Care Provider [phone] Encounter Details Date Type Department Care Team Description 09/04/2019 Old Medical Records Medical Records [address] [place] [address] Abstract, Provider Social History Tobacco Use Types [...] on filedocumented in this encounter Care Teams Home Care Attendant Relationship Specialty Start Date End Date Pramod Lord MD [address] [place] [address] 40189 PCP - General Internal Medicine 04/06/18 01/28/21 Jose Juan Rodriguez DO [address] [place] [address] PCP - General Internal Medicine 01/29/21 07/21/21 Alexys Baumann MD [address] [place] [address] [phone] PCP - General Internal Medicine 07/22/21 documented as of this encounter
--- OUTSIDE RECORDS SUMMARY | 2024-11-21 18:00 | XMS_ITS | Encounter Summary ---
Author Organization [facility] Address [address] [place] [address] Care Team Providers Care New Home Sales Consultant Name Role Phone David Khanna MD Primary Care Provider Eva vailable Gerry Fayeabela DO Primary Care Pro vider Unavailable Pramod Lord MD Primary Care Provider + [phone] Fannie Faye DO Primary Care Pro vider Unavailable Pramod Lord MD Primary Care Provider + [phone] Eron Small Primary Care Provider Eva vailable Pramod oLrd MD Primary Care Provider + [phone] Elma Yan Fannie DO Primary Care Pro vider Unavailable Jose Juan Rodriguez DO Primary Care Provider Eva vailable Alexys Baumann MD Primary Care Provider [phone] Reason for Visit * Reason Onset Date Comments pain, chest 01/06/2012 Encounter Details Date Type Department Care Team Description 01/06/2012 Telephone Adult Medicine [address] [address] David Khanna MD pain, chest Social History Tobacco Use Types Packs/Day Years [...] Telephone Encounter - Ligia Tafoya R.N. - 01/06/2012 4:[address] finch will review the echo and enter reading by tomorrow. Message to pt that echo is being reviewed and he should have results by tomorrow. * Telephone Encounter - Ligia Tafoya R.N. - 01/06/2012 3:56 PM EDT Pt states he hd an ECHO done 12/03 and has yet to hear the results. He would like to have another onedone since the results are not available. Explained to pt that I will speak to cardiology and have the results sent to dr khanna for reviewand that someone will call him with the results RADHA Pt is VERY distressed that this has taken so long and is asking for this problem to be taken care of now since he still has pain and has gone over a month with no treatment. * Telephone Encounter - Ligia Tafoya R.N. - 01/06/2012 3:52 PM EDT I left a message for the patient to return my call. * Telephone Encounter - David Khanna MD - 01/06/2012 3:48 PM EDT I do not see results in record * Telephone Encounter - Ligia Tafoya R.N. - 01/06/2012 3:45 PM EDT Pt would like the results of the echo done, when I call to triage him is there anyhting I can tell him about this test? * Telephone Encounter - Mervat Alfaro - 01/06/2012 3:09 PM EDT Symptoms patient is presenting: patient has history of chest pain he is having chest off and on last few days also feels very anxious he is waiting for test results regarding his last Echo pt feels ok to wait for nurse to call dirk How long has patient had these symptoms?: few days PCP: David Khanna MD Payor: [employer] Plan: [employer] $0 [id number] Product Type: MEDICAID [id number] documented in this encounter Plan of Treatment Not on file documented as of this encounter Visit Diagnoses Not on filedocumented in this encounter Care Teams New Home Sales Consultant Relationship Specialty Start Date End Date David Khanna MD PCP - General 08/14/08 08/26/13 Fannie Faye DO PCP - General Internal Medicine 12/06/14 05/26/15 Pramod Lord MD [address] [place] [address] 35182 PCP - General Internal Medicine 05/27/15 08/15/15 Fannie Faye DO PCP - General Internal Medicine 08/16/15 09/03/15 Pramod Lord MD [address] [place] [address] 10224 PCP - General Internal Medicine 09/04/15 12/17/17 Eron Small [address] [place] [address] 16517 PCP - General Pulmonology 12/18/17 04/05/18 Pramod Lord MD [address] [place] [address] 03049 PCP - General Internal Medicine 04/06/18 01/28/21 Fannie Faye DO PCP - General 08/27/13 12/05/14 Jose Juan Rodriguez DO [facility] [place] [address] PCP - General Internal Medicine 01/29/21 07/21/21 Alexys Baumann MD [address] [place] [address] 91498 PCP - General Internal Medicine 07/22/21 documented as of this encounter
--- OUTSIDE RECORDS SUMMARY | 2024-11-21 18:00 | XMS_ITS | Encounter Summary ---
Author Organization [facility] Address [address] [place] [address] Care Team Providers Care Icu Nurse Name Role Phone Fannie Faye DO Primary Care Pro vider Unavailable Pramod Lord MD Primary Care Provider [phone] Fannie Faye DO Primary Care Pro vider Unavailable Pramod Lord MD Primary Care Provider [phone] Eron Small Primary Care Provider Eva vailable Pramod Lord MD Primary Care Provider [phone] Fannie Faye DO Primary Care Pro vider Unavailable Jose Juan Rodriguez DO Primary Care Provider Eva vailable Alexys Baumann MD Primary Care Provider [phone] Encounter Details Date Type Department Care Team Description 08/09/2014 Diamond Die Polisher Report Medical Records [address] [place] [address] Stephan Diego MD Social History Tobacco Use [...] on filedocumented in this encounter Care Teams Icu Nurse Relationship Specialty Start Date End Date Fannie Faye DO PCP - General Internal Medicine 12/06/14 05/26/15 Pramod Lord MD [address] [place] [address] 12263 PCP - General Internal Medicine 05/27/15 08/15/15 Fannie Faye DO PCP - General Internal Medicine 08/16/15 09/03/15 Pramod Lord MD [address] [place] [address] 01679 PCP - General Internal Medicine 09/04/15 12/17/17 Eron Small [address] [place] [address] 40562 PCP - General Pulmonology 12/18/17 04/05/18 Pramod Lord MD [address] [place] [address] 51192 PCP - General Internal Medicine 04/06/18 01/28/21 Fannie Faye DO PCP - General 08/27/13 12/05/14 Jose Juan Rodriguez DO [address] [place] [address] 98324 PCP - General Internal Medicine 01/29/21 07/21/21 Alexys Baumann MD [address] [place] [address] 18492 PCP - General Internal Medicine 07/22/21 documented as of this encounter
--- OUTSIDE RECORDS SUMMARY | 2024-11-21 18:00 | XMS_ITS | Encounter Summary ---
Author Organization [facility] Address [address] [place] [address] Care Team Providers Care Superintendent System Operation Name Role Phone Pramod Lord MD Primary Care Provider + [phone] Eron Small Primary Care Provider Eva vailable Pramod Lord MD Primary Care Provider + [phone] Jose Juan Rodriguez DO Primary Care Provider Eva vailable Alexys Baumann MD Primary Care Provider [phone] Encounter Details Date Type Department Care Team Description 06/02/2016 Yarn Bleaching Machine Operator Report Medical Records [address] [place] [address] Taras Forde MD Social History Tobacco Use Types Packs/Day [...] on filedocumented in this encounter Care Teams Superintendent System Operation Relationship Specialty Start Date End Date Pramod Lord MD [address] [place] [address] [phone] PCP - General Internal Medicine 09/04/15 12/17/17 Eron Small [address] [place] [address] 19966 PCP - General Pulmonology 3/24/18 7/10/18 Pramod Lord MD [address] [place] [address] 75230 PCP - General Internal Medicine 04/06/18 01/28/21 Jose Juan Rodriguez DO [address] [place] [address] 40274 PCP - General Internal Medicine 01/29/21 07/21/21 Alexys Baumann MD [address] [place] [address] 59745 PCP - General Internal Medicine 07/22/21 documented as of this encounter
--- OUTSIDE RECORDS SUMMARY | 2024-11-21 18:00 | XMS_ITS | Encounter Summary ---
Author Organization [facility] Address [address] [place] [address] Care Team Providers Care Home Housekeeper Name Role Phone Alexys Baumann MD Primary Care Provider [phone] Reason for Visit * Reason Onset Date Comments Fainting Spell 08/13/2023 dizziness 08/13/2023 Encounter Details Date Type Department Care Team Description 08/13/2023 Telephone Adult Medicine [facility] [address] [place] [address] [phone] Alexys Baumann MD [address] [place] [address] Fainting Spell; dizziness Social History Tobacco Use Types Packs/Day Years [...] Recorded In the last 10 days, have erika u been in contact with someone who was confirmed or suspected to have Coronavirus/COVID-19? No / Unsure 08/03/2023 7:56 AM EST documented as of this encounter Miscellaneous Notes * Telephone Encounter - Katie Cornell L.P.N. - 08/13/2023 11:12 AM EST FYI, He did not faint at all, just has dizziness, feels like he is going to faint. Thank you, Anita * Telephone Encounter - Mayda Aquino R.N. - 08/13/2023 11:12 AM EST Pt is being followed by his typesetter perforator operator for his dizziness. They think the dizziness is the result of when he tilts BP drops. He is having a test on 09/14/23. He wants to have blood work done and getsomething for the dizziness. I informed him that he should contact cardiology. Pt states they told him to contact pcp. Pt states that he has had no falls. Had one johnson with the dizziness. Denies hitting head. No changes in medications. Pt see Dr. Quijano in [place]. [phone]. Called office left message requesting notes of last visit. Claudia BELL 08/18/23 at 11:30 Advised home care following dizziness protocol.RN reinforced telephone consultation and advice. Reviewed with pt the s/s to watch for that would require immediate attention. If symptoms change, worsen or increase in intensity to call back immediately or go to ER / call 911. Pt verbalized understanding and agreed with plan. * Telephone Encounter - Katie Cornell L.P.N. - 08/13/2023 10:42 AM EST Abdoulaye Vann is a coumadin pt and he called me today asking if I could send a message to triage. He has been experiencing dizziness for the last 3-4 weeks. He has been in contact with his typesetter perforator operator office and is scheduled for a procedure, on Sep 14 to determine if his bp drops with tilting.I am not familiar with this procedure. However, he was advised to reach out to his PCP to see if anything else needed to be done, (blood work, etc) He is very anxious, and I am hoping you could call him and get more information regarding his symptoms and then advise. 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
--- OUTSIDE RECORDS SUMMARY | 2024-11-21 18:00 | XMS_ITS | Encounter Summary ---
Author Organization [facility] Address [address] [place] [address] Care Team Providers Care Machine Design Checker Name Role Phone Pramod Lord MD Primary Care Provider [phone] Jose Juan Rodriguez DO Primary Care Provider Eva Alexys Wright MD Primary Care Provider [phone] Encounter Details Date Type Department Care Team Description 11/07/2020 Abstract Writer Report Medical Records [address] [place] [address] Jenise Salazar MD Social History Tobacco Use [...] have Coronavirus / COVID-19? No / Unsure 11/05/2020 1:49 PM EST documented as of this encounter Plan of Treatment Not on file documented as of this encounter Visit Diagnoses Not on filedocumented in this encounter Care Teams Machine Design Checker Relationship Specialty Start Date End Date Pramod Lord MD [address] [place] [address] PCP - General Internal Medicine 04/06/18 01/28/21 Jose Juan Rodriguez DO [address] [place] [address] PCP - General Internal Medicine 01/29/21 07/21/21 Alexys Baumann MD [address] [place] [address]77 PCP - General Internal Medicine 07/22/21 documented as of this encounter
--- OUTSIDE RECORDS SUMMARY | 2024-11-21 18:00 | XMS_ITS | Encounter Summary ---
Author Organization [facility] Address [address] [place] [address] Care Team Providers Care Nurse Supervisor Name Role Phone Pramod Lord MD Primary Care Provider + [phone] Eron Small Primary Care Provider Eva vailable Pramod Lord MD Primary Care Provider + [phone] Jose Juan Rodriguez DO Primary Care Provider Eva vailable Alexys Baumann MD Primary Care Provider [phone] Encounter Details Date Type Department Care Team Description 12/19/2015 Release of Information Medical Records [address] [place] [address] Abstract, Provider Social History Tobacco Use Types [...] on filedocumented in this encounter Care Teams Nurse Supervisor Relationship Specialty Start Date End Date Pramod Lord MD [address] [place] [address] PCP - General Internal Medicine 09/04/15 12/17/17 Eron Small [address] [place] [address] 04116 PCP - General Pulmonology 12/18/17 04/05/18 Pramod Lord MD [address] [place] [address] 43977 PCP - General Internal Medicine 04/06/18 01/28/21 Jose Juan Rodriguez DO [address] [place] [address] 82857 PCP - General Internal Medicine 01/29/21 07/21/21 Alexys Baumann MD [address] [place] [address] 8[address] PCP - General Internal Medicine 07/22/21 documented as of this encounter
--- OUTSIDE RECORDS SUMMARY | 2024-11-21 18:00 | XMS_ITS | Encounter Summary ---
Author Organization [facility] Address [address] [place] [address] Care Team Providers Care Salon Sales Consultant Name Role Phone Alexys Baumann MD Primary Care Provider [phone] Encounter Details Date Type Department Care Team Description 10/07/2023 Hand Driller Report Medical Records [address] [place] [address] Juan Daniel Quijano MD Social History Tobacco [...] on filedocumented in this encounter Care Teams Salon Sales Consultant Relationship Specialty Start Date End Date Alexys Baumann MD [address] [place], [place] [phone] PCP - General Internal Medicine 07/22/21 documented as of this encounter
== END 2024-11-21 15:01 | disposition home or self-care (01) ==
PROVIDERS: PCP Internal Medicine; Visit Provider Internal Medicine
DX: I47.10 Supraventricular tachycardia, unspecified (principal); R00.1 Bradycardia, unspecified; I25.10 Atherosclerotic heart disease of native coronary artery without angina pectoris; I95.1 Orthostatic hypotension; Z95.818 Presence of other cardiac implants and grafts
CPT/HCPCS: 93010; 99214; G2211

== ENCOUNTER → 2024-11-21 14:20 | Outpatient (BNVA) | payer OTHER, SELFPAY | PROVIDERS: PCP Internal Medicine; Visit Provider Internal Medicine | DX: R07.9 Chest pain, unspecified (principal); I47.10 Supraventricular tachycardia, unspecified; R00.1 Bradycardia, unspecified; I95.1 Orthostatic hypotension; Z95.818 Presence of other cardiac implants and grafts | CPT/HCPCS: 93005; 99212 ==

== ENCOUNTER 2024-12-01 10:04 | Outpatient (REF) | payer OTHER, SELFPAY ==
--- OUTSIDE RECORDS SUMMARY | 2024-12-01 11:15 | XMS_ITS | Encounter Summary ---
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); Pulmonary embolism, unspecified chronicity, unspecified pulmonary embolism type, unspecified whether acute cor pulmonale present (CMS/HCC); assisted (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 Social History Tobacco [...] Department Care Team (Latest Contact Info) Description 12/08/2024 1:40 PM EDT Anticoagulation - Warfarin Visit Coumadin [address] [phone] documented as of this encounter Procedures Procedure Name Priority Date/Time Associated Diagnosis Comments POC PROTIME INR BLOOD Routine 11/17/2024 Heterozygous factor V Leiden mutation (CMS/HCC) Pulmonary embolism, unspecified chronicity, unspecified pulmonary embolism type, unspecified whether acute cor pulmonale present (CMS/HCC) medical terminologist (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 documented in this encounter Results * POC Protime INR Blood (11/17/2024) Lot Number INR POC 2.9 Prothrombin Time POC Exp Date Blood 11/17/2024 us Alexys Baumann MD POINT OF CARE TEST ENTER/EDIT O RDERABLES Final Result documented in this encounter Visit Diagnoses Diagnosis Heterozygous factor V Leiden mutation (CMS/HCC)- Primary Primary hypercoagulable state Pulmonary embolism, unspecified chronicity, unspecified pulmonary embolism type, unspecified whether acute cor pulmonale present (CMS/HCC) medical terminologist (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 Long-term (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 documented in this encounter Care Teams Bench Lay Out Technician Relationship Specialty Start Date End Date Alexys Baumann MD [address] [place] [address] PCP - General Internal Medicine 08/15/24 documented as of this encounter
--- OUTSIDE RECORDS SUMMARY | 2024-12-01 11:15 | XMS_ITS | Encounter Summary ---
Author Organization [facility] Address [id number] [place] [phone] Care Team Providers Care Senior Editor Name Role Phone Alexys Baumann MD Primary Care Provider [phone] Encounter Details Date Type Department Care Team (Latest Contact Info) Description 11/28/2024 2:00 PM EST Anticoagulation - Warfarin Visit Coumadin [address] [phone] Heterozygous factor V Leiden mutation (CMS/HCC) (Primary Dx); Pulmonary embolism, unspecified chronicity, unspecified pulmonary embolism type, unspecified whether acute cor pulmonale present (CMS/HCC); skilled nursing (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 Social History Tobacco [...] PM EDT Anticoagulation - Warfarin Visit Coumadin [address] [phone] documented as of this encounter Procedures Procedure Name Priority Date/Time Associated Diagnosis Comments POC PROTIME INR BLOOD Routine 11/28/2024 Heterozygous factor V Leiden mutation (CMS/HCC) Pulmonary embolism, unspecified chronicity, unspecified pulmonary embolism type, unspecified whether acute cor pulmonale present (CMS/HCC) intermediate card tender (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 documented in this encounter Results * POC Protime INR Blood (11/28/2024) Lot Number INR POC 1.8 Prothrombin Time POC Exp Date Blood 11/28/2024 us Alexys Baumann MD POINT OF CARE TEST ENTER/EDIT O RDERABLES Final Result documented in this encounter Visit Diagnoses Diagnosis Heterozygous factor V Leiden mutation (CMS/HCC)- Primary Primary hypercoagulable state Pulmonary embolism, unspecified chronicity, unspecified pulmonary embolism type, unspecified whether acute cor pulmonale present (CMS/HCC) intermediate card tender (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 Long-term (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 documented in this encounter Care Teams Senior Editor Relationship Specialty Start Date End Date Alexys Baumann MD [address] [place] [id number] PCP - General Internal Medicine 08/15/24 documented as of this encounter
--- OUTSIDE RECORDS SUMMARY | 2024-12-01 11:15 | XMS_ITS | Encounter Summary ---
Author Organization [facility] Address [address] [place] [phone] Care Team Providers Care Systems Development Manager Name Role Phone Alexys Baumann MD Primary Care Provider [phone] Encounter Details Date Type Department Care Team (Latest Contact Info) Description 10/20/2024 1:30 PM EST Anticoagulation - Warfarin Visit Coumadin [address] [phone] Heterozygous factor V Leiden mutation (CMS/HCC) (Primary Dx); Pulmonary embolism, unspecified chronicity, unspecified pulmonary embolism type, unspecified whether acute cor pulmonale present (CMS/HCC); intermediate (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 Social History Tobacco [...] EDT Anticoagulation - Warfarin Visit Coumadin [address] [phone] documented as of this encounter Procedures Procedure Name Priority Date/Time Associated Diagnosis Comments POC PROTIME INR BLOOD Routine 10/20/2024 Heterozygous factor V Leiden mutation (CMS/HCC) Pulmonary embolism, unspecified chronicity, unspecified pulmonary embolism type, unspecified whether acute cor pulmonale present (CMS/HCC) long term acute care registered nurse (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 documented in this encounter Results * POC Protime INR Blood (10/20/2024) Lot Number INR POC 2.1 Prothrombin Time POC Exp Date Blood 10/20/2024 us Alexys Baumann MD POINT OF CARE TEST ENTER/EDIT O RDERABLES Edited Result - Final documented in this encounter Visit Diagnoses Diagnosis Heterozygous factor V Leiden mutation (CMS/HCC)- Primary Primary hypercoagulable state Pulmonary embolism, unspecified chronicity, unspecified pulmonary embolism type, unspecified whether acute cor pulmonale present (CMS/HCC) intermediate (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 Long-term (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 documented in this encounter Care Teams Systems Development Manager Relationship Specialty Start Date End Date Alexys Baumann MD [address] [place] [id number] PCP - General Internal Medicine 08/15/24 documented as of this encounter
--- OUTSIDE RECORDS SUMMARY | 2024-12-01 11:15 | XMS_ITS | Clinical Summary ---
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 2023 Right lower quadrant abdominal mass 07/29/2022 Globus sensation 07/11/2019 DDD (degenerative disc disease), lumbar 01/10/20 Lumbar radiculopathy 01/09/2019 SVT (supraventricular tachycardia) 11/26/2017 [...] Encounters Date Type Department Care Team Description 12/01/2024 8:00 AM EST Anticoagulation - Warfarin Visit Coumadin [address] [phone] Heterozygous factor V Leiden mutation (CMS/HCC) (Primary Dx); Pulmonary embolism, unspecified chronicity, unspecified pulmonary embolism type, unspecified whether acute cor pulmonale present (CMS/HCC); senior living (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 11/28/2024 2:00 PM EST Anticoagulation - Warfarin Visit Coumadin [address] [phone] Heterozygous factor V Leiden mutation (CMS/HCC) (Primary Dx); Pulmonary embolism, unspecified chronicity, unspecified pulmonary embolism type, unspecified whether acute cor pulmonale present (CMS/HCC); senior living (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 11/17/2024 1:50 PM EST [facility] [address] [phone] Heterozygous factor V Leiden mutation (CMS/HCC) (Primary Dx); Pulmonary embolism, unspecified chronicity, unspecified pulmonary embolism type, unspecified whether acute cor pulmonale present (CMS/HCC); senior living (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 10/27/2024 2:10 PM EST Anticoagulation - Warfarin Visit [address] [phone] Heterozygous factor V Leiden mutation (CMS/HCC) (Primary Dx); Pulmonary embolism, unspecified chronicity, unspecified pulmonary embolism type, unspecified whether acute cor pulmonale present (CMS/HCC); 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 10/20/2024 1:30 PM EST Anticoagulation - Warfarin Visit Coumadin [address] [phone] Heterozygous factor V Leiden mutation (CMS/HCC) (Primary Dx); Pulmonary embolism, unspecified chronicity, unspecified pulmonary embolism type, unspecified whether acute cor pulmonale present (CMS/HCC); senior living (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 10/18/2024 8:20 AM EST Anticoagulation - Warfarin Visit [address] [phone] Heterozygous factor V Leiden mutation (CMS/HCC) (Primary Dx); Pulmonary embolism, unspecified chronicity, unspecified pulmonary embolism type, unspecified whether acute cor pulmonale present (CMS/HCC); senior living (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 10/18/[address] [phone] Natalya Marina, WORM SORTER Medication Problem 10/04/2024 8:40 AM EST Anticoagulation - Warfarin Visit [address] [phone] Heterozygous factor V Leiden mutation ([facility]) (Primary Dx); Pulmonary embolism, unspecified chronicity, unspecified pulmonary embolism type, unspecified whether acute cor pulmonale present ([facility]); senior living (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 from Last 3 [...] Site/Laterality Comments OTHER SURGICAL HISTORY 05/2014 PROCEDURE: MT ARTHRD ANT INTERBODY MIN DSC CRV BELOW C2; COMMENT: dr chen Medical History Medical History Date Comments Depression DX:Depression Anxiety DX:Anxiety Panic DX:Panic 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[facility]) PE (pulmonary embolism) DX:PE (p ulmonary embolism) [...] PM EDT Anticoagulation - Warfarin Visit Coumadin [address] [phone] Health Maintenance Due Date Last Done Comments [...] Diagnosis Comments POC PROTIME INR BLOOD Routine 12/01/2024 Heterozygous factor V Leiden mutation ([facility]/HCC) Pulmonary embolism, unspecified chronicity, unspecified pulmonary embolism type, unspecified whether acute cor pulmonale present (CMS/HCC) senior living (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 POC PROTIME INR BLOOD Routine 11/28/2024 Heterozygous factor V Leiden mutation ([facility]/HCC) Pulmonary embolism, unspecified chronicity, unspecified pulmonary embolism type, unspecified whether acute cor pulmonale present (CMS/HCC) 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 POC PROTIME INR BLOOD Routine 11/17/2024 Heterozygous factor V Leiden mutation ([facility]/HCC) Pulmonary embolism, unspecified chronicity, unspecified pulmonary embolism type, unspecified whether acute cor pulmonale present (CMS/HCC) 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 POC PROTIME INR BLOOD Routine 10/27/2024 Heterozygous factor V Leiden mutation ([facility]/HCC) Pulmonary embolism, unspecified chronicity, unspecified pulmonary embolism type, unspecified whether acute cor pulmonale present (CMS/HCC) senior living (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 POC PROTIME INR BLOOD Routine 10/20/2024 Heterozygous factor V Leiden mutation (CMS/HCC) Pulmonary embolism, unspecified chronicity, unspecified pulmonary embolism type, unspecified whether acute cor pulmonale present (CMS/HCC) senior living (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 POC PROTIME INR BLOOD Routine 10/18/2024 Heterozygous factor V Leiden mutation (CMS/HCC) Pulmonary embolism, unspecified chronicity, unspecified pulmonary embolism type, unspecified whether acute cor pulmonale present (CMS/HCC) 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 Lot Number INR POC 1.9 Prothrombin Time POC Exp Date Blood 12/01/2024 Alexys Baumann MD POINT OF CARE TEST ENTER/EDIT O RDERABLES Final Result * (ABNORMAL) Lipid panel (08/30/2023) LDL/HDL Ratio 5(A) 0 - 4 Triglycerides 327(A) 0 - 150 mg/dL Cholesterol 225(A) 0 - 200 mg/dL HDL 45 >=40 mg/dL LDL Cholesterol 115(A) 0 - 100 mg/dL Blood Venous blood specimen / Unknown Ben Shelley MD LAB BLOOD ORDERABLES Aileen l Result * HIV Screening (12/13/2018) HIV Screening Abstracted us Historical Provider HEALTH MAINTENANCE Final Result * Hepatitis C Screening (12/13/2018) Hepatitis C Screening Abstracted us Historical Provider HEALTH MAINTENANCE Final Result from Last 3 Months or Most Recently Relevant to Health Maintenance Insurance [facility] [employer] Care Teams History Instructor Relationship Specialty Start Date End Date Alexys Baumann MD [address] [place] [phone] PCP - General Internal Medicine 08/15/24
--- OUTSIDE RECORDS SUMMARY | 2024-12-01 11:15 | XMS_ITS | Encounter Summary ---
Author Organization [facility] Address [address] [place] [phone] Care Team Providers Care In Home Sales Representative Name Role Phone Alexys Baumann MD Primary Care Provider [phone] Encounter Details Date Type Department Care Team (Latest Contact Info) Description 10/18/2024 8:20 AM EST Anticoagulation - Warfarin Visit Coumadin [address] [phone] Heterozygous factor V Leiden mutation (CMS/HCC) (Primary Dx); Pulmonary embolism, unspecified chronicity, unspecified pulmonary embolism type, unspecified whether acute cor pulmonale present (CMS/HCC); [facility] (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 Social History Tobacco [...] PM EDT Anticoagulation - Warfarin Visit Coumadin [address] [phone] documented as of this encounter Procedures Procedure Name Priority Date/Time Associated Diagnosis Comments POC PROTIME INR BLOOD Routine 10/18/2024 Heterozygous factor V Leiden mutation (CMS/HCC) Pulmonary embolism, unspecified chronicity, unspecified pulmonary embolism type, unspecified whether acute cor pulmonale present (CMS/HCC) 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
--- OUTSIDE RECORDS SUMMARY | 2024-12-01 11:15 | XMS_ITS | Encounter Summary ---
Author Organization [facility] Address [address] [place] [phone] Care Team Providers Care Sales Contract Administrator Name Role Phone Alexys Baumann MD Primary Care Provider [phone] Encounter Details Date Type Department Care Team (Latest Contact Info) Description 10/27/2024 2:10 PM EST Anticoagulation - Warfarin Visit Coumadin [address] [phone] Heterozygous factor V Leiden mutation (CMS/HCC) (Primary Dx); Pulmonary embolism, unspecified chronicity, unspecified pulmonary embolism type, unspecified whether acute cor pulmonale present (CMS/HCC); halfway (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 Social History Tobacco [...] PM EDT Anticoagulation - Warfarin Visit Coumadin [address] [phone] documented as of this encounter Procedures Procedure [...] Prothrombin Time POC Exp Date Blood 10/27/2024 us Alexys Baumann MD POINT OF CARE TEST ENTER/EDIT O RDERABLES Final Result documented in this encounter Visit Diagnoses Diagnosis Heterozygous factor V Leiden mutation (CMS/HCC)- Primary Primary hypercoagulable state Pulmonary embolism, unspecified chronicity, unspecified pulmonary embolism type, unspecified whether acute cor pulmonale present (CMS/HCC) intermediate card tender (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 Long-term (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 documented in this encounter Care Teams Sales Contract Administrator Relationship Specialty Start Date End Date Alexys Baumann MD [address] [place] [id number] PCP - General Internal Medicine 08/15/24 documented as of this encounter
--- OUTSIDE RECORDS SUMMARY | 2024-12-01 11:15 | XMS_ITS | Encounter Summary ---
Author Organization [facility] Address [address] [place] [phone] Care Team Providers Care Toggle Press Operator Name Role Phone Alexys Baumann MD Primary Care Provider [phone] Encounter Details Date Type Department Care Team (Latest Contact Info) Description 12/01/2024 8:00 AM EST Anticoagulation - Warfarin Visit Coumadin [address] [phone] Heterozygous factor V Leiden mutation (CMS/HCC) (Primary [...] PM EDT Anticoagulation - Warfarin Visit Coumadin [address] [phone] documented as of this encounter Procedures Procedure Name Priority Date/Time Associated Diagnosis Comments POC PROTIME INR BLOOD Routine 12/01/2024 Heterozygous factor V Leiden mutation (CMS/HCC) Pulmonary embolism, unspecified chronicity, unspecified pulmonary embolism type, unspecified whether acute cor pulmonale present (CMS/HCC) superintendent container 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 (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 documented in this encounter Results * POC Protime INR Blood (12/01/2024) Lot Number INR POC 1.9 Prothrombin Time POC Exp Date Blood 12/01/2024 us Alexys Baumann MD POINT OF CARE TEST ENTER/EDIT O RDERABLES Final Result documented in this encounter Visit Diagnoses Diagnosis Heterozygous factor V Leiden mutation (CMS/HCC)- Primary Primary hypercoagulable state Pulmonary embolism, unspecified chronicity, unspecified pulmonary embolism type, unspecified whether acute cor pulmonale present (CMS/HCC) superintendent 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
== END 2024-12-01 10:05 | disposition home or self-care (01) ==
LOC: HO.MS 10:04
PROVIDERS: PCP Internal Medicine; Visit Provider Internal Medicine Cardiovascular Disease
DX: Z45.09 Encounter for adjustment and management of other cardiac device (principal); Z53.9 Procedure and treatment not carried out, unspecified reason

== ENCOUNTER 2024-12-15 13:19 | Outpatient (REF) | payer OTHER, SELFPAY ==
[2024-12-15 14:06] VITALS: BP 148/67; PULSE 81; RESP 18; O2SAT 97; BMI 30.3
--- NOTE | 2024-12-15 14:42 | P.BOP_ITS ---
Brief Operative Note Date of Service: 12/15/24 Pre-op diagnosis: Implantable loop recorder in place Post-op diagnosis: same Procedure: Removal of implantable loop recorder Implants: After obtaining consent patient was minor surgery suite in supine position. Patient was device was identified and marked. Patient was precordial area was then prepped and draped in a sterile fashion. Patient was then administered 2% lidocaine with epinephrine intradermally and subcutaneously. A small incision was made just above the head of the device. The device was then removed with the help of Bernie forcerola. The wound was then closed with Steri-Strips and pressure dressing applied Surgeon: David Obando MD Anesthesia: local Was an Foil Stamp Operator used for this Procedure?: No Foil Stamp Operator: Garth Chávez Estimated blood loss (mL): 5 Pathology: none sent Condition: stable Disposition: same day
== END 2024-12-15 13:20 | disposition home or self-care (01) ==
LOC: HO.MS 13:19
PROVIDERS: PCP Internal Medicine; Visit Provider Internal Medicine Cardiovascular Disease
PROC: (CPT 33286; principal; 2024-12-15 14:00)
DX: Z45.09 Encounter for adjustment and management of other cardiac device (principal)
CPT/HCPCS: 33286; J2004

== ENCOUNTER → 2024-12-15 13:19 | Outpatient (BNV) | payer OTHER, SELFPAY | PROVIDERS: PCP Internal Medicine; Visit Provider Internal Medicine Cardiovascular Disease | DX: Z45.09 Encounter for adjustment and management of other cardiac device (principal) | CPT/HCPCS: 33286 ==

== ENCOUNTER 2025-01-22 08:38 | Outpatient (AMB) | payer OTHER, SELFPAY ==
--- NOTE | 2025-01-22 08:43 | A.OFFVIS_ITS ---
Vital Signs 01/22/25 08:48 Height 6 ft 1 in BMI Reason not done Patient refused/unable BP 130/60 Blood Pressure Location Rt brachial Position Sitting Pulse 53 Pulse Source Monitor Intake Visit Reasons: fu req by pt- more freq electrical shocks Private Pilot Required: No Accompanied by: Self / Same As Patient Allergies codeine Allergy (Verified 10/07/23 09:10) Nausea STATINS Allergy (Mild, Uncoded 10/07/23 09:10) HEART PALPITATIONS Medication List - Last Reconciled 01/22/25 by Juan Daniel Quijano MD hydroxyzine HCl 10 mg PO Q8-10H PRN lorazepam 1 mg PO BEDTIME PRN warfarin 5 mg PO DAILY HPI Comments Details: Abdoulaye returns for follow-up. Has had various issues. 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 Then he was having symptoms like dizziness/presyncope. Tilt-table had shown orthostatic hypotension. It was felt that could be related to drastic weight loss. Any case, that is seems to have stabilized at this time. He has had random chest pains at different times most likely musculoskeletal. Coronary CTA in the past without any significant CAD. Most recently, underwent implantable loop recorder removal. Then he has noticed some sharp pains in that area, most likely related to scar tissue extra. Exercise The patient engages in regular physical activity by walking on a treadmill at five miles per hour on an incline for 45 minutes. He exercises regularly, with no significant cardiovascular symptoms or limitations. He has managed a notable weight reduction from 297 to 230 pounds, indicating effective weight management. The activity is sustained despite episodes of dizziness, which may relate to previous weight loss and dietary adjustments for blood pressure management. [facility] Medical History (Updated 12/29/24 @ 07:47 by CANDY BarnesC) Orthostatic hypotension Hereditary deficiency of other clotting factors Depression GERD (gastroesophageal reflux disease) Anxiety Obesity Hyperlipidemia Sleep apnea Pulmonary embolism Factor V Leiden Surgical History History of cardiac radiofrequency ablation Hx of cardiac cath Hx of knee surgery Presence of cardiac and vascular implant and graft Hx of neck surgery Family History Mother Cancer Father Diabetes Hypertension Heart disease Heart attack Sister No problems noted. Brother No problems noted. Sister Factor 5 Leiden mutation, heterozygous Son Factor 5 Leiden mutation, heterozygous Daughter No problems noted. Daughter No problems noted. Daughter Multiple sclerosis Social History Are you a primary nurse wound care to a significant other at home: Yes Do you presently have visiting nurse or other home services: No Alcohol intake: never Patient Tobacco Use Status: Never used Tobacco Review of Systems Const Denies chills, Denies fatigue, Denies fever(s), Denies frequent falls, Denies weakness, Denies weight gain and Denies weight loss ENT Reports dizziness Card Reports chest pain, Reports chest pain at rest, Reports chest pain with activity, Denies leg edema, Reports lightheadedness, Denies palpitations, Reports dyspnea, Reports dyspnea on exertion and Reports orthopnea Resp Denies cough, Reports dyspnea and Reports dyspnea on exertion GI Denies hematochezia Musc Denies abnormal gait, Denies muscle weakness, Denies numbness, Denies radiating pain into limb and Denies tingling Neuro Denies abnormal gait, Reports dizziness, Denies frequent falls, Denies numbness, Denies tingling and Denies weakness Endo Denies fatigue and Denies palpitations Physical Exam Vital Signs: Last Vital Signs Pulse 53 01/22/25 08:48 BP 130/60 01/22/25 08:48 Const General: comfortable and no acute distress Orientation/consciousness: patient oriented x3 HEENT Other: Unremarkable Head: Yes normal to inspection Neck Neck: Yes normal visual inspection Chest Chest palpation & inspection: normal inspection of the chest Resp Auscultation: clear to auscultation bilaterally Cardio Palpation: normal PMI Heart sounds: S1 normal heart sound present, S2 normal heart sound present, no gallops, no murmurs and no rubs GI Palpation (GI): Soft to palpation Back/Spine/Pelvis Other: unremarkable Skin General skin exam: no rashes or lesions noted Neuro General: patient oriented x3 Extrem General: Yes normal to inspection Psych Mental Status: mental status grossly normal Office Procedures EKG Details: EKG with sinus bradycardia at 53/Min; no significant ST-T changes; [place] [address]-Sjzcigtkoqjzssmlh, Complete Assessment & Plan Assessment & Plan (1) SVT (supraventricular tachycardia): Code(s): I47.1 - Supraventricular tachycardia Category: Medical (2) Sinus bradycardia: Code(s): R00.1 - Bradycardia, unspecified Category: Medical (3) Atherosclerotic cardiovascular disease: Code(s): I25.10 - Atherosclerotic heart disease of [place] coronary artery without angina pectoris Category: Medical (4) Orthostatic hypotension: Code(s): I95.1 - Orthostatic hypotension Category: Medical Plan Cardiac studies reviewed. Echocardiogram with LVEF of 61%. No wall motion abnormalities. Normal diastolic function. Otherwise unremarkable. Coronary CTA shows only mild coronary disease. Nothing hemodynamically significant. Tilt-table study positive orthostatic hypotension. Status post AVNRT ablation. With regard to the AVNRT, seems resolved at this time. With regard to the orthostatic hypotension -could be because of weight loss. Seems to have stabilized. Avoid losing excessive weight as that may again precipitate hypotension. With regard to the sinus bradycardia, no specific management. Not on rate slowing drugs. With regard to mild CAD, check lipids. He states that he cannot takes statins as he has had many side effects. With regard to the sharp chest pains, likely related to scar tissue. He is status post ILR removal. Mainly reassurance. Discussion Notes I discussed with the patient the expectation that the frequency of chest zaps due to scar tissue would continue to decrease over time. We reviewed his efforts to manage previously low blood pressure through increased dietary salt and regular treadmill exercise. The patient expressed an understanding of managing dizziness possibly resulting from rapid weight changes. I emphasized the importance of assessing his current cholesterol status and reiterated that, given his intolerance to statins, alternative strategies would be considered. The patient consented to a cholesterol panel and agreed on a structured follow- up plan. Patient was informed and verbally consented to the use of an ambient scribe for clinic note documentation during this visit. Orders: Orders Lipid Panel Today E78.5 - Hyperlipidemia, unspecified, I25.10 - Atherosclerotic heart disease of [place] coronary artery without angina pectoris Patient Instructions: - Continue dietary modifications, including adding salt as needed to maintain stable blood pressure. - Perform regular treadmill exercise as tolerated and report any new symptoms. - Get cholesterol levels checked after fasting one morning as planned. - Maintain weight management practices and monitor for significant changes. - Reach out for new or worsening symptoms during the six-month interval. - Ensure coordination of care with your primary care provider. Coding Level of Care Code Est Pt Level 4 (52640) Complex EM visit Add On G2211 Diagnoses SVT (supraventricular tachycardia) I47.1 Sinus bradycardia R00.1 Atherosclerotic cardiovascular disease I25.10 Orthostatic hypotension I95.1 CPT Codes EKG - CPT: 19987-Uucqorzylxkrdabzp, Complete ([id number])
[2025-01-22 08:48] VITALS: BP 130/60; PULSE 53
--- OUTSIDE RECORDS SUMMARY | 2025-01-22 09:08 | XMS_ITS | Clinical Summary ---
Author Organization [facility] [address] [facility] Address [address] [place] [phone] Phone Care Team Providers Care Chocolate Temperer Name Role Phone Alexys Baumann MD Primary Care Provider [phone] Allergies Active Allergy Reactions Criticality Noted Date [...] Take 1 Tablet by mouth daily. Active enoxaparin (LOVENOX) 100 mg/mL syringe Inject 1 mL (100 mg total) under the skin every 12 (twelve) hours. 10 each 1 5 Active warfarin (COUMADIN) 5 mg tablet TAKE 1 TO 3 TABLETS BY MOUTH DAILY. MAY CAUSE HEAVY BLEEDING. TAKE AT SAME TIME EVERY DAY. DO NOT CHANGE DIETARY HABITS. 90 tablet 5 Active Active Problems Problem Noted Date Diagnosed Date Heterozygous factor V Leiden mutation (CMS/HCC V 24) 08/29/2024 Pulmonary embolus (CMS/HCC V24, CMS/HCC V28) 11/2023 group home (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 2023 Right lower quadrant abdominal mass 07/29/2022 Globus sensation 07/11/2019 DDD (degenerative disc disease), lumbar 01/10/20 Lumbar radiculopathy 01/09/2019 SVT (supraventricular tachycardia) ([facility] V24) 11/26/2017 Elevated glucose 11/09/2017 Elevated blood pressure [...] disease) 0 Depression 09/13/2008 Factor V deficiency ([facility] V24, [facility] V28) 1 10/16/2007 Overview (09/15/2024): Testing pending however a strong family history, Sister sudden age 35,Multiple family members with factor V deficiency, patient with recent hospitalization for pulmonary embolism Encounters Date Type Department Care Team Description 01/18/2025 8:00 AM EDT Anticoagulation - Warfarin Visit Coumadin [address] [phone] Heterozygous factor V Leiden mutation ([facility] V24) (Primary Dx); Pulmonary embolism, unspecified chronicity, unspecified pulmonary embolism type, unspecified whether acute cor pulmonale present ([facility] V24, [facility] V28); group home (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 12/19/2024 4:00 PM EDT Anticoagulation - Warfarin Visit [facility] [place] [address] [place], [place] [phone] Heterozygous factor V Leiden mutation (CMS/HCC V24) (Primary Dx); Pulmonary embolism, unspecified chronicity, unspecified pulmonary embolism type, unspecified whether acute cor pulmonale present (CMS/HCC V24, CMS/HCC V28); group home (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 12/01/2024 8:00 AM EST Anticoagulation - Warfarin Visit [address] [phone] Heterozygous factor V Leiden mutation (CMS/HCC V24) (Primary Dx); Pulmonary embolism, unspecified chronicity, unspecified pulmonary embolism type, unspecified whether acute cor pulmonale present (CMS/HCC V24, CMS/HCC V28); group home (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 11/28/2024 2:00 PM EST Anticoagulation - Warfarin Visit [address] [phone] Heterozygous factor V Leiden mutation (CMS/HCC V24) (Primary Dx); Pulmonary embolism, unspecified chronicity, unspecified pulmonary embolism type, unspecified whether acute cor pulmonale present (CMS/HCC V24, CMS/HCC V28); group home (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 11/17/2024 1:50 PM EST Anticoagulation - Warfarin Visit [address] [phone] Heterozygous factor V Leiden mutation (CMS/HCC V24) (Primary Dx); Pulmonary embolism, unspecified chronicity, unspecified pulmonary embolism type, unspecified whether acute cor pulmonale present (CMS/HCC V24, CMS/HCC V28); group home (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 10/27/2024 2:10 PM EST Anticoagulation - Warfarin Visit [address] [phone] Heterozygous factor V Leiden mutation (CMS/HCC V24) (Primary Dx); Pulmonary embolism, unspecified chronicity, unspecified pulmonary embolism type, unspecified whether acute cor pulmonale present (CMS/HCC V24, [facility] V28); 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 from Last 3 [...] Site/Laterality Comments OTHER SURGICAL HISTORY 05/2014 PROCEDURE: [place] ARTHRD ANT INTERBODY MIN DSC CRV BELOW C2; COMMENT: dr chen Medical History Medical History Date Comments Depression DX:Depression Anxiety DX:Anxiety Panic DX:Panic Factor V deficiency ([facility] V24, [facility] V28) DX:Factor V deficiency (HCC) PE (pulmonary embolism) DX:PE [...] Department Care Team (Latest Contact Info) Description 01/26/2025 8:20 AM EDT Anticoagulation - Warfarin Visit [facility] Clinic [address] [phone] Health Maintenance Due Date Last Done Comments Hepatitis B Vaccines (1 of 3 - 19+ 3-dose series) 1992 DTaP,Tdap,and Td Vaccines (2 - Td or Tdap) 01/11/2022 01/12/2012 Colorectal Cancer Screening: Colonoscopy 09/04/2022 Depression Screening 09/04/2022 Social Influencers of Health Screening 09/04/2022 Pneumococcal Vaccine: 50+ Years (1 of 1 - PCV) 2023 Zoster Vaccines (1 of 2) 2023 COVID-19 Vaccine ( season) 2024 02/20/2022, 01/23/2021, 01/02/2021 Influenza Vaccine (Season Ended) 2025 12/04/2021, 08/03/2017, 08/02/2013, Additional history exists Cholesterol Screening [...] age to complete this topic Meningococcal B Vaccine Aged Out No l onger eligible based on patient's age to complete [...] Diagnosis Comments POC PROTIME INR BLOOD Routine 01/18/2025 Heterozygous factor V Leiden mutation ([facility]/HCC V24) Pulmonary embolism, unspecified chronicity, unspecified pulmonary embolism type, unspecified whether acute cor pulmonale present (CMS/HCC V24, CMS/HCC V28) group home (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 POC PROTIME INR BLOOD Routine 12/19/2024 Heterozygous factor V Leiden mutation ([facility]/HCC V24) Pulmonary embolism, unspecified chronicity, unspecified pulmonary embolism type, unspecified whether acute cor pulmonale present (CMS/HCC V24, CMS/HCC V28) 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 POC PROTIME INR BLOOD Routine 12/01/2024 Heterozygous factor V Leiden mutation ([facility]/HCC V24) Pulmonary embolism, unspecified chronicity, unspecified pulmonary embolism type, unspecified whether acute cor pulmonale present (CMS/HCC V24, CMS/HCC V28) group home (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 POC PROTIME INR BLOOD Routine 11/28/2024 Heterozygous factor V Leiden mutation ([facility]/HCC V24) Pulmonary embolism, unspecified chronicity, unspecified pulmonary embolism type, unspecified whether acute cor pulmonale present (CMS/HCC V24, CMS/HCC V28) 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 POC PROTIME INR BLOOD Routine 11/17/2024 Heterozygous factor V Leiden mutation (CMS/HCC V24) Pulmonary embolism, unspecified chronicity, unspecified pulmonary embolism type, unspecified whether acute cor pulmonale present (CMS/HCC V24, CMS/HCC V28) 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 POC PROTIME INR BLOOD Routine 10/27/2024 Heterozygous factor V Leiden mutation (CMS/HCC V24) Pulmonary embolism, unspecified chronicity, unspecified pulmonary embolism type, unspecified whether acute cor pulmonale present (CMS/HCC V24, CMS/HCC V28) 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 LIPID PANEL Routine 08/30/2023 HEPATITIS C SCREENING Routine 12/13/2018 HIV SCREENING Routine 12/13/2018 from Last 3 Months or Most Recently Relevant to Health Maintenance Results * POC Protime INR Blood (01/18/2025) Only the most recent of6 resultswithin the time period is included. Pathologist [facility] Lot Number INR POC 1.5 Prothrombin Time POC Exp Date Blood 01/18/2025 Alexys Baumann MD POINT OF CARE TEST ENTER/EDIT O RDERABLES Final Result * (ABNORMAL) Lipid panel (08/30/2023) Pathologist [facility] LDL/HDL Ratio 5(A) 0 - 4 Triglycerides 327(A) 0 - 150 mg/dL Cholesterol 225(A) 0 - 200 mg/dL HDL 45 >=40 mg/dL LDL Cholesterol 115(A) 0 - 100 mg/dL Blood Venous blood specimen / Unknown Historical Provider LAB BLOOD ORDERABLES Aileen l Result * HIV Screening (12/13/2018) Pathologist [facility] HIV Screening Abstracted Historical Provider HEALTH MAINTENANCE Final Result * Hepatitis C Screening (12/13/2018) Hepatitis C Screening Abstracted us Historical Provider HEALTH MAINTENANCE Final Result from Last 3 Months or Most Recently Relevant to Health Maintenance Insurance [facility] [employer] Care Teams Chocolate Temperer Relationship Specialty Start Date End Date Alexys Baumann MD [address] [place] [id number] PCP - General Internal Medicine 08/15/24
--- OUTSIDE RECORDS SUMMARY | 2025-01-22 09:08 | XMS_ITS | Encounter Summary ---
Author Organization [facility] Address [id number] [place] [phone] Care Team Providers Care Spa Technician Name Role Phone Alexys Baumann MD Primary Care Provider Encounter Details Date Type Department Care Team (Latest Contact Info) Description 01/18/2025 8:00 AM EDT Anticoagulation - Warfarin Visit Coumadin [address] [phone] Heterozygous factor V Leiden mutation (CMS/HCC V24) (Primary Dx); Pulmonary embolism, unspecified chronicity, unspecified pulmonary embolism type, unspecified whether acute cor pulmonale present (CMS/HCC V24, CMS/HCC V28); 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 Social History Tobacco [...] AM EDT Anticoagulation - Warfarin Visit Coumadin [address] [phone] documented as of this encounter Procedures Procedure Name Priority Date/Time Associated Diagnosis Comments POC PROTIME INR BLOOD Routine 01/18/2025 Heterozygous factor V Leiden mutation (CMS/HCC V24) Pulmonary embolism, unspecified chronicity, unspecified pulmonary embolism type, unspecified whether acute cor pulmonale present (CMS/HCC V24, CMS/HCC V28) 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 documented in this encounter Results * POC Protime INR Blood (01/18/2025) Lot Number INR POC 1.5 Prothrombin Time POC Exp Date Blood 01/18/2025 us Alexys Baumann MD POINT OF CARE TEST ENTER/EDIT O RDERABLES Final Result documented in this encounter Visit Diagnoses Diagnosis Heterozygous factor V Leiden mutation ([facility] V24)- Primary Primary hypercoagulable state Pulmonary embolism, unspecified chronicity, unspecified pulmonary embolism type, unspecified whether acute cor pulmonale present ([facility] V24, [facility] V28) nursing home (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 Long-term (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 documented in this encounter Care Teams Spa Technician Relationship Specialty Start Date End Date Alexys Baumann MD [address] [place] [phone] PCP - General Internal Medicine 08/15/24 documented as of this encounter
== END 2025-01-22 09:08 | disposition home or self-care (01) ==
LOC: HO.HCS 08:39
PROVIDERS: PCP Internal Medicine; Visit Provider Internal Medicine
DX: I47.10 Supraventricular tachycardia, unspecified (principal); R00.1 Bradycardia, unspecified; I25.10 Atherosclerotic heart disease of native coronary artery without angina pectoris; I95.1 Orthostatic hypotension
CPT/HCPCS: 93010; 99214; G2211

== ENCOUNTER → 2025-01-22 08:38 | Outpatient (BNVA) | payer OTHER, SELFPAY | PROVIDERS: PCP Internal Medicine; Visit Provider Internal Medicine | DX: I47.10 Supraventricular tachycardia, unspecified (principal); R00.1 Bradycardia, unspecified; I25.10 Atherosclerotic heart disease of native coronary artery without angina pectoris; I95.1 Orthostatic hypotension | CPT/HCPCS: 93005; 99212 ==

== ENCOUNTER 2025-04-09 13:25 | Outpatient (AMB) | payer OTHER, SELFPAY ==
--- OUTSIDE RECORDS SUMMARY | 2025-04-06 07:50 | XMS_ITS | Encounter Summary ---
Author Organization [facility] Address [address] [place] [address] Care Team Providers Care Energy Sales Broker Name Role Phone Alexys Baumann MD Primary Care Provider [phone] Encounter Details Date Type Department Care Team (Latest Contact Info) Description 04/06/2025 7:50 AM EDT Anticoagulation - Warfarin Visit Coumadin [address] [phone] Heterozygous factor V Leiden mutation (CMS/HCC V24) (Primary Dx); Pulmonary embolism, unspecified chronicity, unspecified pulmonary embolism type, unspecified whether acute cor pulmonale present (CMS/HCC V24, CMS/HCC V28); [facility] (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 Social History Tobacco [...] Department Care Team (Latest Contact Info) Description 05/07/2025 8:00 AM EDT Anticoagulation - Warfarin Visit Coumadin [address] [phone] documented as of this encounter Procedures Procedure Name Priority Date/Time Associated Diagnosis Comments POC PROTIME INR BLOOD Routine 04/06/2025 Heterozygous factor V Leiden mutation (CMS/HCC V24) Pulmonary embolism, unspecified chronicity, unspecified pulmonary embolism type, unspecified whether acute cor pulmonale present (CMS/HCC V24, CMS/HCC V28) [facility] (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 documented in this encounter Results * POC Protime INR Blood (04/06/2025) Lot Number INR POC 2.7 Prothrombin Time POC Exp Date Blood 04/06/2025 us Alexys Baumann MD POINT OF CARE TEST ENTER/EDIT O RDERABLES Final Result documented in this encounter Visit Diagnoses Diagnosis Heterozygous factor V Leiden mutation ([facility] V24)- Primary Primary hypercoagulable state Pulmonary embolism, unspecified chronicity, unspecified pulmonary embolism type, unspecified whether acute cor pulmonale present ([facility] V24, [facility] V28) [facility] (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 Long-term (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 documented in this encounter Care Teams Energy Sales Broker Relationship Specialty Start Date End Date Alexys Baumann MD [address] [place] [id number] PCP - General Internal Medicine 08/15/24 documented as of this encounter
[2025-04-09 13:35] VITALS: BP 90/60; PULSE 57
--- NOTE | 2025-04-09 13:35 | A.OFFVIS_ITS ---
Vital Signs 04/09/25 13:35 Height 6 ft 1 in BMI Reason not done Patient refused/unable BP 90/60 Blood Pressure Location Lt brachial Position Sitting Pulse 57 Pulse Source Monitor Intake Visit Reasons: Follow up- [facility] Chest Pains Allergies codeine Allergy (Verified 10/07/23 09:10) Nausea STATINS Allergy (Mild, Uncoded 10/07/23 09:10) HEART PALPITATIONS Medication List - Last Reconciled 04/09/25 by Juan Daniel Quijano MD lorazepam 1 mg PO BEDTIME PRN warfarin 5 mg PO DAILY HPI Comments Details: Abdoulaye returns for follow-up. Has had various issues over time as summarized. 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 Then he was having symptoms like dizziness/presyncope. Tilt-table had shown orthostatic hypotension. It was felt that could be related to drastic weight loss. That seems to have stabilized at this time. He has had random chest pains at different times most likely musculoskeletal. Coronary CTA in the past without any significant CAD. Most recently, underwent implantable loop recorder removal. He states he feels fine for the most part but he still gets some chest pains off and on. They are totally nonspecific and can happen any time. In fact he can work out on the treadmill for more than an hour with no issues but other times when he is not exerting himself he can feel some sharp pains. Hence most likely musculoskeletal sounding. [facility] Medical History (Updated 12/29/24 @ 07:47 by Lisset Almonte, [employer]) Orthostatic hypotension Hereditary deficiency of other clotting factors Depression GERD (gastroesophageal reflux disease) Anxiety Obesity Hyperlipidemia Sleep apnea Pulmonary embolism Factor V Leiden Surgical History History of cardiac radiofrequency ablation Hx of cardiac cath Hx of knee surgery Presence of cardiac and vascular implant and graft Hx of neck surgery Family History Mother Cancer Father Diabetes Hypertension Heart disease Heart attack Sister No problems noted. Brother No problems noted. Sister Factor 5 Leiden mutation, heterozygous Son Factor 5 Leiden mutation, heterozygous Daughter No problems noted. Daughter No problems noted. Daughter Multiple sclerosis Social History Are you a primary director of patient care to a significant other at home: Yes Do you presently have visiting nurse or other home services: No Alcohol intake: never Patient Tobacco Use Status: Never used Tobacco Review of Systems Const Denies weakness ENT Denies dizziness Card Reports chest pain, Reports chest pain at rest, Reports chest pain with activity, Denies syncope, Denies rapid heart rate, Denies pedal edema, Denies edema, Denies leg edema, Denies lightheadedness, Denies palpitations, Denies dyspnea, Denies dyspnea on exertion and Denies orthopnea Resp Denies cough, Denies dyspnea and Denies dyspnea on exertion GI Denies hematochezia and Denies change in stool character Musc Denies abnormal gait, Denies muscle cramps, Denies muscle weakness, Denies numbness, Denies radiating pain into limb and Denies tingling Neuro Denies abnormal gait, Denies dizziness, Denies syncope, Denies numbness, Denies tingling and Denies weakness Endo Denies palpitations Physical Exam Vital Signs: Last Vital Signs Pulse 57 04/09/25 13:35 BP 90/60 04/09/25 13:35 Const General: comfortable and no acute distress Orientation/consciousness: patient oriented x3 HEENT Other: Unremarkable Head: Yes normal to inspection Neck Neck: Yes normal visual inspection Chest Chest palpation & inspection: normal inspection of the chest Resp Auscultation: clear to auscultation bilaterally Cardio Palpation: normal PMI Heart sounds: S1 normal heart sound present, S2 normal heart sound present, no gallops, no murmurs and no rubs GI Palpation (GI): Soft to palpation Back/Spine/Pelvis Other: unremarkable Skin General skin exam: no rashes or lesions noted Neuro General: patient oriented x3 Extrem General: Yes normal to inspection Psych Mental Status: mental status grossly normal Office Procedures EKG Details: EKG with underlying sinus bradycardia at 57/Min; no ischemic changes; [place] [id number], Complete Assessment & Plan Assessment & Plan (1) SVT (supraventricular tachycardia): Code(s): I47.1 - Supraventricular tachycardia Category: Medical (2) Sinus bradycardia: Code(s): R00.1 - Bradycardia, unspecified Category: Medical (3) Atherosclerotic cardiovascular disease: Code(s): I25.10 - Atherosclerotic heart disease of [place] coronary artery without angina pectoris Category: Medical (4) Orthostatic hypotension: Code(s): I95.1 - Orthostatic hypotension Category: Medical Plan Cardiac studies reviewed. Echocardiogram with LVEF of 61%. No wall motion abnormalities. Normal diastolic function. Otherwise unremarkable. Coronary CTA shows only mild coronary disease. Nothing hemodynamically significant. Tilt-table study positive orthostatic hypotension. Status post AVNRT ablation. With regard to the AVNRT, seems resolved at this time. With regard to the orthostatic hypotension -could be because of weight loss. Seems to have stabilized. Avoid losing excessive weight as that may again precipitate hypotension. With regard to the sinus bradycardia, no specific management. Not on rate slowing drugs. With regard to mild CAD, lipids requested in the past but not completed yet. He states that he cannot takes statins as he has had many side effects. With regard to chest pains, most likely musculoskeletal and mainly reassured. Discussion Notes I discussed with the patient that the likelihood of new cardiac blockages is low, given his ability to exercise without symptoms and his current medication regimen. We reviewed that the chest pain is unlikely to be cardiac in origin, considering the reassuring results from previous echocardiograms and CT scans. I advised him to monitor his symptoms and report any changes, especially if pain occurs during exertion, such as climbing stairs. Additionally, I recommended maintaining his current weight to avoid issues related to low blood pressure. Patient was informed and verbally consented to the use of an ambient scribe for clinic note documentation during this visit. Patient Instructions: - Monitor symptoms and report any changes, especially if pain occurs during exertion. - Maintain current weight to avoid issues related to low blood pressure. Coding Level of Care Code Est Pt Level 4 (33830) Complex EM visit Add On G2211 Diagnoses SVT (supraventricular tachycardia) I47.1 Sinus bradycardia R00.1 Atherosclerotic cardiovascular disease I25.10 Orthostatic hypotension I95.1 CPT Codes EKG - CPT: 04435-[id number], Complete ([id number])
== END 2025-04-09 14:03 | disposition home or self-care (01) ==
LOC: HO.HCS 13:25
PROVIDERS: PCP Internal Medicine; Visit Provider Internal Medicine
DX: I47.10 Supraventricular tachycardia, unspecified (principal); R00.1 Bradycardia, unspecified; I25.10 Atherosclerotic heart disease of native coronary artery without angina pectoris; I95.1 Orthostatic hypotension
CPT/HCPCS: 93010; 99214; G2211

== ENCOUNTER → 2025-04-09 13:25 | Outpatient (BNVA) | payer OTHER, SELFPAY | PROVIDERS: PCP Internal Medicine; Visit Provider Internal Medicine | DX: I95.1 Orthostatic hypotension (principal); I47.10 Supraventricular tachycardia, unspecified; R00.1 Bradycardia, unspecified; I25.10 Atherosclerotic heart disease of native coronary artery without angina pectoris | CPT/HCPCS: 93005; 99212 ==